=== PATIENT | female | born 1945 | race Caucasian/White ===

== ENCOUNTER 2021-11-24 10:31 | Emergency (ER) | payer MEDICARE, SELFPAY ==
--- NOTE | ~2021-11-24 | XR_ITS ---
EXAMINATION: XR chest 2V DATE: 11/24/2021 11:32 INDICATION: Cough TECHNIQUE: PA and lateral views of the chest are obtained. COMPARISON: None available FINDINGS: An 8 mm nodule projects in the right midlung zone PA view. There are minimal airspace opaci ties left lower lobe. There is no pleural effusion or pneumothorax. The cardiomediastinal silhouette is normal. There is moderate thoracic spondylosis. IMPRESSION: 1. Left lower lobe airspace opacity, likely infectious or inflammatory. 2. Indeterminate right lung nodule. Follow-up with nonemergent CT of the chest is recommended. Reviewed, dictated and finalized at location A. GGER
[2021-11-24 10:40] VITALS: BP 153/70; PULSE 88; RESP 16; TEMP 37.4; O2SAT 99
--- NOTE | 2021-11-24 11:33 | ED.GENADULT ---
HPI - General Adult General Chief complaint: Upper Respiratory Infection Stated complaint: losing voice/facial pressure/neck pain/fever Source: patient Mode of arrival: ambulatory Limitations: no limitations History of Present Illness HPI narrative: Patient presents for evaluation of respiratory symptoms for last 2 days. She indicates she feels like she is lost (her) voice . She reports postnasal drainage without any congestion or significant discharge from her nares. She had a temperature of 100.2 F last night. She has some chronic SOB which she attributes to asthma. She does have exertional dyspnea and nonproductive cough. No chills, nausea, vomiting, diarrhea or chest pain. No recent sick contacts. She took three COVID test within the last week and have as she was traveling. All of these tests were negative. She took a home Covid last night which was also negative. She does not smoke. She did receive both doses of her COVID vaccine but not her booster. She uses symbicort at home once per day but has not used an albuterol inhaler. No additional complaints or concerns. Related Data Home Medications Medication Instructions Recorded Confirmed budesonide-formoterol [Symbicort] INHALATION 11/24/21 escitalopram oxalate mg 11/24/21 Allergies Allergy/AdvReac Type Severity Reaction Status Date / Time No Known Allergies Allergy Verified 11/24/21 10:44 Review of Systems Review of Systems: CONSTITUTIONAL: Reports fever. Denies chills. EYES: Denies visual changes, redness, or discharge. ENT: Reports losing her voice and postnasal drainage. Denies sore throat, otalgia CARDIOVASCULAR: Denies chest pain, palpitations, or edema. RESPIRATORY: Nonproductive cough and shortness of breath. GASTROINTESTINAL: Denies abdominal pain, nausea, vomiting, or diarrhea. GENITOURINARY: Denies dysuria or hematuria. SKIN: Denies rash or itching. MUSCULOSKELETAL: Denies back pain, joint pain, or myalgia. NEUROLOGIC: Denies headache, numbness, dizziness, or weakness. PSYCHIATRIC: Denies anxiety or depression. ON LICENSE OF [facility] Past Medical History Medical History (Updated 11/24/21 @ 11:51 by Indio Baltazar, RADHA, ) History of breast cancer Surgical History Surgical History History of lumpectomy History of partial hysterectomy Family History Family History Mother COPD (chronic obstructive pulmonary disease) Breast cancer Social History Social History Smoking status: Never smoker Substance use: never Living arrangements: alone Gender identity (if verbalized by the patient): Female Sexual Orientation (if Verbalized by the Patient): Straight or Heterosexual Spiritual care concerns: No Exam Narrative: GENERAL: Well-appearing, well-nourished, and in no acute distress. HEAD: Normocephalic, atraumatic. EYES: PERRLA and EOMI. ENT: Nares clear, no rhinorrhea or epistaxis. Mucous membranes moist. Oropharynx without tonsillar hypertrophy exudate or other lesions. There is posterior pharyngeal erythema. Bilateral TMs pearly stapleton nonbulging NECK: Supple. No adenopathy or masses. No carotid bruits or JVD CHEST: Clear to auscultation. No respiratory distress. No wheezes rales or rhonchi HEART: Regular rate and rhythm. No murmur heard. Normal peripheral pulses. ABDOMEN: Soft, nontender, nondistended, normal active bowel sounds. EXTREMITIES: Normal range of motion. No edema. SKIN: Warm, dry, no rash. NEURO: No focal deficits. Alert and oriented x3. PSYCH: Normal mood and affect. Course Course Emergency Course: This is a 76-year-old female who presented with complaints of respiratory symptoms for last 2 days. Flu, strep are all negative. Chest x-ray with left lower lobe opacity. Will treat for pneumonia. She also has a pulmonary nodule and was ad
[2021-11-26 17:26] LABS: SARS-CoV-2 RNA PCR Negative
== END 2021-11-24 12:05 | disposition home or self-care (01) ==
PROVIDERS: Emergency Provider Nurse Practitioner; PCP Internal Medicine
DX: J18.1 Lobar pneumonia, unspecified organism (principal); Z20.822 Contact with and (suspected) exposure to COVID-19; Z85.3 Personal history of malignant neoplasm of breast
CPT/HCPCS: 71046; 87081; 87426; 87804; 87880; 99213; C9803; G0463; U0003; U0005

== ENCOUNTER 2022-01-03 08:26 | Outpatient (CLI) | payer MEDICARE, SELFPAY ==
--- NOTE | ~2022-01-03 | CT_ITS ---
EXAMINATION: CT diagnostic chest w con DATE: 01/03/2022 08:45 INDICATION: Solitary pulmonary nodule TECHNIQUE: Transaxial computed tomographic images of the chest were obtained after the administration of 75 cc of Omnipaque 350 intravenous contrast. The dose-length product (DLP) was 134.66 mGy-cm. Ite rative reconstruction was used. COMPARISON: Chest radiograph, 11/24/2021 FINDINGS: No suspicious nodule is identified to correlate with the abnormality seen on the recent marivel st radiograph. Calcified pulmonary nodules and calcified bilateral hilar and mediastinal lymph nodes are consistent with old granulomatous disease. There are minimal airspace opacities of the right uppe r lobe and left lower lobe. There is no pleural effusion or pneumothorax. There is moderate thoracic spondylosis. IMPRESSION: 1. No suspicious lung nodules identified. 2. Minimal airspace opacities of the right upper and left lower lobes, likely infectious or inflammat ory. Reviewed, dictated and finalized at location B. IMPRESSION: 1. No suspicious lung nodules identified. 2. Minimal airspace opacities of the right upper and left lower lobes, likely i nfectious or inflammatory.
== END 2022-01-03 08:27 | disposition home or self-care (01) ==
LOC: ANHIMG 08:29
PROVIDERS: PCP Internal Medicine; Visit Provider Internal Medicine
DX: R91.1 Solitary pulmonary nodule (principal)
CPT/HCPCS: 71260; Q9967

== ENCOUNTER 2022-03-14 12:52 | Outpatient (CLI) | payer MEDICARE, SELFPAY ==
--- NOTE | ~2022-03-14 | DEXA_ITS ---
Bone Density Report Name: DESTIN LOYA Age: 76 Sex: Female Ethnicity: White Date of : 1945 Indication: postmenopausal; screening for osteoporosis; height loss; cancer; asthma or emphysema; hysterectomy; Referring Provider: AFTAB GARRETT Study: Bone densitometry was performed. Exam Date: March 14, 2022 Accession number: [id number] Bone Density: Region BMD T-score Z-score Classification AP Spine(L1-L4) 0.923 -1.1 1.4 Osteopenia Femoral Neck (Left) 0.667 -1.6 0.5 Osteopenia Total Hip (Left) 0.793 -1.2 0.7 Osteopenia Femoral Neck (Right) 0.709 -1.3 0.9 Osteopenia Total Hip (Right) 0.731 -1.7 0.2 Osteopenia Total Hip Mean 0.762 -1.5 0.5 Osteopenia World Health Organization criteria for BMD impression classify patients as: Normal (T-score at or above -1.0), Osteopenia (T-score between -1.0 and -2.5), or Osteoporosis (T-score at or below -2.5). 10-year Fracture Risk(1): Major Osteoporotic Fracture 13% Hip Fracture 3.0% Reported Risk Factors: [place] (), Neck BMD=0.667, BMI=25.9 (1) FRAX(R) Version 3.08. Fracture probability calculated for an untreated patient. Fracture probability may be lower if the patient has received treatment. Clinical Information Provided by Patient: Has used the following medications: Vitamin D Has the following medical conditions: Asthma or Emphysema, Cancer, Hysterectomy Patient maximum height was 66 Menopause Age: 52 No regular weight bearing exercise Drinks caffeinated beverages Onset of menses at age 11 Number of children 2 Impression: The patient has low bone mass, based on the Right Total Hip T-score. The patient has an estimated ten-year risk of hip fracture of 3% and an estimated ten-year risk of major fracture of 13%, based on the WHO FRAX algorithm. Discussion: BONE DENSITY IS LOW AT ONE OR MORE SKELETAL SITES. THE PATIENT'S BMD AND CLINICAL RISK FACTORS CONTRIBUTE TO THIS PATIENT'S INCREASED RISK OF FRACTURE. This patient's lowest T-score is low at one or more skeletal sites. It meets the World Health Organization's (WHO) criteria for ?low bone mass? (T-score between -1.0 and -2.5). The patient's 10-year risk of hip fracture as calculated by FRAX exceeds the threshold where pharmacological therapy is recommended by the National Osteoporosis Foundation (NOF). However, all treatment decisions require clinical judgment and consideration of individual patient factors, including patient preferences, comorbidities, previous drug use, risk factors not captured in the FRAX model (e.g., frailty, falls, vitamin D deficiency, increased bone turnover, interval significant decline in bone density) and possible under or overestimation of fracture risk by FRAX. The patient should follow a healthful lifestyle (good nutrition with adequate
== END 2022-03-14 12:53 | disposition home or self-care (01) ==
PROVIDERS: PCP Internal Medicine; Visit Provider Internal Medicine
DX: Z78.0 Asymptomatic menopausal state (principal); M85.88 Other specified disorders of bone density and structure, other site; M85.851 Other specified disorders of bone density and structure, right thigh; M85.852 Other specified disorders of bone density and structure, left thigh
CPT/HCPCS: 77080

== ENCOUNTER 2022-10-23 12:17 | Outpatient (CLI) | payer MEDICARE, SELFPAY ==
--- NOTE | ~2022-10-23 | US_ITS ---
EXAMINATION: US soft tissue UE RT DATE: 10/23/2022 13:11 INDICATION: New onset pulsatile mass at the radial volar aspect of the wrist. TECHNIQUE: Multiple grayscale and Doppler ultrasound images of the region of concern at the radial si de of the volar aspect of the wrist/carpus were obtained. COMPARISON: None FINDINGS: 8 x 7 x 4 mm loculated anechoic fluid collection at the region of concern. There appears to be subtle hypoechoic neck tracking deeper towards the joint spaces at the palmar/radial aspect of the carpus. The radial artery and vein pass superficial to the cystic lesion. On real-time ultrasound a small bra nch of the radial artery can be seen tracking abutting the peripheral margin of but continuing beyond the cystic lesion. There is no evident internal flow within the cystic lesion on color Doppler to perez ggest pseudoaneurysm. Location appearance would be most consistent with a ganglion cyst. IMPRESSION: 1. 8 x 7 x 4 mm likely ganglion cyst at the region of concern Reviewed, dictated and finalized at location A. ET MARKER
== END 2022-10-23 12:18 | disposition home or self-care (01) ==
LOC: ANHIMG 12:18
PROVIDERS: PCP Internal Medicine; Visit Provider Internal Medicine
DX: M79.89 Other specified soft tissue disorders (principal)
CPT/HCPCS: 76882

== ENCOUNTER 2023-12-01 12:54 | Outpatient (CLI) | payer MEDICARE, SELFPAY ==
[2023-12-01 13:24] LABS: Basophils Absolute Auto 0.1 K/mm3 (0.0-0.1); Basophils Percent Auto 0.9 % (0.2-1.2); Eosinophils Absolute Auto 0.2 K/mm3 (0-0.3); Eosinophils Percent Auto 2.7 % (0-4.4); Hematocrit 37.5 % (37.0-47.0); Hemoglobin 12.2 g/dL (12.0-15.0); Immature Granulocyte Absolute 0.04 K/mm3 (0.00-0.031); Immature Granulocyte Percent A 0.5 % (0-0.5); Lymphocytes Absolute Auto 1.18 K/mm3 (0.9-3.2); Mean Corpuscular HGB Conc 32.5 g/dl (32-36); Mean Corpuscular Hemoglobin 30.8 pg (26-34); Mean Corpuscular Volume 94.7 fl (80-100); Mean Platelet Volume 8.5 fl (7.4-10.4); Monocytes Absolute Auto 0.8 K/mm3 (0.1-0.6); Monocytes Percent Auto 9.2 % (2.6-8.5); Neutrophils Absolute Auto 6.1 K/mm3 (1.3-6.7); Neutrophils Percent Auto 72.7 % (45.5-73.1); Platelet Count Result 402 k/mm3 (150-375); Red Blood Count 3.96 M/mm3 (4.2-5.4); Red Cell Distribution Width 12.9 % (11.5-14.5); White Blood Count 8.5 K/mm3 (4.5-10.0)
[2023-12-01 13:36] LABS: Anion Gap 7 mmol/L (8-16); Blood Urea Nitrogen 7 mg/dL (7-17); Calcium 9.2 mg/dL (8.4-10.2); Carbon Dioxide 27 mmol/L (22-30); Chloride 103 mmol/L (98-107); Estimated Glomerular Filt Rate > 60; Glucose 97 mg/dL (65-110); Potassium 4.2 mmol/L (3.4-5.0); Sodium 137 mmol/L (137-145)
[2023-12-01 13:37] LABS: INR 1.2; Prothrombin Time 16.4 Seconds (11.1-14.7)
[2023-12-01 13:39] LABS: Partial Thromboplastin Time 76.9 SECONDS (22.3-36.8)
[2023-12-01 13:45] LABS: NT Pro B Type Natriuretic Pept 373 pg/mL (19.9-100)
== END 2023-12-01 12:55 | disposition home or self-care (01) ==
LOC: ANHLAB 12:59
PROVIDERS: PCP Internal Medicine; Visit Provider Internal Medicine
DX: R07.9 Chest pain, unspecified (principal); R06.02 Shortness of breath; R06.09 Other forms of dyspnea; I10 Essential (primary) hypertension
CPT/HCPCS: 36415; 80048; 83880; 85025; 85610; 85730

== ENCOUNTER 2023-12-01 14:47 | Outpatient (CLI) | payer MEDICARE, SELFPAY ==
--- NOTE | ~2023-12-01 | CT_ITS ---
EXAMINATION: CTA chest PE protocol DATE: 12/01/2023 15:14 INDICATION: Shortness of breath TECHNIQUE: Computed tomography angiography (CTA) of the chest was performed with 100 mL Omnipaque-350 intravenous contrast timed to evaluate the pulmonary arteries. Coronal maximum intensity projection 3D-reconstructions were created by the technologist. The dose-length product (DLP) was 233.97 mGy-cm. Automated exposure control and iterative reconstruction technique were employed. COMPARISON: 01/03/2022 FINDINGS: The pulmonary arteries are well-opacified. No pulmonary embolism is identified. There are patchy airspace opacities throughout the lungs, worst in the upper lobes. No pleural effusion or pneu mothorax. Calcified pulmonary nodules and calcified bilateral hilar and mediastinal lymph nodes are c onsistent with old granulomatous disease. There is mild right hilar lymphadenopathy. The heart size i s normal. Calcified coronary artery atherosclerosis is noted. There is severe thoracic spondylosis. A chronic mild compression fracture of T6 is noted. IMPRESSION: 1. No pulmonary embolus identified. 2. Patchy airspace opacities throughout all lung zones, consistent with pneumonia. Reviewed, dictated and finalized at location B. UIT BOARD DRAFTER IMPRESSION: 1. No pulmonary embolus identified. 2. Patchy airspace opacities throughout all lung zones, consistent with pneumon ia.
== END 2023-12-01 14:48 | disposition home or self-care (01) ==
LOC: ANHIMG 14:50
PROVIDERS: PCP Internal Medicine; Visit Provider Internal Medicine
DX: R06.02 Shortness of breath (principal); R06.09 Other forms of dyspnea; R91.8 Other nonspecific abnormal finding of lung field
CPT/HCPCS: 36415; 71275; 80048; 83880; 85025; 85610; 85730; Q9967

== ENCOUNTER 2023-12-05 13:49 | Outpatient (CLI) | payer MEDICARE, SELFPAY ==
--- NOTE | ~2023-12-05 | XR_ITS ---
XR chest 2V 12/05/2023 14:02 Indication: Pneumonia. Procedure: 2 view chest Comparison: CT dated 12/01/19 Findings: Ill-defined infiltrates of the right mid and lower lung, compatible with pneumonia. Heart s ize normal. There is atherosclerosis and ectasia of the aorta. There are calcified granulomas bilater ally. No acute osseous abnormality. No significant effusion or pneumothorax. Impression: 1: Ill-defined infiltrates of the right mid and lower lung, compatible with pneumonia. Reviewed, dictated and finalized at location A. CH LANG PATH Impression: 1: Ill-defined infiltrates of the right mid and lower lung, compatible with pne umonia.
== END 2023-12-05 13:50 | disposition home or self-care (01) ==
PROVIDERS: PCP Internal Medicine; Visit Provider Internal Medicine
DX: J18.9 Pneumonia, unspecified organism (principal); R91.8 Other nonspecific abnormal finding of lung field
CPT/HCPCS: 71046

== ENCOUNTER 2024-01-01 13:18 | Outpatient (CLI) | payer MEDICARE, SELFPAY ==
--- NOTE | ~2024-01-01 | XR_ITS ---
XR chest 2V DATE: 01/01/2024 13:42 INDICATION: Cough TECHNIQUE: PA and lateral views COMPARISON: 12/05/2023 PA and lateral chest FINDINGS: Normal heart size. Mild aortic tortuosity and calcification. No hilar or mediastinal enlarg ement. Moderate bilateral hyperinflation. No pulmonary infiltrate or consolidation, pleural effusion or pulmonary mass congestion or pneumothor ax. Osteopenia. Mild degenerative spurring of the thoracic and lumbar spine. IMPRESSION: Moderate bilateral hyperinflation; no active cardiopulmonary disease Reviewed, dictated and finalized at location L. IMPRESSION: Moderate bilateral hyperinflation; no active cardiopulmonary diseas e
[2024-01-01 14:18] LABS: Anion Gap 5 mmol/L (8-16); Blood Urea Nitrogen 13 mg/dL (7-17); Calcium 9.8 mg/dL (8.4-10.2); Carbon Dioxide 31 mmol/L (22-30); Chloride 101 mmol/L (98-107); Estimated Glomerular Filt Rate > 60; Glucose 97 mg/dL (65-110); Potassium 3.8 mmol/L (3.4-5.0); Sodium 137 mmol/L (137-145)
[2024-01-01 14:24] LABS: NT Pro B Type Natriuretic Pept 232 pg/mL (19.9-100)
== END 2024-01-01 13:19 | disposition home or self-care (01) ==
PROVIDERS: PCP Internal Medicine; Visit Provider Internal Medicine
DX: R05.9 Cough, unspecified (principal); I10 Essential (primary) hypertension; R06.09 Other forms of dyspnea; R91.8 Other nonspecific abnormal finding of lung field
CPT/HCPCS: 36415; 71046; 80048; 83880

== ENCOUNTER 2024-04-28 15:42 | Outpatient (CLI) | payer MEDICARE, SELFPAY ==
--- NOTE | ~2024-04-28 | XR_ITS ---
AP lateral views of the right hip Clinical history: Pain Findings: No acute fracture or dislocation is seen. Osseous alignment is anatomic. There is mild dege nerative change of the right hip joint.. Soft tissues are unremarkable. Impression: Mild degenerative change of the right hip joint. Reviewed, dictated and finalized at location . Impression: Mild degenerative change of the right hip joint.
--- NOTE | ~2024-04-28 | XR_ITS ---
Lumbosacral Spine: AP and lateral views Clinical History: Pain Findings: The normal lordotic curve is maintained. No fracture evident. There is 5-6 mm anterolisthes is of L4 over L5. There are severe facet arthropathy cervical spine, especially from L3 through S1. T here are mild degenerative disc changes throughout.. The sacroiliac joints are normally outlined. Impression: Moderate to advanced degenerative spondylosis, with extensive facet arthropathy, as detailed above. 5-6 mm anterolisthesis of L4 over L5. No definite instability seen on flexion or extension. Reviewed, dictated and finalized at location . Impression: Moderate to advanced degenerative spondylosis, with extensive facet arthropathy , as detailed above. 5-6 mm anterolisthesis of L4 over L5. No definite instability seen on flexion o r extension.
== END 2024-04-28 15:43 | disposition home or self-care (01) ==
LOC: ANHIMG 15:43
PROVIDERS: PCP Internal Medicine; Visit Provider Internal Medicine
DX: M16.11 Unilateral primary osteoarthritis, right hip (principal); M47.896 Other spondylosis, lumbar region
CPT/HCPCS: 72110; 73502

== ENCOUNTER 2024-05-03 13:47 | Outpatient (CLI) | payer MEDICARE, SELFPAY ==
--- NOTE | ~2024-05-03 | MR_ITS ---
EXAMINATION: MR lumbar spine wo con DATE: 05/03/2024 14:25 INDICATION: Spondylosis without myelopathy or radiculopathy TECHNIQUE: Magnetic resonance imaging (MRI) of the lumbar spine was performed without intravenous con trast. Sequences included sagittal T2-weighted FSE, sagittal T2-weighted FS FSE, sagittal T1-weighted FSE, and axial T2-weighted FSE. COMPARISON: None FINDINGS: 9 degrees lumbar dextrocurvature. 1.5 mm retrolisthesis T12 on L1, 2 mm retrolisthesis L1 on L2, 4 mm anterolisthesis L4 on L5 and 2 mm retrolisthesis L5 on S1. Vertebral body heights are normal. Severa l scattered small T1 hyperintense hemangiomas throughout the lumbar and lower thoracic spine. Marrow signal is otherwise unremarkable. Mild disc height loss at T11-T12 through L2-L3, minimal disc height loss at L3-L4, mild to moderate disc height loss at L4-L5 and moderate to severe disc height loss at L5-S1. There are annular fissures at many of these levels. The conus medullaris terminates at L1. Th ere is normal signal in the caudal spinal cord. Paravertebral soft tissues are unremarkable. The foll owing disc levels are specifically discussed: T12-L1: Disc is bulging. There is moderate bilateral facet joint osteoarthritis. There is mild bilate ral neural foraminal stenosis. There is mild central canal stenosis. L1-L2: Disc is bulging. There is moderate bilateral facet joint osteoarthritis. There is moderate lef t and mild to moderate right neural foraminal stenosis. There is mild central canal stenosis. L2-L3: Disc is mildly bulging a superimposed bilateral foraminal zone disc protrusions. There is hype rtrophy of the ligamentum flavum. There is moderate left and mild to moderate right facet joint osteo arthritis. There is mild to moderate bilateral neural foraminal stenosis. There is mild central canal stenosis. L3-L4: Disc is mildly bulging. There is hypertrophy of the ligamentum flavum. There is severe bilater al facet joint osteoarthritis. There is mild bilateral neural foraminal stenosis. There is mild centr al canal stenosis. L4-L5: Disc is bulging. There is hypertrophy of the ligamentum flavum. There is severe bilateral face t joint osteoarthritis. There is mild to moderate bilateral neural foraminal stenosis. There is mild to moderate central canal stenosis with narrowing of the left and right lateral recesses. L5-S1: Disc is bulging with superimposed annular fissure and central disc extrusion with disc materia l extending up to 4 mm caudal to the level of the superior endplate of S1. There is severe right and moderate to severe left facet joint osteoarthritis. There is moderate bilateral neural foraminal sten osis. There is minimal central canal stenosis. IMPRESSION: 1. 9 degrees lumbar dextrocurvature with moderate to severe spondylosis. Reviewed, dictated and finalized at location A.
== END 2024-05-03 13:48 ==
PROVIDERS: Visit Provider Internal Medicine
DX: M47.812 Spondylosis without myelopathy or radiculopathy, cervical region (principal); M54.9 Dorsalgia, unspecified; M47.896 Other spondylosis, lumbar region
CPT/HCPCS: 72148

== ENCOUNTER 2024-09-13 13:06 | Outpatient (CLI) | payer MEDICARE, SELFPAY ==
--- NOTE | ~2024-09-13 | XR_ITS ---
XR_[id number]_CR Ordering provider: Faustino Kendrick MD History: . M54.9 - Dorsalgia, unspecified, PAIN TO NECK HX FALL . Comparison: None. FINDINGS: VERTEBRAL BODIES: Horizontal lucency seen in C5 which is highly suggestive of a fracture. CT is advis ed. Otherwise Normal height and alignment. No visible subluxation. The dens is intact. DISK SPACES: Narrowing of the disc C5-C6. Multilevel facet joint disease. Multilevel Uncovertebral beth int osteoarthritic changes PARASPINOUS SOFT TISSUES: No prevertebral soft tissue swelling. IMPRESSION: Highly suggestive horizontal fracture and C5. CT or MRI is advised for confirmation. Degenerative disc disease at the level of C5-C6. Reviewed, dictated and finalized at location A. TION AND MEASUREMENT TECHNICIAN IMPRESSION: Highly suggestive horizontal fracture and C5. CT or MRI is advised for confirma tion. Degenerative disc disease at the level of C5-C6.
--- NOTE | ~2024-09-13 | XR_ITS ---
XR ribs BI 3V w CXR 2V Ordering provider: Faustino Kendrick MD History: . M54.9 - Dorsalgia, unspecified . Comparison: None. FINDINGS: BONES: No acute rib fracture. Degenerative spine. MEDIASTINUM: The cardiac silhouette is not enlarged. LUNGS: No effusions or infiltrates. No pneumothorax. Emphysematous changes of the lungs. SOFT TISSUES: Normal. IMPRESSION: No acute osseous abnormality of the bilateral ribs. (Note: subtle/nondisplaced rib fractures can be o ccult on plain films and if there is continued clinical suspicion for rib fracture, recommend follow up CT chest.) Reviewed, dictated and finalized at location A. AL GENETICIST IMPRESSION: No acute osseous abnormality of the bilateral ribs. (Note: subtle/nondisplaced rib fractures can be occult on plain films and if there is continued clinical s uspicion for rib fracture, recommend follow up CT chest.)
--- NOTE | ~2024-09-13 | XR_ITS ---
3 VIEWS THORACIC SPINE Ordering provider: Faustino Kendrick MD History: . M54.9 - Dorsalgia, unspecified, PAIN UPPER BACK HX FALL . Comparison: None. FINDINGS: VERTEBRAL BODIES: Loss of volume of T4 and T5 which may be acute or chronic. CT evaluation advised. O therwise, Normal height and alignment. No visible subluxation. Degenerative changes. Severe kyphosis. DISK SPACES: Multilevel narrowing in the mid and lower thoracic area. SOFT TISSUES: Normal. IMPRESSION: Loss of volume of T4 and C5 which may be acute or chronic. CT evaluation advised. Reviewed, dictated and finalized at location A. SKATING INSTRUCTOR IMPRESSION: Loss of volume of T4 and C5 which may be acute or chronic. CT evaluation advise fernando
== END 2024-09-13 13:07 | disposition home or self-care (01) ==
PROVIDERS: PCP Internal Medicine; Visit Provider Internal Medicine
DX: M50.322 Other cervical disc degeneration at C5-C6 level (principal)
CPT/HCPCS: 71046; 71110; 72040; 72072

== ENCOUNTER 2024-09-14 12:33 | Emergency (ER) | payer MEDICARE, SELFPAY ==
--- NOTE | ~2024-09-14 | CT_ITS ---
EXAMINATION: CT thoracic spine wo con DATE: 09/14/2024 13:16 INDICATION: Back pain. TECHNIQUE: Computed tomography (CT) of the thoracic spine was performed without intravenous contrast. Automated exposure control and iterative reconstruction technique were employed. The dose-length pro duct was 542.07 mGy-cm. COMPARISON: Thoracic spine radiographs 09/13/2024, chest CT 12/01/2023 FINDINGS: Calcified pulmonary nodules and calcified hilar and mediastinal lymph nodes are consistent with old granulomatous disease. Calcifications in the liver and spleen are consistent with old granul omatous disease. There is kyphosis of thoracic spine. There are chronic compression fractures of T4 a nd T6 with 1/5 loss of height. There is a compression fracture of T5 with 1/5 loss of height, new fro m 12/01/2023. There is decreased disc height at many levels, severe from T4-T5 through T8-T9. There is multilevel facet joint osteoarthritis, severe at many levels. There is mild neural frontal stenosis at multiple levels on either side. On the left, there is moderate neural foraminal stenosis at L1-L2. There is mild central canal stenosis at T6-T7, T7-T8, T12-L1, and L1-L2. IMPRESSION: 1. Age-indeterminate T5 compression fracture, new from 12/01/2023. 2. Severe thoracic spondylosis. 3. Thoracic kyphosis. Reviewed, dictated and finalized at location A. 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
--- NOTE | ~2024-09-14 | CT_ITS ---
EXAMINATION: CT cervical spine wo con DATE: 09/14/2024 13:16 INDICATION: C5 fracture. Dorsalgia. TECHNIQUE: Computed tomography (CT) of the cervical spine was performed without intravenous contrast. Automated exposure control and iterative reconstruction technique were employed. The dose-length pro duct was 169.00 mGy-cm. COMPARISON: Cervical spine radiographs 09/13/2024 FINDINGS: There is 2 mm anterolisthesis of C4 on C5, 2 mm retrolisthesis of C5 on C6, and 2 mm scout listhesis of C7 on T1. Vertebral body heights are normal. There is moderately decreased disc height a t C2-C3, mildly decreased disc height at C4-C5, severely decreased disc height at C5-C6, moderately d ecreased disc height at C6-C7, and mildly decreased disc height at C7-T1. The following disc levels a re specifically discussed: C2-C3: There is mild bilateral uncovertebral joint osteoarthritis. There is severe bilateral facet beth int osteoarthritis. There is mild bilateral neural foraminal stenosis. There is no central canal sten osis. C3-C4: There is mild right and moderate left uncovertebral joint osteoarthritis. There is severe bila teral facet joint osteoarthritis. There is mild right and moderate left neural foraminal stenosis. Th ere is no central canal stenosis. C4-C5: There is mild bilateral uncovertebral joint osteoarthritis. There is severe bilateral facet beth int osteoarthritis. There is mild bilateral neural foraminal stenosis. There is mild central canal st enosis. C5-C6: There is severe bilateral uncovertebral joint osteoarthritis. There is severe bilateral facet joint osteoarthritis. There is mild right and moderate left neural foraminal stenosis. There is moder ate central canal stenosis. C6-C7: There is moderate right and mild left uncovertebral joint osteoarthritis. There is severe bila teral facet joint osteoarthritis. There is mild right and moderate left neural foraminal stenosis. Th ere is mild central canal stenosis. C7-T1: There is no uncovertebral joint osteoarthritis. There is severe bilateral facet joint osteoart hritis. There is mild bilateral neural foraminal stenosis. There is no central canal stenosis. IMPRESSION: 1. No fracture. 2. Severe cervical spondylosis. Reviewed, dictated and finalized at location A. 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
[2024-09-14 12:36] VITALS: BP 176/79; PULSE 72; RESP 16; TEMP 36.3; O2SAT 100
--- NOTE | 2024-09-14 13:52 | ED_ITS ---
HPI - General Adult General Chief complaint: Back Pain/Injury Stated complaint: told to come here by PCP for c-spine fracture Time Seen by Provider: 09/14/24 13:17 History of Present Illness HPI narrative: 78-year-old female presenting to the emergency department for evaluation for lalit k pain after having a ground level fall approximately 3 weeks ago. Patient states that she stumbled getting onto her porch when she laid on her right side. Patient denies striking head denies loss of consciousness. Patient states she is still having intermittent back pain. Patient did have follow-up with her primary care physician she had outpatient imaging that was concerning for neck pathology and patient was referred to the emergency department for further evaluation. Related Data Home Medications Medication Instructions Recorded Confirmed calcium carbonate (Calcium 600) 600 mg PO BID 03/20/22 09/13/24 cholecalciferol (vitamin D3) 25 50 mcg PO DAILY 03/20/22 09/13/24 mcg (1,000 unit) capsule fluticasone fur. 100 mcg-umeclid 1 inh inhalation DAILY 06/20/22 09/13/24 62.5 mcg-vilant 25 mcg inhalat.powder (Trelegy Ellipta) ascorbate calcium (vitamin C) 500 500 mg PO DAILY 07/16/23 09/13/24 mg tablet aspirin 81 mg tablet 81 mg PO DAILY 08/14/23 09/13/24 atorvastatin 20 mg tablet 20 mg PO DAILY 12/01/23 09/13/24 vit C 250 mg-vit E 90 mg-zinc 40 1 tablet PO DAILY 12/01/23 09/13/24 mg-copper 1 [id number] capsule (PreserVision AREDS-2) Allergies Allergy/AdvReac Type Severity Reaction Status Date / Time No Known Allergies Allergy Verified 09/14/24 13:42 Review of Systems Review of Systems: All systems reviewed & are unremarkable except as noted in HPI and below PMFSH Past Medical History Medical History (Reviewed 09/13/24 @ 15:03 by Cookie Baker [facility]) Asthma Benign essential hypertension BMI 25.0-25.9,adult BMI 26.0-26.9,adult BMI 27.0-27.9,adult BPPV (benign paroxysmal positional vertigo) Chest pain Congestion of both ears LEONE (dyspnea on exertion) Elevated blood pressure reading Encounter for Medicare annual wellness exam Encounter for routine adult health examination with abnormal findings Encounter to establish care Follow up H/O motion sickness Hearing loss History of breast cancer Hx of colonic polyps Hypersomnolence Lung nodule Mass of right wrist On nursing home drug therapy Palpitations Personal history of COVID-19 Post-menopausal Right hip pain Right leg pain Skin laceration URI (upper respiratory infection) Surgical History Surgical History (Reviewed 09/13/24 @ 15:03 by Cookie Baker [facility]) History of lumpectomy History of partial hysterectomy Family History Family History (Reviewed 09/13/24 @ 15:03 by Cookie Baker [facility]) Mother COPD (chronic obstructive pulmonary disease) Breast cancer Father Renal cancer Hypertension Sibling Asthma Social History Social History (Reviewed 09/13/24 @ 15:03 by Cookie Baker [facility]) Smoking status: Never smoker Second hand tobacco smoke exposure: Yes Alcohol intake: current Alcohol use details: social ETOH- wine Substance use: never Lack of Transportation: No Lack of Food: Never True Current Housing: I Have Housing Concerned About Future Housing: No Difficulty Paying Gas/Electric Bills: No Difficulty Paying for Meds: No Currently Unemployed: No Education: Trade/Vocational Certificate Difficulty w/ Childcare or Family Care: No Living arrangements: alone Occupation/Education: retired Gender identity (if verbalized by the patient): Female Sexual Orientation (if Verbalized by the Patient): Straight or Heterosexual Spiritual care concerns: No Exam Narrative: APPEARANCE: Well appearing, no pain, no distress, well-nourished. HEAD: normocephalic, atraumatic. EYES: PERRLA/EOMI, conjunctivae clear. NOSE: Normal no drainage NECK: Supple. No adenopathy, no masses. RESPIRATORY: Airway patent, respirations nonlabored. Clear to auscultation bilaterally, no rales, rhonchi, wheezing. CARDIOVASCULAR: Regular rate and rhythm without murmurs rubs or gallops. ABDOMINAL: Soft, nontender, nondistended, normal bowel sounds MUSCULOSKELETAL: Thoracic spine tenderness without deformity NEURO: Alert. Cranial nerves II through XII intact. Grossly intact SKIN: Warm, dry. Normal Color Course Vital Signs Vital signs: Vital Signs Temperature 97.4 F L 09/14/24 12:36 Pulse Rate 72 09/14/24 12:36 Respiratory Rate 16 09/14/24 12:36 Blood Pressure 176/79 H 09/14/24 12:36 Pulse Oximetry 100 09/14/24 12:36 Oxygen Delivery Room Air 09/14/24 12:36 Temperature 97.4 F L 09/14/24 12:36 Pulse Rate 72 09/14/24 12:36 Respiratory Rate 16 09/14/24 12:36 Blood Pressure 176/79 H 09/14/24 12:36 Pulse Oximetry 100 09/14/24 12:36 Oxygen Delivery Room Air 09/14/24 12:36 Medical Decision Making MDM Narrative Medical decision making narrative: 78-year-old female presenting to the emergency department for evaluation for outpatient x-ray showing possible fracture, patient's cervical spine CT showed no acute fracture. Patient's thoracic spine CT did show a 1/5 compression fracture of T5. Patient declined any medications for pain control. Patient was encouraged of close follow-up with primary care physician and with neurosurgery. All questions concerns were addressed patient was well-appearing at time of discharge. Differential Diagnosis Differential Diagnosis: Cervical spine fracture, thoracic spine fracture, muscular strain Vital Signs Vital Signs: Vital Signs Temperature 97.4 F L 09/14/24 12:36 Pulse Rate 72 09/14/24 12:36 Respiratory Rate 16 09/14/24 12:36 Blood Pressure 176/79 H 09/14/24 12:36 Pulse Oximetry 100 09/14/24 12:36 Oxygen Delivery Room Air 09/14/24 12:36 Temperature 97.4 F L 09/14/24 12:36 Pulse Rate 72 09/14/24 12:36 Respiratory Rate 16 09/14/24 12:36 Blood Pressure 176/79 H 09/14/24 12:36 Pulse Oximetry 100 09/14/24 12:36 Oxygen Delivery Room Air 09/14/24 12:36 Lab Data Lab results reviewed: Yes I reviewed the patient's lab results. Imaging Data Radiologist's impression: Impressions Cervical Spine CT 09/14/24 13:19 IMPRESSION: 1. No fracture. 2. Severe cervical spondylosis. Thoracic Spine CT 09/14/24 13:25 IMPRESSION: 1. Age-indeterminate T5 compression fracture, new from 12/01/2023. 2. Severe thoracic spondylosis. 3. Thoracic kyphosis. Discharge Plan Discharge Clinical Impression: Compression fracture of T5 vertebra Patient Disposition: Home, Self-Care Condition: Stable Instructions: Antibiotic Form, Vertebral Compression Fracture (ED), Thoracic Back Strain (ED) Additional Instructions: Tylenol and ibuprofen for pain control. Have close follow-up with your primary care physician. Have close follow-up with Neurosurgery. If you have any worsening symptoms then please call or return to the emergency department. Prescriptions: No Action ascorbate calcium (vitamin C) 500 mg tablet 500 mg PO DAILY scopolamine base 1 mg over 3 days patch 3 day 1 patch transdermal Q3D PRN (Reason: motion sickness) Qty: 3 0RF Trelegy Ellipta 100-62.5-25 mcg blister with device 1 inh inhalation DAILY aspirin 81 mg tablet 81 mg PO DAILY PreserVision AREDS-2 250-90-40-1 mg capsule 1 tablet PO DAILY atorvastatin 20 mg tablet 20 mg PO DAILY tramadol 50 mg tablet 50 mg PO Q6H PRN (Reason: pain) Qty: 50 0RF calcium carbonate [Calcium 600] 600 mg calcium (1,500 mg) tablet 600 mg PO BID cholecalciferol (vitamin D3) 25 mcg (1,000 unit) capsule 50 mcg PO DAILY mupirocin 2 % ointment 1 applic topical BID Qty: 22 0RF diltiazem HCl 240 mg capsule,extended release 24hr See Rx Instructions .ROUTE .COMPLEX Qty: 90 0RF Dose Instruction: TAKE 1 CAPSULE BY MOUTH DAILY Rx Instructions: TAKE 1 CAPSULE BY MOUTH DAILY escitalopram oxalate 10 mg tablet See Rx Instructions .ROUTE .COMPLEX Qty: 90 0RF Dose Instruction: TAKE 1 TABLET BY MOUTH EVERY DAY Rx Instructions: TAKE 1 TABLET BY MOUTH EVERY DAY Follow-up/Referrals: Faustino Kendrick MD [Primary Care Provider] - Ray Thomas MD [Physician] -
== END 2024-09-14 14:02 | disposition home or self-care (01) ==
PROVIDERS: Emergency Provider Emergency Medicine; PCP Internal Medicine
DX: S22.050A Wedge compression fracture of T5-T6 vertebra, initial encounter for closed fracture (principal); M47.814 Spondylosis without myelopathy or radiculopathy, thoracic region; M47.812 Spondylosis without myelopathy or radiculopathy, cervical region; J45.909 Unspecified asthma, uncomplicated; I10 Essential (primary) hypertension; W01.0XXA Fall on same level from slipping, tripping and stumbling without subsequent striking against object, initial encounter
CPT/HCPCS: 72125; 72128; 99284

== ENCOUNTER 2024-11-01 12:39 | Outpatient (CLI) | payer MEDICARE, SELFPAY ==
--- NOTE | ~2024-11-01 | XR_ITS ---
Thoracic spine: Clinical Indication: Fracture AP and lateral views were performed. COMPARISON: 10/21/2024 There is mild compression fracture deformity of T8, acute. There is mild to moderate degenerative dis c change throughout the thoracic spine. Paravertebral soft tissues appear normal. Impression: Mild T8 compression fracture deformity, acute, appearing new since 10/21/2024. Reviewed, dictated and finalized at location . CHECKER Impression: Mild T8 compression fracture deformity, acute, appearing new since 10/21/2024.
--- NOTE | ~2024-11-01 | XR_ITS ---
EXAMINATION: XR lumbar spine min 4V DATE: 11/01/2024 13:10 INDICATION: Dorsalgia, unspecified. TECHNIQUE: 5 views of lumbar spine including standing views were obtained. COMPARISON: Lumbar spine radiographs 02/27/24 FINDINGS: There is 3 mm anterolisthesis of L4 on L5. There is 8degrees dextrocurvature of thoracolumb ar spine. Vertebral body heights are normal. There is mildly decreased disc height at L1-L2, L2-L3, a nd L4-L5 and moderately decreased disc height at L5-S1. There is multilevel severe facet joint osteoa rthritis. IMPRESSION: 1. Moderate lumbar spondylosis. Reviewed, dictated and finalized at location B. E PLANT
== END 2024-11-01 12:40 | disposition home or self-care (01) ==
PROVIDERS: PCP Internal Medicine; Visit Provider Internal Medicine
DX: M43.06 Spondylolysis, lumbar region (principal); S22.060A Wedge compression fracture of T7-T8 vertebra, initial encounter for closed fracture; X58.XXXA Exposure to other specified factors, initial encounter
CPT/HCPCS: 72072; 72110

== ENCOUNTER 2024-11-22 10:02 | Emergency (ER) | payer MEDICARE, SELFPAY ==
--- NOTE | ~2024-11-22 | XR_ITS ---
EXAMINATION: XR chest 2V DATE: 11/22/2024 13:41 INDICATION: Weakness. TECHNIQUE: Frontal and lateral views of the chest were obtained. COMPARISON: Chest 2 views 09/13/2024, thoracic spine radiographs 11/22/2024 FINDINGS: A calcified left lung nodule is consistent with old granulomatous disease. No pleural effus ion or pneumothorax. The heart size is normal. There are changes of vertebroplasty at 2 levels. There is height loss of multiple vertebral bodies without change from 11/01/2024. IMPRESSION: 1. No acute cardiopulmonary disease. Reviewed, dictated and finalized at location A. 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
[2024-11-22 10:34] VITALS: BP 140/69; PULSE 70; RESP 15; TEMP 36.4; O2SAT 98
--- OUTSIDE RECORDS SUMMARY | 2024-11-22 10:46 | XMS_ITS ---
Author Organization [facility] Address [address] [place] [address] Care Team Providers Care Forest Fire Prevention Specialist Name Role Phone Faustino Kendrick Primary Care Provider Hermilo Venegas Unavailable [phone] REASON FOR VISIT Mri Encounters Encounter Location Date Provider Diagnosis [facility] [address] [place] [address] 11/03/2024 Hermilo Martínez PLAN OF TREATMENT No Information
--- OUTSIDE RECORDS SUMMARY | 2024-11-22 10:46 | XMS_ITS | Clinical Summary ---
Author Organization [facility] Address [address] [place] [address] Phone Care Team Providers Care Hoop Flaring Machine Operator Helper Name Role Phone Peter Garcia MD Primary Care Provider [phone] Allergies No known active allergies Medications escitalopram oxalate (LEXAPRO) 10 mg tablet Take 10 mg by mouth daily. Active omeprazole (PriLOSEC) 20 mg Capsule, Delayed Release(E.C.) Take 20 mg by mouth daily. Active fluticasone furoate-vilante roL (Breo Ellipta) 200-25 mcg/dose Disk with Device Take 1 Puff by inhalation daily. Active Active Problems No known active problems Social History Tobacco Use Types Packs/Day Years Used Date Smoking Tobacco: Never Smokeless Tobacco: Never Comments Unknown Sex and Gender Information Value Date Recorded Sex Assigned at Not on file Legal Sex Female 9:52 AM CDT Gender Identity Not on file Sexual Orientation Not on file Last Filed Vital Signs Vital Sign Reading Time Taken Comments Blood Pressure 142/68 07/17/2020 11:56 AM CDT Pulse 85 07/17/2020 11:56 AM CDT Temperature - - Respiratory Rate 16 07/17/2020 11:5 6 AM CDT Oxygen Saturation 97% 07/17/2020 11: 56 AM CDT RA Inhaled Oxygen Concentration - - Weight 67.9 kg (149 lb 12.8 oz) 020 11:56 AM CDT Height 161.3 cm (5' 3.5 ) 07/17/2020 11 :56 AM CDT Body Mass Index 26.12 07/17/2020 11:56 AM CDT Plan of Treatment Health Maintenance Due Date Last Done Comments DTAP/TDAP/TD VACCINES (1 - Tdap) 1964 PNEUMOCOCCAL VACCINE 65+ YEA RS (2 of 2 - PPSV23) 09/08/2019 07/14/2019, 06/22/2019, 07/18/2017 RSV VACCINE (60+ or ) (1 - 1-dose 75+ series) 2019 INFLUENZA VACCINE (#1) 2024 9, 06/22/2019, 07/15/2018, Additional history exists OSTEOPOROSIS SCREENING Completed 7, 04/07/2017, 04/30/2013 ZOSTER VACCINE Completed 04/08/2019, 02/2019, 10/09/2018, Additional history exists Insurance MEDICARE PART A AND B [facility] MEDICARE SUPPLEMENT Care Teams Hoop Flaring Machine Operator Helper Relationship Specialty [place] [address] [address] [place] [address] PCP - General Internal Medicine 06/16/20
--- OUTSIDE RECORDS SUMMARY | 2024-11-22 10:46 | XMS_ITS | CONTINUITY OF CARE DOCUMENT ---
Author Name rosa lee Address Unknown Organization [facility] Address [address] [place] [address] Phone [phone] Care Team Providers Care Machine Setter Sheet Metal Name Role Phone J Luis Loza MD Unavailable [phone] J Luis Loza MD Unavailable [phone] INSURANCE PROVIDERS Payer name Policy type / Coverage type [place] red republican ID AARP MEDICARE ADVANTAGE [facility] (PPO) Medicare [id number]
--- OUTSIDE RECORDS SUMMARY | 2024-11-22 10:47 | XMS_ITS | Patient Health Record ---
Author Organization [facility] Address [address] [place] [address] Care Team Providers Care Water And Fire Technician Name Role Phone Faustino Kendrick Primary Care Provider Hermilo Venegas Unavailable [phone] Glendy Borges Unavailable [phone] ALLERGIES No Known Allergies RESULTS Component Value Reference Range Notes X ray : Lumbar Spine 3 views , AP, Lateral, Spot Reviewed date:06/24/2024 11:45:26 AM Interpretation:1033 Performing Lab: Notes/Report: 1033 X ray : Thoracic Spine 3 vie ws, AP, Lateral, Swimmers Reviewed date:11/10/2024 12:17:25 PM Interpretation:1056 Performing Lab: Notes/Report: 1056 X ray : Lumbar Spine 3 views , AP, Lateral, Spot Reviewed date:11/10/2024 12:17:11 PM Interpretation:1056 Performing Lab: Notes/Report: 1056 REASON FOR REFERRAL No Information MEDICATIONS Medication SIG (Take, Route, Frequency, Duration) Notes Start Date End Date Status Escitalopram Oxalate Active Trelegy Ellipta Acti ve Diltiazem CD Active Aspirin 81 Active PreserVision AREDS A ctive Vitamin D3 Active Vitamin C Active Calcium Active Medrol (Kurtis) 4 MG as directed on the p ackage Orally as directed on the package 11/01/2024 Not-Taking predniSONE 10 MG 1 tablet Orally bid for 10 days 06/25/2024 Not-Taking Doxycycline Active Gabapentin Not-Takin g Atorvastatin Calcium Active PROBLEMS Problem Type ICD Code Onset Dates Problem Status W/U Status Risk SNOMED Code Notes Problem Low back pain of multiple sites of spine with sciatica (M54.40) Active confirmed Sciatica (15004333) Problem Spondylolisthesis of lumbar region (M43.16) Active confirmed Acquired spondylolisthesis (847010794) Problem Osteoarthritis of right hip (M16.11) Active confirmed Localized , primary osteoarthritis of the pelvic region and thigh (230012675) Problem Compression fracture of body of thoracic vertebra (M48.54XA) Active confirmed Compression fracture of thoracic vertebra (disorder) (2151282902337) VITAL SIGNS Height 62 in 11/10/2024 Weight 142 lbs 11/10/2024 BMI 25.97 kg/m2 11/10/2024 PROCEDURES Procedure Date Ordered Date Performed Result Body Sit e Kyphoplasty, Thoracic 11/10/2024 11/10/2024 completed Kyphoplasty, Thoracic 11/10/2024 11/10/2024 completed Encounters Encounter Location Date Provider Diagnosis [facility] [address] [address] 06/24/2024 Glendytessa Marcialmary Neurogenic claudicat ion M48.062 ; Spondylolisthesis of lumbar region M43.16 ; Other low back pain M54.59 and Osteoarthritis of right hip M16.11 [facility] [address] [address] 11/10/2024 Glendy Lbiff Thoracic back pain M54.6 ; Compression fracture of body of thoracic vertebra M48.54XA and Other low back pain M54.59 [facility] [address] [address] 06/25/2024 Hermilo Martínez [facility] [address] [address] 07/14/2024 Hermilo Martínez [facility] [address] [address] 11/01/2024 Hermilo Martínez [facility] [address] [address] 11/02/2024 Hermilo Martínez [facility] [address] [address] 11/03/2024 Hermilo Martínez [facility] [address] [address] 11/10/2024 Hermilo Martínez Compression fracture of body of thoracic vertebra M48.54XA ASSESSMENTS Encounter Date Diagnosis Assessment Notes Treatment Notes Treatment Clinical Notes 06/24/2024 Neurogenic claudicat ion (ICD-10 - M48.062) 11/10/2024 Thoracic back pain (ICD-10 - M54.6) 06/24/2024 Spondylolisthesis of lumbar region (ICD-10 - M43.16) 11/10/2024 Compression fracture of body of thoracic vertebra (ICD-10 - M48.54XA) 11/10/2024 Compression fracture of body of thoracic vertebra (ICD-10 - M48.54XA) 06/24/2024 Other low back pain (ICD-10 - M54.59) 11/10/2024 Other low back pain (ICD-10 - M54.59) 06/24/2024 Osteoarthritis of ri ght hip (ICD-10 - M16.11) PLAN OF TREATMENT No Information Insurance Providers Payer Name Payer Address Payer Phone Subscriber Number Group Number Insured Name Patient Relationship to Insured Coverage Start Date Coverage End Date [facility] Medicare Advantage PPO [address] [address] [place] [address] [id number] Jamilah Kaur Self - patient is the insured MEDICAL (GENERAL) HISTORY Medical History History ICD Code Hypertension Depression Asthma Cancer, Breast and Skin Vertigo Surgical History Surgery Date(Month/Year) Bladder Suspension Hysterectomy Breast Lumpectomy Hospitalization History Reason Date(Month/Year) As per above.
--- OUTSIDE RECORDS SUMMARY | 2024-11-22 10:47 | XMS_ITS | Patient Health Record ---
Author Organization [employer] [facility] Address [address] [place] [address] Care Team Providers Care Feeder Tender Name Role Phone Faustino Kendrick Primary Care Provider Anand Segovia Jr, MD, [facility] ALLERGIES No Known Allergies REASON FOR REFERRAL No Information MEDICATIONS Medication SIG (Take, Route, Fr equency, Duration) Notes Start Date End Date Status Aspirin 81 Active dilTIAZem HCl Active Gabapentin Active Trelegy Ellipta Acti ve Escitalopram Oxalate Active Atorvastatin Calcium Active SOCIAL HISTORY Tobacco Use: Social History Observation Description Date Details (start date - stop date) Never Smoker NA - NA Sex Assigned At : Social History Observation Description Sex Assigned At Unknown Tobacco Use: Question Answer Notes Patient is a: nonsmoker Alcohol screening: Question Answer Notes Did you have a drink contain ing alcohol in the past year? Yes How often did you have a dri nk containing alcohol in the past year? Four or more times a week (4 points) How many drinks did you have on a typical day when you were drinking in the past year? 1 or 2 (0 points) How often did you have six o r more drinks on one occasion in the past year? Never (0 points) Points 4 Interpretation Positive PROBLEMS Problem Type ICD Code Onset Dates Problem Status W/U Status Risk SNOMED Code Notes Problem Primary osteoarthritis of right hip (M16.11) 02/18/20 24 Active confirmed [id number] VITAL SIGNS Height 63 in 07/20/2024 Weight 143 lbs 07/20/2024 BMI 25.33 kg/m2 07/20/2024 Encounters Encounter Location Date Provider Diagnosis [facility] [address] [place] [address] 07/20/2024 Heath Segovia Jr, MD Primary osteoarthritis of right hip M16.11 ASSESSMENTS Encounter Date Diagnosis Assessment Notes Treatment Notes Treatment Clinical Notes 07/20/2024 Primary osteoarthritis of right hip (ICD-10 - M16.11) PLAN OF TREATMENT No Information Insurance Providers Payer Name Payer Address Payer Phone Subscriber Number Group Number Insured Name Patient Relationship to Insured Coverage Start Date Coverage End Date [facility] Medicare Advantage PPO [address] [address] [place] [address] [id number] Jamilah Kaur Self - patient is the insured MEDICAL (GENERAL) HISTORY Medical History History ICD Code asthma hypertension breast cancer Surgical History Surgery Date(Month/Year) hysterectomy bladder suspension
--- OUTSIDE RECORDS SUMMARY | 2024-11-22 10:47 | XMS_ITS | Clinical Summary ---
Author Organization [facility] Address [address] [place] [address] Care Team Providers Care Tester Waste Disposal Leakage Name Role Phone Faustino Kendrick MD Primary Care Provider [phone] J Luis Loza MD Unavailable Allergies No known active allergies Medications cholecalciferol (VITAMIN D3) 2,000 unit capsule Take 1 capsule (2,000 Units total) by mouth daily Active calcium-vits B7-C-R4-mineral s 166.75 mg- 166.75 unit capsule Take 1 capsule by mouth daily Active escitalopram (LEXAPRO) 10 mg tablet Take 1 tablet (10 mg total) by mouth daily 9 Active fluticasone-ume clidin-vilanter (Trelegy Ellipta) 100-62.5-25 mcg inhaler Inhale 1 puff daily Active ki-mg-XZ-vit P-wbqep-ioao-ze ax (Ocuvite Eye Plus Multi) 200-15-150 mcg tablet Take 1 tablet by mouth daily Active dilTIAZem CD 240 mg 24 hr capsule Take 1 capsule (240 mg total) by mouth daily 3 Active aspirin 81 mg enteric coated tablet Take 1 tablet (81 mg total) by mouth daily Active tobramycin (TOBREX) 0.3 % ophthalmic solution Administer 1 drop into the right eye 4 (four) times a day 3 Active prednisoLONE acetate (PRED FORTE) 1 % ophthalmic suspension Administer 1 drop into the right eye 4 (four) times a day 3 Active fluticasone propionate (FLONASE) 50 mcg/actuation nasal spray Administer 1 spray into each nostril daily as needed for rhinitis or allergies Active atorvastatin (LIPITOR) 20 mg tablet Take 1 tablet (20 mg total) by mouth daily 90 tablet 3 4 Active gabapentin (NEURONTIN) 100 mg capsule Take 1 capsule (100 mg total) by mouth 3 (three) times a day 4 Active furosemide (LASIX) 20 mg tablet Take 1 tablet (20 mg total) by mouth 2 (two) times a day Active potassium chloride ER 10 mEq CR tablet Take 1 tablet/capsule (10 mEq total) by mouth daily Active oseltamivir (TAMIFLU) 75 mg capsule Take 1 capsule (75 mg total) by mouth 2 (two) times a day for 5 days 10 capsule 5 11/25/19 25 Active Active Problems Problem Noted Date Diagnosed Date Coronary artery disease of n ative artery of [place] heart with stable angina pectoris 10/31/2023 Assessment & Plan (06/18/2024 1:52 PM CDT): Stable. Continue aspirin and Lipitor. Assessment & Plan (10/31/2023 1:48 PM DIETARY AIDE TEACHER): Explained to the patient and family that by definition the presence of coronary artery calcification indicates the presence of coronary artery disease however her stress test would argue that her coronary disease is not severe. Therefore favor a secondary prevention with aspirin and statin. Encouraged her to start Lipitor as prescribed elsewhere. Continue aspirin. Continue diltiazem. Essential hypertension 10/31/2023 Assessment & Plan (06/18/2024 1:52 PM CDT): Well controlled. Continue diltiazem Assessment & Plan (10/31/2023 1:48 PM DIETARY AIDE TEACHER): Reasonably well controlled. Continue diltiazem. Trichiasis 10/10/2023 Acute chest pain 10/03/2023 Tinnitus of both ears 05/24/2019 Vitamin B12 deficiency 05/24/2019 Depression 01/01/2019 Dizziness and giddiness 01/01/2019 Gastroesophageal reflux disease 01/01/2019 Lipoma 01/01/2019 Mild intermittent asthma without complication Old tear of meniscus of left knee 01/01/2019 Osteopenia of multiple sites 01/01/2019 Primary osteoarthritis 01/01/2019 Screening for osteoporosis 01/01/2019 Allergic conjunctivitis 09/29/2018 Pinguecula 09/29/2018 Knee pain 11/16/2012 Plantar fascial fibromatosis 11/09/2012 Allergic rhinitis 05/12/2006 Shortness of breath Chronic obstructive pulmonary disease Encounters Date Type Department Care Team Description 11/20/2024 10:15 AM DIETARY AIDE TEACHER Office Visit [facility] [address] [address] Ana Herman NP Influenza A (Primary Dx) from Last 3 Months Immunizations Name Administration Dates Next Due Influenza, Quadrivalent, Hig h Dose, Preservative Free, Intrr 07/15/2018 Influenza, Quadrivalent, Spl it, Preservative Free, Intramuscular 07/14/2019 Influenza, Trivalent, High D ose, Split, Preservative Free, Intramuscular 06/22/2019,07/15/2018,07/06/2018,07/18 Influenza, Trivalent, IM (MDV) 09/02/2014 Influenza, Trivalent, Preser vative Free, Intramuscular 11/01/2013 Pneumococcal Conjugate PCV 13 07/14/2019, 019,07/18/2017 ZOSTER Recombinant 04/08/2019, 9,10/09/2018,08/13,07/07/2018,07/06/2018,06/13/2018 Surgical History Surgery Date Site/Laterality Comments HYSTERECTOMY 1998 Hysterectomy Medical History Medical History Date Comments Osteoarthritis Osteoarthritis Malignant neoplasm of female breast (HCC) Cancer, breast Family History Medical History Relation Name Comments Arthritis Father Cancer Father Diabetes Father Gout Father Hypertension Father Kidney disease Father Arthritis Mother Cancer Mother Hypertension Mother Mental illness Mother Asthma Other 1 Family history of Asthma; Breast cancer Other 2 Family history of Cancer, breast; COPD Other 3 Family history of COPD; Diabetes Other 4 Family history of Diabetes mellitus; Hypertension Other 5 Family history of Hypertension; Stroke Other 6 Family history of Stroke; Osteoarthritis Other 7 Family histor y of Osteoarthritis; Arthritis Sister Hypertension Sister Relation Name Status Comments Father Mother Other 1 Other 2 Other 3 Other 4 Other 5 Other 6 Other 7 Sister Social History Tobacco Use Types Packs/Day Years Used Date Smoking Tobacco: Never Smokeless Tobacco: Never Tobacco Cessation:Counseling Given: Not Answered Alcohol Use Standard Drinks/Week Comments Yes 0 (1 standard drink = 0.6 oz pur e alcohol) Personal Safety Answer Date Recorded Have you ever been in or are you currently in a harmful physical or emotional relationship or is someone making you feel afraid or unsafe? Denies 10/03/2023 Comments Unknown Sex and Gender Information Value Date Recorded Sex Assigned at Not on file Legal Sex Female 9:13 AM DIETARY AIDE TEACHER Gender Identity Female 03/19/2018 2:40 PM CDT Sexual Orientation Not on file Occupation Industry Job Start Date Job End Date Retired Not on file Not on file Not on file Obstetrics History Last Filed Vital Signs Vital Sign Reading Time Taken Comments Blood Pressure 134/64 11/20/2024 9:21 AM DIETARY AIDE TEACHER Pulse 72 11/20/2024 9:21 AM DIETARY AIDE TEACHER Temperature 38 C (100.4 F) 11/20/2024 9:21 AM DIETARY AIDE TEACHER Respiratory Rate 18 11/20/2024 9:21 AM DIETARY AIDE TEACHER Oxygen Saturation 96% 11/20/2024 9:21 AM DIETARY AIDE TEACHER Inhaled Oxygen Concentration - - Weight 66.7 kg (147 lb) 11/20/2024 9:21 AM DIETARY AIDE TEACHER Height 160 cm (5' 3 ) 11/20/2024 9:21 AM DIETARY AIDE TEACHER Body Mass Index 26.04 11/20/2024 9:21 AM DIETARY AIDE TEACHER Plan of Treatment Health Maintenance Due Date Last Done Comments Depression Screening 1944 DTaP/Tdap/Td Vaccine (1 - Tdap) 1955 Hepatitis B Screening 1962 Well Visit 65+ 2009 Osteoporosis Screening-Bone Density Scan 04/07/2019 04/07/2017, 04/30/2013 Pneumococcal vaccine 65+ (2 of 2 - PPSV23 or PCV20) 09/08/2019 07/14/2019, 06/22/2019, 07/18/2017 Influenza Vaccine (#1) 2024 9, 06/22/2019, 07/15/2018, Additional history exists Fall Risk Assessment 10/04/2024 10/04/2023 Zoster Vaccine Completed 04/08/2019, 03/0 02/2019, 10/09/2018, Additional history exists Procedures Procedure Name Priority Date/Time Associated Diagnosis Comments POC INFLUENZA A/B, COVID-19 ANTIGEN Routine 11/20/2024 9:30 AM DIETARY AIDE TEACHER Influenza A DEXA AXIAL SKELETON BONE DENSITY 1 OR MORE SITES Routine 04/07/2017 5:00 PM CDT from Last 3 Months or Most Recently Relevant to Health Maintenance Results * (ABNORMAL) POC Influenza A/B, COVID-19 antigen (11/20/2024 9:30 AM DIETARY AIDE TEACHER) Influenza A Ag, POC Positive(A) Negative [facility] Influenza B Ag, POC Negative Negative [facility] COVID-19 Ag POC Presumptive Negative Presumptive Negative, Invalid [facility] Nasal 11/20/2024 9:30 AM DIETARY AIDE TEACHER us Ana Herman NP POINT OF CARE TEST ORDERABLES F inal Result Performing Organization Address City/State/[facility] Co de Phone Number [facility] [address] [place] [address] * Dexa Axial Skeleton Bone Density 1 or 2 Site (04/07/2017 5:00 PM CDT) Anatomical Region Laterality Modality Body N/A Radiographic Rosalee ging 04/07/2017 5:00 PM CDT Narrative 04/07/2017 5:00 PM CDT DATE OF EXAM: Apr 07 2017 12:00PM Acc#: [id number] [facility] 0001 - DEXA Bone Density Axial DIAGNOSIS: ENCOUNTER FOR SCREENING FOR OSTEOPOROSIS CLINICAL HISTORY: OSTEOPOROSIS SCREENING RESULT: EXAM: Dexa bone densitometry DATE: 04/07/2017 12:00 PM CLINICAL HISTORY: Postmenopausal, osteopenia COMPARISON: 04/30/2013 TECHNIQUE: The T-score compares the patient's bone mineral density to peak bone mass of young normal adults. The more negative than number, the greater loss of bone. T-score % of Normal AP lumbar spine: -0.9 91 Total hip: -0.9 88 Femoral neck: -1.5 80 The T-score compares the patient's bone mineral density to peak bone mass of young normal adults. The more negative than number, the greater loss of bone. IMPRESSION: The results of this patient's bone mineral density test are abnormal. This assessment is based on comparison with the average value found in healthy young adults. In at least one area tested the bone loss was greater than 10%. The T score of the femoral neck is consistent with osteopenia. Bone mineral density of the AP lumbar spine has decreased 2.5% compared to the prior exam and decreased 8.3% compared to baseline. Bone mineral density of the total hip has decreased 7.5% compared to the prior exam and decreased 13.0% compared to baseline. TREATMENT RECOMMENDATIONS: The patient is not on a daily calcium supplement or an antiresorptive medicine. FOLLOW UP RECOMMENDATIONS: Follow-up exam in 2 years is recommended. Electronically signed by: Héctor Lockwood M.D. POULTRY HELPER: [employer] TRANSCRIBE DATE/TIME: Apr 07 2017 3:49P RADIOLOGIST: HÉCTOR LOCKWOOD M.D. READ ON: Apr 07 2017 3:53P ORDERING DR: CHUCK GARLAND M.D. THIS DOCUMENT HAS BEEN ELECTRONICALLY SIGNED BY: HÉCTOR LOCKWOOD M.D. ON: Apr 07 2017 3:49P Attending: CHUCK GARLAND Requesting: CHUCK GARLAND Requesting Attending Attending ID: [id number] Requesting ID: [id number] Report To 1 ID: Report To 1 Name: , Report To 1 FAX: -- Report To 2 ID: Report To 2 Name: , Report To 2 FAX: -- NextGen Order #: Procedure Note Miscellaneous, Not In File / Provider, MD Jasbir - 04/07/2017 DATE OF EXAM: Apr 07 2017 12:00PM Acc#: [id number] [facility] 0001 - DEXA Bone Density Axial DIAGNOSIS: ENCOUNTER FOR SCREENING FOR OSTEOPOROSIS CLINICAL HISTORY: OSTEOPOROSIS SCREENING RESULT: EXAM: Dexa bone densitometry DATE: 04/07/2017 12:00 PM CLINICAL HISTORY: Postmenopausal, osteopenia COMPARISON: 04/30/2013 TECHNIQUE: The T-score compares the patient's bone mineral density to peak bone mass of young normal adults. The more negative than number, the greater loss of bone. T-score % of Normal AP lumbar spine: -0.9 91 Total hip: -0.9 88 Femoral neck: -1.5 80 The T-score compares the patient's bone mineral density to peak bone mass of young normal adults. The more negative than number, the greater loss of bone. IMPRESSION: The results of this patient's bone mineral density test are abnormal. This assessment is based on comparison with the average value found in healthy young adults. In at least one area tested the bone loss was greater than 10%. The T score of the femoral neck is consistent with osteopenia. Bone mineral density of the AP lumbar spine has decreased 2.5% compared to the prior exam and decreased 8.3% compared to baseline. Bone mineral density of the total hip has decreased 7.5% compared to the prior exam and decreased 13.0% compared to baseline. TREATMENT RECOMMENDATIONS: The patient is not on a daily calcium supplement or an antiresorptive medicine. FOLLOW UP RECOMMENDATIONS: Follow-up exam in 2 years is recommended. Electronically signed by: Héctor Lockwood M.D. POULTRY HELPER: [employer] TRANSCRIBE DATE/TIME: Apr 07 2017 3:49P RADIOLOGIST: HÉCTOR LOCKWOOD M.D. READ ON: Apr 07 2017 3:53P ORDERING DR: CHUCK GARLAND M.D. THIS DOCUMENT HAS BEEN ELECTRONICALLY SIGNED BY: HÉCTOR LOCKWOOD M.D. ON: Apr 07 2017 3:49P Attending: CHUCK GARLAND Requesting: CHUCK GARLAND Requesting Attending Attending ID: [id number] Requesting ID: [id number] Report To 1 ID: Report To 1 Name: , Report To 1 FAX: -- Report To 2 ID: Report To 2 Name: , Report To 2 FAX: -- NextGen Order #: Chuck Garland MD IM DXA PROCEDURES Final Result from Last 3 Months or Most Recently Relevant to Health Maintenance Additional Health Concerns Infection Onset Date Last Indicated Influenza, adult 11/20/2024 11/20/2024 Insurance [facility] INSURANCE MEDICARE [facility] Address: [address] [address] [place] [address] MEDICARE COMMERCIAL GENERIC MEDICARE [facility] Address: [address] [address] [place] [address] Advance Directives For more information, please contact: [phone] * Full Code (Latest Code Status on File) Date Activated Date Inactivated Comments 10/03/2023 3:33 AM 10/04/2023 5:48 PM Care Teams Tester Waste Disposal Leakage Relationship Specialty Start Date End Date Faustino Kendrick MD [address] [facility] [address] [place] [address] PCP - General Internal Medicine 10/03/23 J Luis Loza MD [address] [facility] [address] [place] [address] Referring Physician Cardiology 10/04/23
--- OUTSIDE RECORDS SUMMARY | 2024-11-22 10:47 | XMS_ITS | Continuity of Care Document ---
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 Name Role Phone Peter Noguera MD Unavailable Unavailable Allergies, Adverse Reactions, Alerts Substance Reaction Status Criticality No Known Drug Allergies Active No I nformation Medications Medication Instructions Dosage Effective Dates (start - stop) Status Comments ESCITALOPRAM 10MG TABLETS TAKE 1 TABLET BY MOUTH EVERY DAY - Active Breo Ellipta 200 mcg-25 mcg/dose powder for inhalation inhale 1 puff by inhalation route every day at the same time each day 1.00 puff - Active omeprazole 20 mg capsule,delayed release take 1 capsule by oral route every day - Active Trelegy Ellipta 100 mcg-62.5 mcg-25 mcg powder for inhalation inhale 1 puff by inhalation route every day at the same time each day 1.00 puff - Active OCUVITE EYE PLUS MULTI (unknown strength) take 1 tablet daily Not Available - Active Vitamin D3 25 mcg (1,000 unit) tablet take 2 tablet by oral route every day - Active Calcium 600 mg calcium (1,500 mg) tablet take 1 tablet by oral route 2 times every day 1 tablet - Active alendronate 70 mg tablet take 1 tablet by oral route every week in the morning, at least 30 min before first food, beverage, or medication of day 70 MG - Active Procedures Procedure Date Percutaneous Vertebral Augme ntation- 1 Vertebral Boday, Incl Imaging, Thoracic Percutaneous Vertebral Augmentation- Eac h Addt'l Thor/lumbar SURGICAL TRAY LOW OSMOLAR CONTRAST (200 TO 299 MG IODI NE) KENALOG 10 MG ASP/INJ MAJOR JOINTOR BURSA, SHOULDER, H IP,KNEE W/O US GUIDANCE OFFICE [id number] X-RAY EXAM OF KNEE, A/P & LAT 2 SCREENING COLONOSCOPY ; HIGH RISK FALL RISK ASSESSMENT DOC'D PRES/ABSN URINE INCON ASSESS Pt inelig neg scrn depres CBC, INC PLATELETS AND DIFFERENTIAL COMPREHEN METABOLIC PANEL CMP 1 LIPID PANEL VITAMIN D, 25-HYDROXY ROUTINE VENIPUNCTURE PPPS, subseq visit SYST BP GE 130 - 139MM HG DIAST BP < 80 MM HG FALL PLAN OF CARE DOC'D URINE INCON PLAN DOC'D PRES/ABSN URINE INCON ASSESS Pt inelig neg scrn depres OFFICE [id number] SYST BP LT 130 MM HG DIAST BP < 80 MM HG FALL PLAN OF CARE DOC'D URINE INCON PLAN DOC'D PRES/ABSN URINE INCON ASSESS Pt inelig neg scrn depres CBC, INC PLATELETS AND DIFFERENTIAL COMPREHEN METABOLIC PANEL CMP 9 VITAMIN B12 (SERUM) VITAMIN D, 25-HYDROXY ROUTINE VENIPUNCTURE OFFICE [id number] SYST BP LT 130 MM HG DIAST BP 80-89 MM HG FALL PLAN OF CARE DOC'D URINE INCON PLAN DOC'D PRES/ABSN URINE INCON ASSESS Pt inelig neg scrn depres OFFICE [id number] SYST BP LT 130 MM HG DIAST BP < 80 MM HG Advance Directives Directive Yes / No Effective Date File Name No Information Encounters Encounter Description Practice Location Reason(s) For Visit Diagnoses Date Provider Providers Copied on Encounter [facility], [address], [place], [place], [address] , [place] tel:[phone] [facility] No Information 5 Chuckie Green. [address], [place], [place], [address], [place]. [phone] Referring Provider: Hermilo Martínez, [address], [place], [address]. tel:[phone] OFFICE BRNDL-YSH-ZT [facility] Deangelo Rivas, [address], [place], [place], [address] , [place] tel: [phone] [facility] knee (chief complaint) Primary osteoarthritis of right knee 2 Kenya Carpio. [address], [facility] [address], [place], [place], [address], [place]. [phone] Referring Provider: Shirin Zambrano, [address] [facility] [address], [place], [address] . tel:[phone] [facility] [facility], [address], [place], [place], [address] , [place] tel: [phone] [facility] No Information 2 Jose Green. [address] [place] [address], [address] , [place], [place], [address], [place]. tel:[phone] [facility], [address], [place], [place], [address] , [place] tel:[phone] [facility] Shortness of breath 2 Jose Green. [address] [place] [address], [address], [place], [place], [address], [place]. [phone] [facility], [address], [place], [place], [address] , [place] tel:[phone] [facility] No Information [address]. [address] [facility], [address], [place], [place], [address], . tel:[phone] Referring Provider: Cristin Messer, [address] [place] [address] [address], [place], [address] . tel:[phone] [facility], [address], [place], [place], [address] , tel: [phone] [facility] Medicare preventive (chief complaint)b ack pain (chief complaint)C hronic Conditions (chief complaint) Body mass index (BMI) 26.0-26.9, adultMedicare annual wellness visit, subsequentGastro esophageal reflux disease without esophagitisRecur rent major depressive disorder, remission status unspecifiedPrima ry osteoarthritis involving multiple jointsOsteopenia of multiple sitesVitamin D deficiencyAcute bilateral low back pain without sciaticaAcute bilateral thoracic back pain 1 Gui Amaral. [address] [place] [address], [address] , [place], [place], [address], . [phone] Referring Provider: Peter Garcia, [address] [place] [address] [address] , [place], [address] . tel:[phone] [facility], [address], [place], [place], [address] , tel:[phone] [facility] COVID-19 virus IgG antibody test result unknown 1 Jose Green. [address] [place] [address], [address] , [place], [place], [address], . tel:[phone] OFFICE LRWSN-MVG-PW PANDED [facility], [address], [place], [place], [address] , tel: [phone] [facility] stuffy head, nasal agusto/ ears stuffy (chief complaint) Body mass index (BMI) 25.0-25.9, adultUpper respiratory tract infection, unspecified type 0 Gui Amaral. [address] [place] [address], [address] , [place], [place], [address], . [phone] Referring Provider: Peter Garcia [address] [place] [address] [address], [place], [address] . tel:[phone] OFFICE DOUYF-PEB-BI TAILED [facility], [address], [place], [place], [address] , tel: [phone] [facility] vertigo (chief complaint)C hronic Conditions (chief complaint) Body mass index (BMI) 26.0-26.9, adultVertigoOste openia of multiple sitesPrimary osteoarthritis involving multiple jointsGastroesop hageal reflux disease without esophagitisTinni tus of both earsRecurrent major depressive disorder, in partial remission 9 Gui Amaral. [address] [place] [address], [address], [place], [place], [address], . tel:[phone] Referring Provider: Peter Garcia, [address] [place] [address] [address], [place], [address] . tel:[phone] OFFICE IAQXV-FCA-FH PANDED [facility], [address], [place], [place], [address] , tel: [phone] [facility] left ankle pain (chief complaint) Body mass index (BMI) 27.0-27.9, adultAcute left ankle pain Gui Amaral. [address] [place] [address], [address], [place], [place], [address], . tel:[phone] Referring Provider: Peter Garcia [address] [place] [address] [address], [place], [address] . tel:[phone] [facility], [address], [place], [place], [address] , tel: [phone] [facility] Elevated blood pressure readingWeight gainDyspnea on exertionGastroes ophageal reflux disease, esophagitis presence not specifiedDepress ion, unspecified depression typeEncounter for immunization 8 Jose Green. [address] [place] [address], [address], [place], [place], [address], . tel:[phone] Referring Provider: Peter Garcia [address] [place] [address] [address], [place], [address] . tel:[phone] [facility], [address], [place], [address] , [place] tel: [phone] [facility] Left ankle swellingPrimary osteoarthritis, unspecified siteMild episode of recurrent major depressive disorderGastroes ophageal reflux disease, esophagitis presence not specifiedScreeni ng for osteoporosis 7 Gui Amaral. [address] [facility], [address], [place], [place], [address], [place]. tel:[phone] Referring Provider: Peter Garcia, [address] [facility] [address], [place], [address] . tel:[phone] [facility], [address], [place], [place], [address] , [place] tel: [phone] [facility] S/P left knee arthroscopy [facility]. [address], [place], [place], [address], [place]. tel:[phone] Referring Provider: Shirin Zambrano, [address], [place], [address] . tel:[phone] [facility], [address], [place], [address] , [place] tel: [phone] [facility] S/P left knee arthroscopy 6 [facility]. [address], [address], [place], [place], [address], [place]. tel:[phone] Referring Provider: Shirin Zambrano, [address], [place], [address] . tel:[phone] [facility], [address], [place], [place], [address] , [place] tel: [phone] [facility] Chronic meniscal tear of knee, left Dec-3 - [facility]. [address], [address], [place], [place], [address], . tel:[phone] Referring Provider: Shirin Zambrano, [address], [place], [address] . tel:[phone] [facility] [facility], [address], [place], [place], [address] , [place] tel: [phone] [facility] Left knee pain, unspecified chronicity 6 [facility]. [address], [address], [place], [place], [address], [place]. tel: [phone] Referring Provider: Shirin Zambrano, [address], [place], [address] . tel:[phone] [employer] [facility] [facility], [address], [place], [place], [address] , [place] tel: [phone] [facility] OsteoarthritisDe pressionEsophage al refluxDizzinessH yperlipidemia 5 Gui Amaral. [address] [place] [address], [address], [place], [place], [address], . tel:[phone] Referring Provider: Peter Garcia, [address] [place] [address] [address], [place], [address] . tel:[phone] [employer] [facility] [facility], [address], [place], [address] , [place] tel: [phone] [facility] No Information 4 Jose Green. [address] [place] [address], [address], [place], [place], [address], . tel:[phone] Referring Provider: Peter Garcia, [address] [place] [address] [address], [place], [address] . tel:[phone] [employer] [facility] [facility], [address], [place], [place], [address] , tel: [phone] [facility] Esophageal refluxOsteoarthr itisLipomaDepres ari 4 Jose Green. [address] [place] [address], [address], [place], [place], [address], . tel:[phone] Referring Provider: Peter Garcia, [address] [place] [address] [address], [place], [address] . tel:[phone] [facility] [facility], [address], [place], [place], [address] , tel: [phone] [facility] No Information 4 Jose Green. [address] [place] [address], [address], [place], [place], [address], . tel:[phone] [facility], [address], [place], [address] , [place] tel: [phone] [facility] Esophageal reflux 3 Jose Green. [address] [place] [address], [address], [place], [place], [address], . tel:[phone] [facility], [address], [place], [place], [address] , tel: [phone] [facility] Plantar fascial fibromatosisDepr essionScreening for diabetes mellitusScreenin g for lipoid disordersChest wall discomfort 3 Lwa Henderson. [address] [place] [address], [address], [place], [place], [address]. tel:[phone] Referring Provider: Peter Garcia, [address] [place] [address] [address], [place], [address] . tel:[phone] [facility] [facility], [address], [place], [place], [address] , [place] tel: [phone] [facility] Depressive disorder, not elsewhere classified 2 Jose Green. [address] [place] [address], [address], [place], [place], [address], . tel:[phone] [facility], [address], [place], [address] , [place] tel: [phone] [facility] JOINT PAIN-L/LEGSCREEN LIPOID DISORDERSMALAISE AND FATIGUE NEC 0 Jose Green. [address] [place] [address], [address], [place], [place], [address], . tel:[phone] [facility], [address], [place], [place], [address] , [place] tel: [phone] [facility] ALLERGIC RHINITIS NOSLONG-TERM USE MEDS NEC 7-201 0 [facility]. [address], [place], [address], [place]. [facility], [address], [place], [place], [address] , tel: [phone] [facility] DEPRESSIVE DISORDER NEC 1-200 7 [facility]. [address] [place], [address], . [facility] [facility], [address], [place], [place], [address] , tel: [phone] [facility] ACUTE URI NOS 6-200 6 Con[facility]. [facility] [place], [address], [place]. [facility], [address], [place], [place], [address] , tel: [phone] [facility] ESOPHAGEAL REFLUXDERMATITIS NOSSYMPT FEM CLIMACT STATE 200 4 Jose Green. [address] [facility], [address], [place], [place], [address], [place]. tel:[phone] Family History Family Member Type Diagnosis Age At Onset Mother Problem (finding) malignant neop lasm of breast in first degree relative Father Problem (finding) hypertension Mother Problem (finding) osteoporosis Father Problem (finding) diabetes melli tus in first degree relative Immunizations Vaccine Date Status Comments Moderna COVID19 Vaccine, 0.5 mL per dose, 2 doses, administered 28 days apart administered Source: Source Unspe cified Fluzone High-Dose, high dose , preservative free administered Source: Source Unspe cified Pneumococcal polysaccharide PPV23 administered Source: Other Provid er Pneumococcal conjugate PCV 13 administere d Source: Other Provider Fluzone Quad, preservative free, split virus, 0.5mL dosage administered Source: Other Provider SHINGRIX (Zoster vaccine recombinant, adjuvanted) administered Source: Other P rovider SHINGRIX (Zoster vaccine recombinant, adjuvanted) administered Source: Other P rovider SHINGRIX (Zoster vaccine recombinant, adjuvanted) administered Source: Source Unspecified Fluzone High-Dose, high dose , preservative free administered Source: Source Unspe cified SHINGRIX (Zoster vaccine recombinant, adjuvanted) administered Source: Source Unspecified Influenza, seasonal, injecta ble (3 yrs or older) administered Source: New Immuniza tion Record Payers Payer name Insurance type Covered constitution party ID Authoriza tion(s) [facility] [id number] MEDICARE MB [id number] [employer] CI [id number] Social History Type Description Quantity Date Captured Comments Sex Female Smoking Status No Information Sexual Orientation Straight or heterosexual Gender Identity Female Chief Complaint And Reason For Visit No Information Reason For Referral Reason For Referral No Information Plan Of Treatment Date Type Action Status Goal Dietary manageme nt education, guidance, and counseling completed Goal Tobacco cessation counseling completed Goal Tobacco cessation counseling completed Goal Dietary manageme nt education, guidance, and counseling completed Goal Tobacco cessation counseling completed Goal Dietary manageme nt education, guidance, and counseling completed Goal Dietary manageme nt education, guidance, and counseling completed Goal Tobacco cessation counseling completed Referral Ordered: X-RAY EXAM OF KNEE, ONE OR TWO VIEWS Right Right ordered Referral Ordered: XR chest, AP and lateral views ordered Referral Referred To: [address] [place] [address], [id number] Ordered: X-RAY EXAM OF THORACIC SPINE, A/P AND LAT ordered Referral Referred To: [address] [place] [address], [id number] Ordered: X-RAY EXAM OF LUMBAR SPINE, A/P & LAT ordered Patient Education [place]orne Exercises for Vertigo: Care~ completed Patient Education Benign Paroxysmal Posit ional Vertigo ~ completed History Of Present Illness Encounter Date Complaint History Of Prese nt Illness knee hx right knee sc ope 2016 and here with recent intermittent aching of right knee with walking and about to take trips to [place] and [place] xrys mild med djd righ tknee plan inj given right knee fu as needed Chronic Conditions *See Chronic Conditions HPI back pain The symptoms beg an on 05/20/2021. She states the symptoms are acute and are of new onset. She denies any injury. States she woke up with back pain on morning of 05/20/2021. She states she has used Tylenol ES for pain, has to sleep in recliner, as bed is painful. She notes she does have a little relief when she is in warm shower. Medicare preventive The patient has not felt depressed and has had interest and pleasure doing things recently. Functional Status: (Functional status has not changed) on 05/24/2021. SLUMS assessment completed, with a total score of 30, Normal. Cognitive Status: (Cognitive status has not changed) on 05/24/2021. The ''Up and Go'' test took less than 30 seconds and the patient does not need help with activities of daily living. The patient is not at risk for falls. The patient has not fallen in the last year. The fall(s) did not result in injury. Patient's activity level is moderate. Patient exercises 3-4 times/week. The patient has smoke detectors, carbon monoxide detectors, gas heating in the home. The patient does not have firearms in the home. Patient's home has not been tested for radon. Patient reports using a seatbelt in vehicles. Patient reports a regular diet. Patient reports recent weight gain of 4 lbs, 1.82 kgs over 19 Months. Patient reports getting 250 mg/day calcium from dietary sources. Patient reports taking a vitamin D supplement. Patient is getting adequate sunlight exposure. Patient reports taking a multivitamin daily. Patient does not take folic acid. Relevant history is positive for alcohol use. Relevant history is negative for passive vaping exposure and passive smoke exposure. Patient is a former tobacco user. In the past year the patient has had 4 or more drinks in a day 0 time(s). Screening services were reviewed and updated. stuffy head, nasal c karlie/ ears stuffy The symptoms began 2 weeks ago. She states the symptoms are acute and have improved. She notes she got sick while on a cruise about 2 weeks ago. She had rx for augmentin which she completed today and symptoms are improved but 'not gone yet'. She states she has continued zytrec and sudafed and mucinex. She states she continues to feel fatigued, ears are stopped up. She notes she is leaving in a few days for 10 days in [place]. Chronic Conditions *See Chronic Conditions HPI vertigo The symptoms beg an 3 weeks ago. The symptoms are reported as being mild. She states the symptoms are acute and have improved. She states she noticed about 3 weeks ago that she had feeling of room spinning and feeling off balance. She notes she had similar episode about a year ago which lasted longer and was more severe. She states then she couldn't get out of bed and had nausea as well. She saw ENT at that time. She has not used meclizine with this episode She notes she has to sleep with head of bed up 45 degrees. She states she has not fallen and always makes position changes slowly. left ankle pain The symptoms beg an on 06/16/2019. She states the symptoms are acute and are unchanged. She notes she was on a trip and noticed that her left ankle was hurting. She states it has been on a trip with a lot of walking with her sister and brother in law. Did not fall or stumble. No calf pain is noted. She states she has been using ibuprofen 200 mg every 4-6 hours. She notes her ankle is swollen, no redness, no warmth to touch. Functional Status Date Functional Assessmen t No Information Instructions Date Instruction Additional Infor marjan mild med djd right k nee plan inj given right knee fu as needed Related to Primary osteoarthritis of right knee Disease process She is here today fo r a Medicare preventive exam. She notes she had Moderna vaccine yesterday and does not feel great today. She is , no longer smokes, drinks alcohol daily. She notes she is planning trip to [place] with family in few days. She states she has mammograms yearly. will have again in 2020. she continues to live on her own, denies difficulty with ADLs. She has good support from family and friends. Related to Medicare annual wellness visit, subsequent She denies any injur y. States she woke up with back pain on morning of 05/20/2021. She states she has used Tylenol ES for pain, has to sleep in recliner, as bed is painful. She notes she does have a little relief when she is in warm shower. Related to Acute bilateral thoracic back pain She denies any injur y. States she woke up with back pain on morning of 05/20/2021. She states she has used Tylenol ES for pain, has to sleep in recliner, as bed is painful. She notes she does have a little relief when she is in warm shower. Related to Acute bilateral low back pain without sciatica Labs are drawn for f ollow up of chronic conditions Related to Vitamin D deficiency Continue present plan of care, R elated to Osteopenia of multiple sites Continue present plan of care Re lated to Primary osteoarthritis involving multiple joints Status: Able to self -manage condition. Goals: Your goal is to manage stress. No barriers to goal achievement have been identified. Related to Recurrent major depressive disorder, remission status unspecified Continue present dony n of care, watching for diet and lifestyle triggers to avoid. Related to Gastroesophageal reflux disease without esophagitis Urinary Incontinence Disease process Fall Risk Prevention Dietary management e ducation, guidance, and counseling Related to Body mass index (BMI) 26.0-26.9, adult Counseled on dietary changes She notes she got si ck while on a cruise about 2 weeks ago. She had rx for augmentin which she completed today and symptoms are improved but 'not gone yet'. She states she has continued zytrec and sudafed and mucinex. She states she continues to feel fatigued, ears are stopped up. She notes she is leaving in a few days for 10 days in [place]. Related to Upper respiratory tract infection, unspecified type Urinary Incontinence Disease process Fall Risk Prevention Prescribed activity/ exercise education Related to Body mass index (BMI) 25.0-25.9, adult Dietary management e ducation, guidance, and counseling Related to Body mass index (BMI) 25.0-25.9, adult She states she notic ed about 3 weeks ago that she had feeling of room spinning and feeling off balance. She notes she had similar episode about a year ago which lasted longer and was more severe. She states then she couldn't get out of bed and had nausea as well. She saw ENT at that time. She has not used meclizine with this episode She notes she has to sleep with head of bed up 45 degrees. She states she has not fallen and always makes position changes slowly. Related to Vertigo Status: Able to self -manage condition. Goals: Your goal is to manage stress. No barriers to goal achievement have been identified. Related to Recurrent major depressive disorder, in partial remission Continue present plan of care. R elated to Primary osteoarthritis involving multiple joints Will continue to monitor. Relate d to Tinnitus of both ears Continue present plan of care. R elated to Gastroesophageal reflux disease without esophagitis Will check labs toda y- last with Dr Thomas were 'about a year' ago. Related to Osteopenia of multiple sites Disease process Dietary management e ducation, guidance, and counseling Related to Body mass index (BMI) 26.0-26.9, adult Prescribed activity/ exercise education Related to Body mass index (BMI) 26.0-26.9, adult She notes she was on a trip and noticed that her left ankle was hurting. She states it has been on a trip with a lot of walking with her sister and brother in law. Did not fall or stumble. No calf pain is noted. She states she has been using ibuprofen 200 mg every 4-6 hours. She notes her ankle is swollen, no redness, no warmth to touch. Related to Acute left ankle pain Disease process Prescribed activity/ exercise education Related to Body mass index (BMI) 27.0-27.9, adult Dietary management e ducation, guidance, and counseling Related to Body mass index (BMI) 27.0-27.9, adult Assessments Type Assessment Date No Information Patient Care Teams Name Effective Dates (start - stop) Status Members No Information
--- OUTSIDE RECORDS SUMMARY | 2024-11-22 10:47 | XMS_ITS | Referral Summary ---
Author Organization [facility] Address [address] [place] [address] Care Team Providers Care Dipper And Drier Name Role Phone Faustino Kendrick MD Primary Care Provider [phone] J Luis Loza MD Unavailable Encounters Date Type Department Care Team Description 11/20/2024 10:15 AM PR SPECIALIST Office Visit [facility] at [address] [address] Ana Herman NP Influenza A (Primary Dx) from Last 3 Months Allergies No known active allergies Medications cholecalciferol (VITAMIN D3) 2,000 unit capsule Take 1 capsule (2,000 Units total) by mouth daily Active calcium-vits O1-C-A0-mineral s 166.75 mg- 166.75 unit capsule Take 1 capsule by mouth daily Active escitalopram (LEXAPRO) 10 mg tablet Take 1 tablet (10 mg total) by mouth daily 9 Active fluticasone-ume clidin-vilanter (Trelegy Ellipta) 100-62.5-25 mcg inhaler Inhale 1 puff daily Active qb-ci-MY-vit C-tfjsv-oobk-ze ax (Ocuvite Eye Plus Multi) 200-15-150 mcg [...] artery disease of n ative artery of [place] heart with stable angina pectoris 10/31/2023 Assessment & Plan (06/18/2024 1:52 PM CDT): Stable. Continue aspirin and Lipitor. Assessment & Plan (10/31/2023 1:48 PM PR SPECIALIST): Explained to the patient and family that [...] diltiazem Assessment & Plan (10/31/2023 1:48 PM PR SPECIALIST): Reasonably well controlled. Continue diltiazem. Trichiasis 10/10/2023 [...] Shortness of breath Chronic obstructive pulmonary disease Immunizations Name Administration Dates Next Due Influenza, Quadrivalent, Hig h Dose, Preservative Free, Intrr 07/15/2018 Influenza, Quadrivalent, Spl it, Preservative Free, Intramuscular 07/14/2019 Influenza, Trivalent, High D ose, Split, Preservative Free, Intramuscular 06/22/2019,07/15/2018,07/06/2018,07/18 Influenza, Trivalent, IM (MDV) 09/02/2014 Influenza, Trivalent, Preser vative Free, Intramuscular 11/01/2013 Pneumococcal Conjugate PCV 13 07/14/2019, 019,07/18/2017 ZOSTER Recombinant 04/08/2019, 9,10/09/2018,08/13,07/07/2018,07/06/2018,06/13/2018 Social History Tobacco Use Types Packs/Day Years [...] on file Legal Sex Female 9:13 AM PR SPECIALIST Gender Identity Female 03/19/2018 2:40 PM CDT Sexual Orientation Not on file Occupation Industry Job Start Date Job End Date Retired Not on file Not on file Not on file Last Filed Vital Signs Vital Sign Reading Time Taken Comments Blood Pressure 134/64 11/20/2024 9:21 AM PR SPECIALIST Pulse 72 11/20/2024 9:21 AM PR SPECIALIST Temperature 38 C (100.4 F) 11/20/2024 9:21 AM PR SPECIALIST Respiratory Rate 18 11/20/2024 9:21 AM PR SPECIALIST Oxygen Saturation 96% 11/20/2024 9:21 AM PR SPECIALIST Inhaled Oxygen Concentration - - Weight 66.7 kg (147 lb) 11/20/2024 9:21 AM PR SPECIALIST Height 160 cm (5' 3 ) 11/20/2024 9:21 AM PR SPECIALIST Body Mass Index 26.04 11/20/2024 9:21 AM PR SPECIALIST Plan of Treatment Not on file Procedures Procedure Name Priority Date/Time Associated Diagnosis Comments POC INFLUENZA A/B, COVID-19 ANTIGEN Routine 11/20/2024 9:30 AM PR SPECIALIST Influenza A DEXA AXIAL SKELETON BONE DENSITY 1 OR MORE SITES Routine 04/07/2017 5:00 PM CDT from Last 3 Months or Most Recently Relevant to Health Maintenance Results * (ABNORMAL) POC Influenza A/B, COVID-19 antigen (11/20/2024 9:30 AM PR SPECIALIST) Influenza A Ag, POC Positive(A) Negative [facility] Influenza B Ag, POC Negative Negative [facility] COVID-19 Ag POC Presumptive Negative Presumptive Negative, Invalid [facility] Nasal 11/20/2024 9:30 AM PR SPECIALIST Ana Herman NP POINT OF CARE TEST ORDERABLES F inal Result [facility] [address] [place] [address] * Dexa Axial Skeleton Bone Density 1 or 2 Site (04/07/2017 5:00 PM CDT) Anatomical Region Laterality Modality Body N/A Radiographic Rosalee ging 04/07/2017 5:00 PM CDT Narrative 04/07/2017 5:00 PM CDT DATE OF EXAM: Apr 07 2017 12:00PM Acc#: [id number] [facility] 0001 - DEXA Bone Density Axial DIAGNOSIS: [...] recommended. Electronically signed by: Héctor Lockwood M.D. LENS AND FRAMES PRESCRIPTION CLERK: PSC TRANSCRIBE DATE/TIME: Apr 07 2017 3:49P RADIOLOGIST: HÉCTOR LOCKWOOD M.D. READ ON: Apr 07 2017 3:53P ORDERING DR: CHUCK GARLAND M.D. THIS DOCUMENT HAS BEEN ELECTRONICALLY SIGNED BY: HÉCTOR LOCKWOOD M.D. ON: Apr 07 2017 3:49P Attending: CHUCK GARLAND Requesting: CHUCK GARLAND Requesting Attending Attending ID: [id number] Requesting ID: [id number] Report To 1 ID: Report To 1 Name: , Report To 1 FAX: -- Report To 2 ID: Report To 2 Name: , Report To 2 FAX: -- NextGen Order #: Procedure Note Miscellaneous, Not In File / Provider, MD Jasbir - 04/07/2017 DATE OF EXAM: Apr 07 2017 12:00PM Acc#: [id number] [facility] 0001 - DEXA Bone Density Axial DIAGNOSIS: [...] recommended. Electronically signed by: Héctor Lockwood M.D. LENS AND FRAMES PRESCRIPTION CLERK: PSC TRANSCRIBE DATE/TIME: Apr 07 2017 3:49P RADIOLOGIST: HÉCTOR LOCKWOOD M.D. READ ON: Apr 07 2017 3:53P ORDERING DR: CHUCK GARLAND M.D. THIS DOCUMENT HAS BEEN ELECTRONICALLY SIGNED BY: HÉCTOR LOCKWOOD M.D. ON: Apr 07 2017 3:49P Attending: CHUCK GARLAND Requesting: CHUCK GARLAND Requesting Attending Attending ID: [id number] Requesting ID: [id number] Report To 1 ID: Report To 1 Name: , Report To 1 FAX: -- Report To 2 ID: Report To 2 Name: , Report To 2 FAX: -- NextGen Order #: Chuck Garland MD IMG DXA PROCEDURES Final Result from Last 3 Months or Most Recently Relevant to Health Maintenance Additional Health Concerns Infection Onset Date Last Indicated Influenza, adult 11/20/2024 11/20/2024 Insurance [facility] INSURANCE MEDICARE SOLUTIONS MEDICARE COMMERCIAL GENERIC MEDICARE SOLUTIONS Advance Directives For more information, please contact: [phone] * Full Code (Latest Code Status on File) Date Activated Date Inactivated Comments 10/03/2023 3:33 AM 10/04/2023 5:48 PM Care Teams Dipper And Drier Relationship Specialty Start Date End Date Faustino Kendrick MD [address] [facility] [address] INTERNAL MEDICINE [place] [address] [place] [id number] PCP - General Internal Medicine 10/03/23 J Luis Loza MD [address] [place] [address] INTERNAL MEDICINE [facility] [address] [place] [address] Referring Physician Cardiology 10/04/23
--- OUTSIDE RECORDS SUMMARY | 2024-11-22 10:47 | XMS_ITS | Patient Health Summary ---
Author Organization [facility] Address [address] [place] [place] [address] Care Team Providers Care Clinical Abstractor Name Role Phone Sg Chung MD Unavailable [phone] Shirin Zambrano MD Unavailable [phone] Peter Garcia MD Primary Care Provider [phone] Note from [facility],non-owned Affiliates and Associated Physician Practices is amultiple site organization consisting of ambulatory clinics and hospital sitesin [place], [place], [place] and [place]. This disclosure is being madepursuant to the Care Everywhere program and may not contain all information available regarding this patient. Last updated 18.[facility] Allergies No known active allergies Medications * Be aware that medications may not be up to date on this document. Alwaysverify current medications with the patient. * Cholecalciferol (VITAMIN D PO) Take 1 tablet by mouth once daily * VENTOLIN HFA 108 (90 BASE) MCG/ACT inhaler(Started 11/26/2018) Inhale 2 puffs by mouth once daily * meclizine (ANTIVERT) 25 MG tablet(Started 10/12/2018) Take 1 tablet by mouth every 8 hours as needed * multivitamin (OCUVITE PRESERVISION) TABS tablet Take 1 tablet by mouth once daily * calcium 600 MG tablet Take 1 tablet by mouth daily with food * escitalopram (LEXAPRO) 10 MG tablet(Started 05/24/2019) Take 1 tablet by mouth at bedtime 3 refills remaining * Fluticasone Furoate-Vilanterol (BREO ELLIPTA IN) * Cyanocobalamin (B-12) 500 MCG Dissolve 500 mcg under the tongue * omeprazole (PRILOSEC) 20 MG capsule(Started 10/16/2020) Take 1 capsule by mouth once daily 3 refills by 10/16/2021 Active Problems Problem Noted Date Diagnosed Date Tinnitus of both ears 05/24/2019 Vitamin B12 deficiency 05/24/2019 Old tear of meniscus of left knee 01/01/2019 Depression 01/01/2019 Dizziness and giddiness 01/01/2019 Gastroesophageal reflux disease 01/01/2019 Other and unspecified hyperlipidemia 01/01/2019 Lipoma 01/01/2019 Primary osteoarthritis 01/01/2019 Screening for osteoporosis 01/01/2019 Osteopenia of multiple sites 01/01/2019 Mild intermittent asthma without complication Left knee pain 11/16/2012 Plantar fascial fibromatosis 11/09/2012 Allergic rhinitis 05/12/2006 Contact dermatitis and other eczema 07/31/2004 Resolved Problems Problem Noted Date Diagnosed Date Resolved Date Painful respiration 01/01/2019 01/02/20 19 Dyspnea on exertion 01/01/2019 03/20/20 20 Elevated blood pressure reading 01/01/2019 01/01/2019 Encounter for immunization 01/01/2019 0 01/01/2019 Left ankle swelling 01/01/2019 05/24/20 19 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 01/01/2019 03/20/2020 Osteoarthrosis 01/01/2019 05/24/2019 Other specified postprocedural states 01/01/2019 01/01/2019 Screening for diabetes mellitus 01/01/2019 01/01/2019 Weight gain 01/01/2019 05/24/2019 Pain in joint, lower leg 03/19/2010 Encounter for long-term (cur rent) use of other medications 03/19/2010 01/01/2019 Other malaise and fatigue 03/19/2010 Screening for lipoid disorders 03/19/2010 01/01/2019 Other depressive disorder 04/22/2007 Acute upper respiratory infection 12/16/2005 01/01/2019 Esophageal reflux 07/31/2004 01/01/2019 Symptomatic menopausal or fe male climacteric states 07/31/2004 01/01/2019 Immunizations * INFLUENZA VACCINE, TRIV. (AFLURIA, FLUZONE TRIVALENT; 6MO+) (IIV3)(Given 09/02/2014) * INFLUENZA VACCINE, HIGH-DOSE, QUADR. (FLUZONE HIGH-DOSE QUADRIVALENT; 65Y+), 0.7 ML (HD-IIV4)(Given 07/15/2018) Social History Tobacco Use Types Packs/Day Years Used Date Smoking Tobacco: Former Cigarettes Q uit: 1966 Smokeless Tobacco: Never Alcohol Use Standard Drinks/Week Comments Yes 0 (1 standard drink = 0.6 oz pur e alcohol) occasional Sex and Gender Information Value Date Recorded Sex Assigned at Not on file Gender Identity Not on file Sexual Orientation Not on file Last Filed Vital Signs Vital Sign Reading Time Taken Comments Blood Pressure 115/77 03/20/2020 3:20 PM CDT Pulse 77 03/20/2020 3:20 PM CDT Temperature 36.3 C (97.3 F) 03/20/2020 3:20 PM CDT Respiratory Rate 16 03/20/2020 3:20 PM CDT Oxygen Saturation 97% 03/20/2020 3:20 PM CDT Inhaled Oxygen Concentration - - Weight 68.4 kg (150 lb 12.8 oz) 03/20/2020 3:20 PM CDT Height 160 cm (5' 3 ) 05/24/2019 3:25 PM CDT Body Mass Index 26.71 05/24/2019 3:25 PM CDT Procedures * VITAMIN B12(Performed 01/08/2019) * TSH(Performed 01/08/2019) * CBC W AUTO DIFFERENTIAL(Performed 01/08/2019) * COMPREHENSIVE METABOLIC PANEL(Performed 01/08/2019) * [place] CHMSRG MOHS MG TQ H/N/H/F/G 1ST STAG 5 BLOC(Performed 09/09/2018) Performed for Basal cell carcinoma of nose * [place] INTMD WND REPAIR FACE,FACIAL <2.5CM(Performed 09/09/2018) Performed for Basal cell carcinoma of nose * DERMATOPATHOLOGY(Performed 02/17/2017) * ARTHROSCOPY KNEE(Performed 02/02/2016) * XR KNEE RIGHT 2VW OR LESS(Performed 12/23/2014) Performed for Knee pain, right * DERMATOPATHOLOGY(Performed 05/03/2014) * XR KNEE LEFT 2VW OR LESS(Performed 11/16/2012) Performed for Knee pain Results * (ABNORMAL) CBC WITH DIFFERENTIAL (01/08/2019 7:55 AM CDT) White Blood Cell Count 3.7(L) 3.8 - 10.8 Thousand/u L [facility] RBC 4.47 3.80 - 5.10 Million/uL [facility] Hemoglobin 13.7 11.7 - 15.5 g/dL [facility] Hematocrit 41.0 35.0 - 45.0 % [facility] MCV 91.7 80.0 - 100.0 fL [facility] MCH 30.6 27.0 - 33.0 pg [facility] MCHC 33.4 32.0 - 36.0 g/dL [facility] RDW 12.8 11.0 - 15.0 % [facility] Platelet Count 319 140 - 400 Thousand/u L [facility] MPV 9.3 7.5 - 12.5 fL [facility] Neutrophil Absolute 2261 1500 - 7800 cells/uL [facility] Lymphocytes Absolute 855 850 - 3900 cells/uL [facility] Absolute Monocytes 403 200 - 950 cells/uL [facility] Eosinophils Absolute 130 15 - 500 cells/uL [facility] Basophils Absolute 52 0 - 200 cells/uL [facility] Granulocytes % 61.1 % [facility] Lymphocytes % 23.1 % [facility] Monocytes % 10.9 % [facility] Eosinophils % 3.5 % [facility] Basophils % 1.4 % [facility] Comment: Test Performed at: [facility] [address] [place] [address] GIOVANI EVANS DO,MPH 01/08/2019 7:55 AM CDT 01/08/2019 7:56 AM CDT Tonya Thomas MD LAB - HEMATOLOGY ORD ERABLES [facility] [address] [place] [address] * COMPREHENSIVE METABOLIC PANEL (01/08/2019 7:55 AM CDT) Pathologist [facility] Glucose 95 65 - 99 mg/dL [facility] Comment: Fasting reference interval BUN 11 7 - 25 mg/dL [facility] Creatinine 0.71 0.60 - 0.93 mg/dL [facility] Comment: For patients >49 years of age, the reference limit for Creatinine is approximately 13% higher for people identified as -Grenadian. eGFR by MDRD 84 > OR = 60 mL/min/1 .73m2 [facility] eGFR by MDRD 97 > OR = 60 mL/min/1 .73m2 [facility] BUN/Creatinine Ratio NOT APPLICABLE 6 - 22 (calc) [facility] Sodium 141 135 - 146 mmol/L [facility] Potassium 4.2 3.5 - 5.3 mmol/L [facility] Chloride 103 98 - 110 mmol/L [facility] CO2 28 20 - 32 mmol/L [facility] Calcium 9.6 8.6 - 10.4 mg/dL [facility] Protein Total 7.1 6.1 - 8.1 g/dL [facility] Albumin 4.7 3.6 - 5.1 g/dL [facility] Globulin Total 2.4 1.9 - 3.7 g/dL (calc) [facility] Albumin/Globulin Ratio 2.0 1.0 - 2.5 (calc) [facility] Bilirubin Total 0.6 0.2 - 1.2 mg/dL [facility] Alkaline Phosphatase 75 33 - 130 U/L [facility] AST 24 10 - 35 U/L [facility] ALT 16 6 - 29 U/L [facility] Comment: Test Performed at: [facility] [id number] GIOVANI EVANS DO,MPH 01/08/2019 7:55 AM CDT 01/08/2019 7:56 AM CDT Tonya Thomas MD LAB - CHEMISTRY [facility] Organization Address City/State/ZIP Co de Phone Number [facility] [address] [place] [address] * VITAMIN B12 (01/08/2019 7:55 AM CDT) Vitamin B12 224 200 - 1100 pg/mL [facility] Comment: Please Note: Although the reference range for vitamin B12 is 200-1100 pg/mL, it has been reported that between 5 and 10% of patients with values between 200 and 400 pg/mL may experience neuropsychiatric and hematologic abnormalities due to occult B12 deficiency; less than 1% of patients with values above 400 pg/mL will have symptoms. REPORT COMMENT: FASTING:YES Test Performed at: [email or web address] [id number] GIOVANI EVANS DO,MPH 01/08/2019 7:55 AM CDT 01/08/2019 7:56 AM CDT Tonya Thomas MD LAB - CHEMISTRY STACEY DAVIES Performing Organization Address [facility] Co de Phone Number [facility] [address] [place] [address] * TSH (01/08/2019 7:55 AM CDT) TSH 2.58 0.40 - 4.50 mIU/L [facility] Comment: Test Performed at: [facility] [address] [place] [address] GIOVANI EVANS DO,MPH 01/08/2019 7:55 AM CDT 01/08/2019 7:56 AM CDT Tonya Thomas MD LAB - CHEMISTRY STACEY JACKYCHUCK Performing Organization Address [facility] Co de Phone Number [facility] [address] [place] [phone] * [place] INTMD WND REPAIR FACE,FACIAL <2.5CM, [place] CHMSRG MOHS MG TQ H/N/H/F/G 1ST STAG 5 BLOC (09/09/2018 4:51 PM HELP DESK ANALYST) Narrative Kyra Guan MD - 09/09/2018 4:51 PM HELP DESK ANALYST Kyra Guan MD 09/09/2018 4:51 PM Date of Service: 09/09/2018 Surgery: Mohs micrographic surgery Indication: Tumor location Repair Type: intermediate/purse string Repair Size: 1.8cm Suture Material: monocryl 4-0 Tumor Type: Basal cell carcinoma Location: left alar crease Derm-Path PreOp Size: 0.9x0.7 cm. PostOp Size: 1.2x1.1 cm. Mohs Level of Defect: fat Procedure: The patient was placed supine on the operating table. The cancer was identified, outlined with a marker, and verified by the patient. The entire surgical field was prepped with iodine. The surgical site was anesthetized using Lidocaine 1% with epinephrine 1:100,000 buffered with sodium bicarbonate 8.4% in a 1:10 ratio. The area of clinically apparent tumor was debulked with 2mm curette. The layer of tissue was then surgically excised using a #15 blade and was then transferred onto a specimen sheet maintaining the orientation of the specimen. Hemostasis was obtained using monopolar electrodessication. The wound site was then covered with a dressing while the tissue samples were processed for examination. The excised tissue was transported to the Mohs histology laboratory maintaining the tissue orientation. The tissue specimen was relaxed so that the entire surgical margin was in a a single horizontal plane for sectioning andinked for precise mapping. A precise reference map was drawn to reflect the sectioning of the specimen, colored inking of the margins, and orientation on the patient. The tissue was processed using horizontal sectioning ofthe base and continuous peripheral margins. The histopathologic sections were reviewed in conjunction with the reference map. Total blocks: 1 Total slides: 4 No additional tumor was identified on microscopic examination, therefore Mohs surgery was complete. Reconstruction: Intermediate/Purse String Closure Primary Surgeon : [facility] Supervisor Surgeon : Jordin The open wound was cleansed with iodine and draped in the usual sterile fashion. The area was infiltrated with Lidocaine 1% with epinephrine 1:100,000 buffered with sodium bicarbonate 8.4% in a 1:10 ratio. A buried vertical mattress suture was placed to narrow the wound. A circumferential horizontal buried suture was distributed evenly throughout the edge of the wound and the wound was drawn closed. The wound was cleansed with saline and ointment was applied to the wound surface. A sterile pressure dressing was applied. Wound care instructions were given verbally and in writing. The patient left the operating suite in stable condition. Dr. Guan performed the entire surgery, and documentation used to initiate this operative report. I entered the information in our [employer] DocFlowsheet with the information provided by Dr. Guan on her handwritten, paper format, surgical worksheet, which was then used to initiate the create of this note. Dr. Guan then reviewed and edited the note as needed to complete the note. Denise Brenner LPN I have reviewed the note, edited it as necessary and performed the entire procedure. Kyra Guan MD Scanner Operator Kyra Guan MD PROCEDURE/MINOR SURG ICAL ORDERABLES * PATHOLOGY TISSUE FOR DERMATOLOGY (02/17/2017 12:00 AM CDT) Only the most recent of2 resultswithin the time period is included. Result CASE: [id number] PATIENT: JAMILAH SHALINI PATHOLOGIC DIAGNOSIS: Left lateral leg: SEBORRHEIC KERATOSIS, CLONAL TYPE ACTINIC KERATOSIS. FOCAL CLINICAL DATA: ISK R/O other. GROSS DESCRIPTION: Received is one formalin filled container labeled with the patients name and designated left lateral leg. The specimen consists of a shave biopsy measuring [id number]. Jar 0. MICROSCOPIC DESCRIPTION: Sections show a proliferation of keratinocytes with overlying hyperkeratosis. Aggregates of keratinocytes with abundant pale-staining cytoplasm appear demarcated from surrounding basaloid keratinocytes. There is also focal parakeratosis. The lower half of the epidermis focally shows disorderly maturation of keratinocytes with nuclear pleomorphism. Electronically signed out by Linn Saenz M.D., PhD. 02/19/2017 1:14:53PM [facility] Comment: Performed at: Dermatopathology Laboratory [facility] Department of Dermatology [address] [place] [address] 5th [place] [address] Phone number: [phone] FAX: [phone] 02/17/2017 02/18/2017 Historical Provider MD LAB - PATHOLOGY/C YTOLOGY ORDERABLES [facility] [address] [place] [address]. 5th Floor Lab [address] [phone] * XR KNEE 1 OR 2 VW RIGHT (12/23/2014 11:14 AM CDT) Anatomical Region Laterality Modality Lower Extremity Radiographic Rosalee ging Narrative 12/26/2014 9:20 AM CDT Negra Kimball 12/26/2014 9:20 AM Please see progress notes for result. Shirin Zambrano MD DIAGNOSTIC IMAGING O RDERABLES * XR KNEE 1 OR 2 VW LEFT (11/16/2012 2:23 PM HELP DESK ANALYST) Anatomical Region Laterality Modality Lower Extremity Other Narrative 11/16/2012 2:23 PM HELP DESK ANALYST RT Amy(R) 11/16/2012 2:23 PM See Chart For Xray Report Procedure Note Crissy Baldwin, RT(R) - 11/16/2012 2:23 PM CST See Chart For Xray Report Sg D Sheldon MD [facility] Care Teams Clinical Abstractor Relationship Specialty [place] [address] [phone] PCP - General Internal Medicine 12/23/14 Sg Chung MD Orthopedic Surgery 11/16/12 Shirin Zambrano MD Orthopedic Surgery 12/23/14
--- OUTSIDE RECORDS SUMMARY | 2024-11-22 10:47 | XMS_ITS ---
Author Organization [facility] , Address [address] [place] [address] Care Team Providers Care Wagon Washer Name Role Phone Faustino Kendrick Primary Care Provider Hermilo Venegas Unavailable [phone] KaterinaMaríaen Unavailable [phone] RESULTS Component Value Reference Range Notes X ray : Thoracic Spine 3 vie ws, AP, Lateral, Swimmers Reviewed date:11/10/2024 12:17:25 PM Interpretation:1056 Performing Lab: Notes/Report: 1056 X ray : Lumbar Spine 3 views , AP, Lateral, Spot Reviewed date:11/10/2024 12:17:11 PM Interpretation:1056 Performing Lab: Notes/Report: 1056 REASON FOR VISIT Compression Fracture MEDICATIONS Medication SIG (Take, Route, Frequency, Duration) Notes Start Date End Date Status Vitamin D3 Active Vitamin C Active Calcium Active Medrol (Kurtis) 4 MG as directed on the p ackage Orally as directed on the package 11/01/2024 Not-Taking predniSONE 10 MG 1 tablet Orally bid for 10 days 06/25/2024 Not-Taking Escitalopram Oxalate Active Trelegy Ellipta Acti ve Doxycycline Active Gabapentin Not-Takin g Atorvastatin Calcium Active Diltiazem CD Active Aspirin 81 Active PreserVision AREDS A ctive PROBLEMS Problem Type ICD Code Onset Dates Problem Status W/U Status Risk SNOMED Code Notes Problem Compression fracture of body of thoracic vertebra (M48.54XA) Active confirmed Compression fracture of thoracic vertebra (disorder) ([id number]) VITAL SIGNS BMI 25.97 kg/m2 11/10/2024 Height 62 in 11/10/2024 Weight 142 lbs 11/10/2024 PROCEDURES Procedure Date Ordered Date Performed Result Body Sit e Kyphoplasty, Thoracic 11/10/2024 11/10/2024 completed Encounters Encounter Location Date Provider Diagnosis [facility] [address] [place] [address] 11/10/2024 Glendy Borges Thoracic back pain M54.6 ; Compression fracture of body of thoracic vertebra M48.54XA and Other low back pain M54.59 ASSESSMENTS Encounter Date Diagnosis Assessment Notes Treatment Notes Treatment Clinical Notes 11/10/2024 Thoracic back pain (ICD-10 - M54.6) 11/10/2024 Compression fracture of body of thoracic vertebra (ICD-10 - M48.54XA) 11/10/2024 Other low back pain (ICD-10 - M54.59) PLAN OF TREATMENT No Information Progress Notes * Examination Category Sub-Category Detail Notes X-Ray LUMBAR X-RAY: AP and lateral v iews of the lumbar spine were obtained today. They demonstrate moderate to severe right hip arthritis and mild left hip arthritis. L4 to 5 shows a spondylolisthesis measuring approximately 5 mm. L5 to S1 shows mild disc degeneration. There is diffuse facet arthritis throughout the lumbar spine MRI Imaging Studies THORACIC SPINE MRI: MRI of t he thoracic spine from 11/04/2024 demonstrates acute T4 and T7 compression fractures, and mild T5 and T6 fractures with a little bit of edema. There is no spinal cord compression or significant nerve impingement
--- OUTSIDE RECORDS SUMMARY | 2024-11-22 10:47 | XMS_ITS | Continuity of Care Document ---
Author Organization [facility] [place] [address] [place] [address] Phone Care Team Providers Care Tractor Trailer Mechanic Name Role Phone iMsha GLEZ, Nichelle Unavailable Unavailable Allergies, Adverse Reactions, Alerts Substance Reaction Status Criticality No Known Allergies Active No Inform ation Medications Medication Instructions Dosage Effective Dates (start - stop) Status Comments Artificial Tears (PF) 0.1 %-0.3 % drops in a dropperette instill 1 gtt into both eyes prn ou - Active Calcium 800 ORAL TABLET 1 tablet by mouth once a day - Active Lexapro 10 mg tablet take 1 tablet by or al route every day 10 MG - Active Vitamin D3 1,000 unit capsule take 1 by oral route every day 1 - Active Procedures Procedure Date Fundus Photography W/ Report Eye Exam & Treatment No Charge Refraction Post-op Follow-up Visit Post-op Follow-up Visit Laser Cataract SX With Toric Lens Remove Cataract, Insert Lens I[facility]-Professional No Charge Refraction Post-op Follow-up Visit Post-op Follow-up Visit Laser Cataract SX With Toric Lens Remove Cataract, Insert Lens IOLMaster-Professional No Charge Refraction No Charge Optomap Fundus Photos Oct-10-2 023 SCODI, Retina Oct-10-2023 Office/outpatient Visit, Est Revise Eyelashes IOLMaster-Technical No Charge Orbscan No Charge [facility] Fundus Photos 022 Revise Eyelashes Office/outpatient Visit, New Office/outpatient Visit, Est Office/outpatient Visit, New Advance Directives Directive Yes / No Effective Date File Name Other Directive No N/A N/A WARNING:The information contained in this section is historical and is provided for information only and does not constitute a legal document or any assurance that the information is still accurate. Please verify the information with the trujillo of the legal document before using it for clinical purposes. Encounters Encounter Description Practice Location Reason(s) For Visit Diagnoses Date Provider Providers Copied on [facility] [facility], [facility] [address], [place], [place], [address], tel:[phone] SEC Werner MONTANO Professional Complete Exam (chief complaint) Other secondary cataract, bilateralPres ence of intraocular lensVitreous degeneration, left eyeDrusen (degenerative ) of macula, bilateral [address] Misha OD [address]helle[address] [facility] [address], [address], [place], [place], [address], . tel:[phone] Referring Provider: Obey Barahona, [facility] [address], [place], [address] . tel:[phone] [facility], [facility] [address], [place], [place], [address], tel:[phone] SEC Werner CHARMAINE Professional Post-Op (chief complaint) Post op visit [address] Misha OD Nichelle. [facility] [address], [address], [place], [place], [address], [place]. tel:[phone] Referring Provider: Obey Barahona, [facility] [address], [place], [address] . tel:[phone] [facility], [address], [place], [place], [address], tel:[phone] [place] CHARMAINE Professional 1 Day CE/IOL Eyehance/To dionna/LensAR (chief complaint) Post op visit [address] Misha OD Nichelle. [facility] [address], [address], [place], [place], [address], . tel:[phone] Referring Provider: Obey Barahona, [facility] [address], [place], [address] . tel:[phone] [facility], [facility] [address], [place], [place], [address], tel:[phone] [facility] [place] No Information [address] [facility] [address], [address], [place], [place], [address], . tel:[phone] Referring Provider: Obey Barahona, [facility] [address], [place], [address] . tel:[phone] [facility], [facility] [address], [place], [place], [address], tel:[phone] SEC [place] No Information [address] [facility] [address], [address], [place], [place], [address], [place]. tel:[phone] Referring Provider: Obey Barahona, [address], [place], [address] . tel:[phone] [facility], [facility] [address], [place], [place], [address], tel:[phone] SEC Werner CHARMAINE Professional Post-Op (chief complaint) Post op visit [address] Augie OD Camila. [facility] [address], [address], [place], [place], [address], [place]. tel:[phone] Referring Provider: Obey Barahona, [facility] [address], [place], [address] . tel:[phone] [facility], [address] [address], [place], [place], [address], [place] tel:[phone] SEC Werner MONTANO Professional Post-Op (chief complaint) Post op visit 3 Misha NEWTON Nichelle. [facility] [address], [address], [place], [place], [address], [place]. tel:[phone] Referring Provider: Obey Barahona, [facility] [address], [place], [address] . tel:[phone] [facility] [employer] [facility], [facility] [address], [place], [place], [address], [place] tel:[phone] [facility] No Information [address] [facility] [address], [address], [place], [place], [address], [place]. tel:[phone] Referring Provider: Obey Barahona, [facility] [address], [place], [address] . tel:[phone] [facility], [facility] [address], [place], [place], [address], [place] tel:[phone] SEC Cathy B[place] No Information [address] [facility] [address], [address], [place], [place], [address], [place]. tel:[phone] Referring Provider: Obey Barahona, [facility] [address], [place], [address] . tel:[phone] Office/outpa tient Visit, Est [facility] [employer] [facility], [facility] [address], [place], [place], [address], [place] tel:[phone] SEC [place] CHARMAINE Professional Cataract evaluation (chief complaint) Combined forms of age-related cataract, bilateralDrus en (degenerative ) of macula, bilateralTric hiasis without entropion right lower eyelidPuckeri ng of macula, left eye Oct-1 0- [address] [facility] [address], [address], [place], [place], [address], [place]. tel:[phone] Referring Provider: Obey Barahona, [facility] [address], [place], [address] . tel:[phone] Office/outpa tient Visit, [facility], [address] [address], [place], [place], [address], [place] [phone] SEC Werner MONTANO Professional Cataract evaluation (chief complaint) Age-related nuclear cataract, bilateralDry eye syndrome of bilateral lacrimal glandsTrichia sis of right lower eyelid Dec- 2 Don Pierce. [address], [facility] [address], [place], [place], [address], [place]. tel:[phone] Referring Provider: Stan Platt, [address] [facility], [place], [address] . tel:[phone] Office/outpa tient Visit, [facility] [address], [place], [place], [address], [place] [phone] SEC Werner MONTANO Professional 2 wk Cornea check (chief complaint) Allergic conjunctiviti s of both eyesPinguecul a of both eyes 201 9 Don Pierce. [address], [facility], [place], [place], [address], [place]. tel:[phone] Referring Provider: Stan Platt, [address], [place], [address] . tel:[phone] Office/outpa tient Visit, [facility], [address], [place], [place], [address], tel:[phone] SEC Werner [place] Professional irritation (chief complaint) Allergic conjunctiviti s of both eyesPinguecul a of both eyes 8 Don Pierce. [address] [facility], [address], [place], [place], [address], [place]. tel:[phone] Referring Provider: Stan Platt, [address] [facility] [address], [place], [address] . tel:[phone] Family History Family Member Type Diagnosis Age At Onset Mother Problem (finding) degenerative disorder o f macula Father Problem (finding) Diabetes mellitus Sister Problem (finding) glaucoma Payers Payer name Insurance type Covered libertarian ID Authoriza timichael(s) [facility] Mdcr Adv CI [id number] Social History Type Description Quantity Date Captured Comments Alcohol Use Details Caffeine Use Details Tobacco Use Status Current non-smoker Smoking Status Never smoker Non-Smoking Tobacco Use Details : No Details Available : No Details Available Sex Female Chief Complaint And Reason For Visit From encounter dated '04/30/2024 11:00'. Complete Exam (chief complaint). Description: The 78 year old patient presents for evaluation of Complete Exam in the right eye and left eye. Hx of PCIOL Toric OU. Pt started a new BP med, and cholesterol pill but unsure of the names of both of them. Pt is on Prednisone for leg currently but it is temporary. Pt states she feels her eyes are only so-so sometimes she feels her DV is not that great. Pt states she is not sure if vision has gotten worse since last visit but knows its not crisp. Pt states she notices it mostly when she has been reading with her reading glasses on for a while and then she notices her DV isn't as clear. Reason For Referral Reason For Referral No Information Plan Of Treatment Date Type Action Status Patient Education Learning About YAG Lase r Capsulotomy completed Patient Education Cataracts: Care Instruc tions completed Patient Education Learning About Your Eye s completed Patient Education Pterygium and Pinguecul a: Care Instru~ completed History Of Present Illness Encounter Date Complaint History Of Prese nt Illness Complete Exam The 78 year old patient presents for evaluation of Complete Exam in the right eye and left eye. Hx of PCIOL Toric OU. Pt started a new BP med, and cholesterol pill but unsure of the names of both of them. Pt is on Prednisone for leg currently but it is temporary. Pt states she feels her eyes are only so-so sometimes she feels her DV is not that great. Pt states she is not sure if vision has gotten worse since last visit but knows its not crisp. Pt states she notices it mostly when she has been reading with her reading glasses on for a while and then she notices her DV isn't as clear. Post-Op The 77 year old patient presents for a 2 week post op CE OS with Toric IOL. Patient is using Diclofenac tid OS and Pred bid OS. Patient states OS is doing good. 1 Day CE/IOL Eyehance/Toric/Lens AR The 77 year old patient presents for evaluation of 1 Day CE/IOL Eyehance/Toric/LensAR in the left eye. Pt states that vision seems blurry today but vision does seem brighter pt states. Pt states no pain or discomfort. Pt has all gtts and understands how to take them as instructed. Post-Op The 77 year old patient presents for evaluation of 2 week Post-Op in the right eye. Pt had CE w/ Eyehance Toric w/LensAR OD on 09/30/2023. Pt is using Diclofenac TID OD and Pred BID OD. Pt feels her eye is doing pretty good, states it scott a little bit in the AM but feels better once the drops are in. Pt states distance vision is doing well. Pt is scheduled for CE/IOL OS on 10/28/2023. Pt still reports having difficulty reading small print, trouble reading road signs, and difficulty filling out forms with OS. Post-Op The 77 year old patient presents for evaluation of 1 day PO for CE/IOL Eyehance Toric w/ LensAR OD. Pt is using Diclofenac TID, Pred QID, and Tobramycin QID. Pt states she is not seeing as clear as she was hoping yet. Cataract evaluation The 77 year old patient presents for a cataract evaluation ou. Patient is having a hard time seeing road signs. Patient is having difficulty reading small print. Cataract evaluation The 76 year old client presents for a cataract evaluation ou. Patient states she was told she has cataracts but states they are not bothersome. Patient states she just would like them looked at. Patient has no VA complaints. 2 wk Cornea check The 72 year ol d female presents for evaluation of 2 wk Cornea check in the right eye. Pt reports she has been using the Pred QID OD. Pt reports OD feels a lot better. irritation The 72 year old female presents for evaluation of irritation in the right eye. Patient states that over the last 3 weeks the right eye has been irritated, FBS, and has a mattery discharge. Patient wears 2 week disposable contact lenses, tosses every 2 weeks, and doesn't sleep in them. Functional Status Date Functional Assessmen t No Information Instructions Date Instruction Additional Infor marjan Impression/Plan Impression/Plan Impression/Plan Impression/Plan Impression/Plan Impression/Plan Impression/Plan Impression/Plan Impression/Plan Assessments Type Assessment Date assessment Other secondary cataract, bilate ral assessment Presence of intraocular lens Apr assessment Vitreous degeneration, left eye assessment Drusen (degenerative) of macula, bilateral Patient Care Teams Name Effective Dates (start - stop) Status Members No Information
--- OUTSIDE RECORDS SUMMARY | 2024-11-22 10:47 | XMS_ITS ---
Author Organization [facility] Address [address] [facility] [address] [place] [address] Care Team Providers Care Toy Maker Name Role Phone Faustino Kendirck Primary Care Provider Hermilo Venegas Unavailable [phone] REASON FOR VISIT schedule 2nd kypho PROCEDURES Procedure Date Ordered Date Performed Result Body Sit e Kyphoplasty, Thoracic 11/10/2024 11/10/2024 completed Encounters Encounter Location Date Provider Diagnosis [facility], [address] [place] [address] 11/10/2024 Hermilo Martínez Compression fractur e of body of thoracic vertebra M48.54XA ASSESSMENTS Encounter Date Diagnosis Assessment Notes Treatment Notes Treatment Clinical Notes 11/10/2024 Compression fracture of body of thoracic vertebra (ICD-10 - M48.54XA) PLAN OF TREATMENT No Information
--- OUTSIDE RECORDS SUMMARY | 2024-11-22 10:47 | XMS_ITS ---
Author Organization [facility] Address [address] [place] [address] Care Team Providers Care Placement Coordinator Name Role Phone Faustino Kendrick Primary Care Provider Anand Segovia Jr, MD, [facility] [phone] ALLERGIES No Known Allergies REASON FOR VISIT Right hip pain MEDICATIONS Medication SIG (Take, Route, Fr equency, Duration) Notes Start Date End Date Status Aspirin 81 Active dilTIAZem HCl Active Gabapentin Active Escitalopram Oxalate Active Atorvastatin Calcium Active Trelegy Ellipta Acti ve SOCIAL HISTORY Tobacco Use: Social History Observation [...] right hip (M16.11) 02/18/20 24 Active confirmed [id number] VITAL SIGNS Height 63 in 07/20/2024 Weight 143 lbs 07/20/2024 BMI 25.33 kg/m2 07/20/2024 Encounters Encounter Location Date Provider Diagnosis [facility] [address], [place] [address] 07/20/2024 Heath Segovia Jr, MD Primary osteoarthritis of right hip M16.11 ASSESSMENTS Encounter Date Diagnosis Assessment Notes Treatment Notes Treatment Clinical Notes 07/20/2024 Primary osteoarthritis of right hip (ICD-10 - M16.11) PLAN OF TREATMENT No Information History and Physical Notes * HPI (History of Present Illness) Category Sub-Category Detail Notes Depression Screening PHQ-2 (2015 Edition) Little interest or pleasure in doing things?: Not at all Feeling down, depressed, or hopeless?: N ot at all Total Score: 0
--- OUTSIDE RECORDS SUMMARY | 2024-11-22 10:47 | XMS_ITS | Referral Summary ---
Author Organization [facility] Address [address] [place] [address] Care Team Providers Care Medical Record Consultant Name Role Phone Sg Chung MD Unavailable [phone] Shirin Zambrano MD Unavailable [phone] Peter Garcia MD Primary Care Provider [phone] Source Comments [facility],non-owned Affiliates and Associated Physician Practices is amultiple site organization consisting of ambulatory clinics and hospital sitesin [place], [place], [place] and [place]. This disclosure is being madepursuant to the Care Everywhere program and may not contain all information available regarding this patient. Last updated 18.[facility] [employer] Allergies No known active allergies Medications * Be aware that medications may not be up to date on this document. Alwaysverify current medications with the patient. Medication Sig Dispensed Refills Start Date End Date Status Cholecalciferol (VITAMIN D PO) Take 1 tablet by mouth once daily Active VENTOLIN HFA 108 (90 BASE) MCG/ACT inhaler Inhale 2 puffs by mouth once daily 11/26/2018 Active meclizine (ANTIVERT) 25 MG tablet Take 1 tablet by mouth every 8 hours as needed 10/12/2018 Active multivitamin (OCUVITE PRESERVISION) TABS tablet Take 1 tablet by mouth once daily Active calcium 600 MG tablet Take 1 tablet by mouth daily with food Active escitalopram (LEXAPRO) 10 MG tablet Take 1 tablet by mouth at bedtime 90 tablet 3 05/24/2019 Active Fluticasone Furoate-Vilanterol (BREO ELLIPTA IN) Active Cyanocobalamin (B-12) 500 MCG Dissolve 500 mcg under the tongue Active omeprazole (PRILOSEC) 20 MG capsule Take 1 capsule by mouth once daily 90 capsule 3 10/16/2020 Active Active Problems Problem Noted Date Diagnosed [...] fe male climacteric states 07/31/2004 01/01/2019 Immunizations Name Administration Dates Next Due INFLUENZA VACCINE, TRIV. (AF LURIA, FLUZONE TRIVALENT; 6MO+) (IIV3) 09/02/2014 INFLUENZA VACCINE, HIGH-DOSE , QUADR. (FLUZONE HIGH-DOSE QUADRIVALENT; 65Y+), 0.7 ML (HD-IIV4) 07/15/2018 Social History Tobacco Use Types Packs/Day Years [...] Mass Index 26.71 05/24/2019 3:25 PM CDT Functional Status Functional Status Response Date of Assess ment Is person deaf or have serious hearing difficult y? No 02/02/2016 Is person blind or have serious difficulty seein g? No 02/02/2016 Does person have serious dif ficulty walking/climbing stairs? No 02/02/2016 Does person have difficulty dressing/bathing? No 02/02/2016 Does person have difficulty doing errands alone? No 02/02/2016 Cognitive Status Response Date of Assessm ent Does person have difficulty concentrating/remembering/making decisions? No 02/02/2016 Plan of Treatment Not on file Care Teams Medical Record Consultant Relationship Specialty [place] [address] [id number] PCP - General Internal Medicine 12/23/14 Sg Chung MD Orthopedic Surgery 11/16/12 Shirin Zambrano MD Orthopedic Surgery 12/23/14
--- OUTSIDE RECORDS SUMMARY | 2024-11-22 10:47 | XMS_ITS | Clinical Summary ---
Author Organization [facility] Address [address] [place] [address] Care Team Providers Care Environmental Manager Name Role Phone Sg Chung MD Unavailable [phone] Shirin Zambrano MD Unavailable [phone] Peter Garcia MD Primary Care Provider [phone] Source Comments [facility],non-owned Affiliates and Associated Physician Practices is amultiple site organization consisting of ambulatory clinics and hospital sitesin [place], [place], [place] and [place]. This disclosure is being madepursuant to the Care Everywhere program and may not contain all information available regarding this patient. Last updated 18.[facility] Allergies No known active allergies Medications * [...] Mass Index 26.71 05/24/2019 3:25 PM CDT Plan of Treatment Health Maintenance Due Date Last Done Comments BONE DENSITY TESTING 1945 MEDICARE AWV 12 MONTHS 1945 DTAP/TDAP/TD VACCINES (1 - Tdap) 1963 PNEUMOCOCCAL VACCINE 50+ (1 of 2 - PCV) 1963 ZOSTER VACCINE (1 of 2) 1994 Respiratory Syncytial Virus (RSV) Vaccine Pt: or over 60 yrs (1 - 1-dose 75+ series) 2019 COVID-19 VACCINE (2023-2 5 season) 2024 INFLUENZA VACCINE (#1) 2024 9, 07/15/2018, 09/02/2014 DEPRESSION SCREENING 10/13/2024 HEPATITIS B VACCINE Aged Out No longe r eligible based on patient's age to complete this topic HIB VACCINE Aged Out No longer eligi ble based on patient's age to complete this topic HPV VACCINE Aged Out No longer eligi ble based on patient's age to complete this topic MENINGOCOCCAL (Group B) VACCINE Aged Out No longer eligible b ased on patient's age to complete this topic MENINGOCOCCAL VACCINE Aged Out No destin hayden eligible based on patient's age to complete this topic Care Teams Environmental Manager Relationship Specialty [place] [id number] [address] PCP - General Internal Medicine 12/23/14 Sg Chung MD Orthopedic Surgery 11/16/12 Shirin Zambrano MD Orthopedic Surgery 12/23/14
--- OUTSIDE RECORDS SUMMARY | 2024-11-22 10:47 | XMS_ITS | Clinical Summary ---
Author Organization [facility] Address [address] [place] [id number] Care Team Providers Care Poultryman Name Role Phone Faustino Kendrick MD Primary Care Provider [phone] Social History Tobacco Use Types Packs/Day Years Used Date Smoking Tobacco: Never Assessed Comments Unknown Sex and Gender Information Value Date Recorded Sex Assigned at Not on file Legal Sex Female 11:44 AM CDT Gender Identity Not on file Sexual Orientation Not on file Plan of Treatment Health Maintenance Due Date Last Done Comments DTaP, Tdap and Td Vaccines (1 - Tdap) 1964 Annual Medicare Wellness Visit 2009 RSV Immunization or 60+ Years (1 - 1-dose 75+ series) 2019 COVID-19 Vaccine ( season) 2024 07/18/2021, 05/23/2021 Influenza Adult (#1) 2024 07/14/2019, 06/22/2019, 07/15/2018, Additional history exists Dexa Scan (General) Completed 04/07/2017, 04/07/2017, 04/30/2013 Zoster Vaccines Completed 04/08/2019, 02/2019, 10/09/2018, Additional history exists Pneumococcal Vaccine: 65+ Years Completed 12/06/2019, 07/14/2019, 06/22/2019, Additional history exists Meningococcal B Vaccine Aged Out No l onger eligible based on patient's age to complete this topic Meningococcal Vaccine Aged Out No destin hayden eligible based on patient's age to complete this topic RSV Immunizations Under 20 Months Aged Out No longer eligible based on patient's age to complete this topic Insurance [facility] Care Teams Poultryman Relationship Specialty Start Date End Date Faustino Kendrick MD [address] [place] [address] PCP - General INTERNAL MEDICINE 08/14/23
--- NOTE | 2024-11-22 12:11 | ED.NAVMDI ---
HPI - Nausea/Vomiting/Diarrhea General Chief complaint: Nausea/Vomiting/Diarrhea <Katarina Louis PA-C - Last Filed: 11/24/24 17:40> Stated complaint: nausea, vomiting, FLUA+ <Katarina Louis PA-C - Last Filed: 11/24/24 17:40> Time Seen by Provider: 11/22/24 12:11 <Katarina Louis PA-C - Last Filed: 11/24/24 17:40> Focused HPI: This is a 79 year old female that presents to the ER for generalized weakness. She is influenza A positive. Reports she has not been able to eat or keep anything down. She has had a lot of nausea, vomiting, headaches, lightheadedness. GENERAL: Elderly, well-nourished, and in no acute distress. HEAD: Normocephalic, atraumatic. CHEST: Clear to auscultation. ?No respiratory distress. HEART: Regular rate and rhythm.? NEURO: ?Alert and oriented x3. Patient screened in triage and initial orders placed.? ?Additional care and disposition to be based upon?diagnostic testing and treatment. <Katarina Louis PA-C - Last Filed: 11/24/24 17:40> History of Present Illness HPI Narrative: I agree with the above HPI. At time of evaluations patient's primary complaint was the nausea and concern for dehydration and inability to eat or drink at home. <Prasanna Gallegos MD - Last Filed: 11/22/24 19:52> Related Data Home medications: Home Medications ?Medication ?Instructions ?Recorded ?Confirmed ?Last Taken ?Type calcium carbonate (Calcium 600) 600 mg PO BID 03/20/22 11/15/24 Unknown History cholecalciferol (vitamin D3) 25 50 mcg PO DAILY 03/20/22 11/15/24 Unknown History mcg (1,000 unit) capsule fluticasone fur. 100 mcg-umeclid 1 inh inhalation DAILY 06/20/22 11/15/24 Unknown History 62.5 mcg-vilant 25 mcg inhalat.powder (Trelegy Ellipta) ascorbate calcium (vitamin C) 500 500 mg PO DAILY 07/16/23 11/15/24 Unknown History mg tablet aspirin 81 mg tablet 81 mg PO DAILY 08/14/23 11/15/24 Unknown History atorvastatin 20 mg tablet 20 mg PO DAILY 12/01/23 11/15/24 Unknown History vit C 250 mg-vit E 90 mg-zinc 40 1 tablet PO DAILY 12/01/23 11/15/24 Unknown History mg-copper 1 ur-jrbijl-gyougp capsule (PreserVision AREDS-2) gabapentin 100 mg capsule 100 mg PO DAILY 10/25/24 11/15/24 Unknown History <Katarina Louis PA-C - Last Filed: 11/24/24 17:40> Allergies/Adverse reactions: Allergies Allergy/AdvReac Type Severity Reaction Status Date / Time No Known Allergies Allergy Verified 11/22/24 10:38 <Katarina Louis PA-C - Last Filed: 11/24/24 17:40> Review of Systems Review of Systems: All systems reviewed & are unremarkable except as noted in HPI and below <Prasanna Gallegos MD - Last Filed: 11/22/24 19:52> [facility] Past Medical History Medical History: Medical History Skin laceration H/O motion sickness BMI 27.0-27.9,adult Right leg pain Right hip pain Chest pain Follow up Benign essential hypertension BMI 26.0-26.9,adult LEONE (dyspnea on exertion) Palpitations Elevated blood pressure reading Hypersomnolence Encounter for routine adult health examination with abnormal findings Mass of right wrist Congestion of both ears Personal history of COVID-19 Hearing loss Encounter for Medicare annual wellness exam Post-menopausal BPPV (benign paroxysmal positional vertigo) On care home drug therapy Lung nodule Hx of colonic polyps Asthma Encounter to establish care BMI 25.0-25.9,adult URI (upper respiratory infection) History of breast cancer <Katarina Louis PA-C - Last Filed: 11/24/24 17:40> Surgical History Surgical History: Surgical History History of partial hysterectomy History of lumpectomy <Katarina Louis PA-C - Last Filed: 11/24/24 17:40> Family History Family History: Family History Mother COPD (chronic obstructive pulmonary disease) Breast cancer Father Renal cancer Hypertension Sibling Asthma <Katarina Louis PA-C - Last Filed: 11/24/24 17:40> Social History Social History: Social History Smoking status: Never smoker Second hand tobacco smoke exposure: Yes Alcohol intake: current Alcohol use details: social ETOH- wine Substance use: never Do You Feel Safe in your Home?: Yes Lack of Transportation: No Lack of Food: Never True Current Housing: I Have Housing Concerned About Future Housing: No Difficulty Paying Gas/Electric Bills: No Difficulty Paying for Meds: No Currently Unemployed: No Education: High School Diploma/GED Difficulty w/ Childcare or Family Care: No Living arrangements: alone Occupation/Education: retired Gender identity (if verbalized by the patient): Female Sexual Orientation (if Verbalized by the Patient): Straight or Heterosexual Spiritual care concerns: No <Katarina Louis PA-C - Last Filed: 11/24/24 17:40> Exam Narrative: APPEARANCE: Well appearing, no pain, no distress, well-nourished. HEAD: normocephalic, atraumatic. EYES: PERRLA/EOMI, conjunctivae clear. NOSE: Normal no drainage EARS:TMS clear with good light reflex. THROAT: Pharynx clear, no exudate. NECK: Supple. No adenopathy, no masses. RESPIRATORY: Airway patent, respirations nonlabored. Clear to auscultation bilaterally, no rales, rhonchi, wheezing. CARDIOVASCULAR: Regular rate and rhythm without murmurs rubs or gallops. ABDOMINAL: Soft, nontender, nondistended, normal bowel sounds MUSCULOSKELETAL: Moves all extremities. Strength/ROM intact, No edema, No calf tenderness. NEURO: Alert. Cranial nerves II through XII intact. Grossly intact SKIN: Warm, dry. Normal Color <Prasanna Gallegos MD - Last Filed: 11/22/24 19:52> Course Vital Signs Vital signs: Vital Signs Temperature 97.6 F 11/22/24 10:34 Pulse Rate 70 11/22/24 10:34 Respiratory Rate 15 11/22/24 10:34 Blood Pressure 140/69 11/22/24 10:34 Pulse Oximetry 98 11/22/24 10:34 Oxygen Delivery Room Air 11/22/24 10:34 Temperature 97.6 F 11/22/24 10:34 Pulse Rate 71 11/22/24 18:01 Respiratory Rate 16 11/22/24 18:01 Blood Pressure 162/76 H 11/22/24 18:01 Pulse Oximetry 97 11/22/24 18:01 Oxygen Delivery Room Air 11/22/24 10:34 <Katarina Louis PA-C - Last Filed: 11/24/24 17:40> Vital Signs Temperature 97.6 F 11/22/24 10:34 Pulse Rate 70 11/22/24 10:34 Respiratory Rate 15 11/22/24 10:34 Blood Pressure 140/69 11/22/24 10:34 Pulse Oximetry 98 11/22/24 10:34 Oxygen Delivery Room Air 11/22/24 10:34 Temperature 97.6 F 11/22/24 10:34 Pulse Rate 71 11/22/24 18:01 Respiratory Rate 16 11/22/24 18:01 Blood Pressure 162/76 H 11/22/24 18:01 Pulse Oximetry 97 11/22/24 18:01 Oxygen Delivery Room Air 11/22/24 10:34 <Prasanna Gallegos MD - Last Filed: 11/22/24 19:52> MDM - Nausea/Vomiting/Diarrhea MDM Narrative Medical decision making narrative: 7-year-old female with diagnosis of influenza a presented emergency department for evaluation for nausea vomiting and suspected dehydration. Patient is currently afebrile she is not tachycardic and is normotensive. Patient has no elevated leukocytosis and a stable hemoglobin of 12.8. No acute electrolyte abnormalities on her CMP including normal kidney function normal BUN. UA was negative for acute infection. Once again patient did test positive for influenza A she was negative influenza B RSV and for COVID. Chest x-ray shows no acute cardiopulmonary abnormality. Patient was treated with IV fluids and IV Zofran. Patient is able to tolerate p.o.. Patient was updated results of workup patient was comfortable plan for discharge and close follow-up. <Prasanna Gallegos MD - Last Filed: 11/22/24 19:52> Differential Diagnosis Differential diagnosis: Likely other ( COVID, RSV, influenza, dehydration, pneumonia) <Prasanna Gallegos MD - Last Filed: 11/22/24 19:52> Lab Data Attestation: I reviewed the patient's lab results. <Prasanna Gallegos MD - Last Filed: 11/22/24 19:52> Result diagrams: 11/22/24 14:03 11/22/24 14:03 <Katarina Louis PA-C - Last Filed: 11/24/24 17:40> Labs: Lab Results 11/22/24 Range/Units 14:03 WBC 2.8 L (4.5-10.0) K/mm3 RBC 4.10 L (4.2-5.4) M/mm3 Hgb 12.8 (12.0-15.0) g/dL Hct 38.1 (37.0-47.0) % MCV 92.9 (80-100) fl MCH 31.2 (26-34) pg MCHC 33.6 (32-36) g/dl RDW 13.1 (11.5-14.5) % Plt Count 215 (150-375) k/mm3 MPV 8.5 (7.4-10.4) fl Immature Gran % (Auto) Not Reportable Neut % (Auto) Not Reportable Lymph % (Auto) Not Reportable Freestone % (Auto) Not Reportable Eos % (Auto) Not Reportable Baso % (Auto) Not Reportable Lymph # (Auto) Not Reportable [place] # (Auto) Not Reportable Eos # (Auto) Not Reportable Baso # (Auto) Not Reportable Abs Immat Gran (auto) Not Reportable Absolute Neuts (auto) Not Reportable Absolute Nucleated RBC Not Reportable Total Counted 100 Neutrophils % (Manual) 50 (46-73) % Band Neutrophils % 2 (0-6) % Lymphocytes % (Manual) 23.0 (18-44) % Monocytes % (Manual) 23 H (3-9) % Eosinophils % (Manual) 1 (0-4) % Basophils % (Manual) 1 (0-1) % Nucleated RBC % Not Reportable Abs Neuts (Manual) 1.45 L (1.7-7.2) K/mm3 Abs Lymphs (Manual) 0.64 L (1.1-4.5) K/mm3 Abs Monocytes (Manual) 0.64 (0.1-0.90) K/mm3 Absolute Eos (Manual) 0.02 (0.02-0.50) K/mm3 Abs Basophils (Manual) 0.02 (0.0-0.1) K/mm3 Platelet Estimate Adequate (Adequate) Schistocytes None seen Sodium 134 L (137-145) mmol/L Potassium 3.5 (3.4-5.0) mmol/L Chloride 98 (98-107) mmol/L Carbon Dioxide 27 (22-30) mmol/L Anion Gap 9 (4-12) mmol/L BUN 11 (7-17) mg/dL Creatinine 0.48 L (0.7-1.0) mg/dL Estim Creat Clear Calc 64 ml/min Estimated GFR > 60 (59 - ) Glucose 88 (65-110) mg/dL Calcium 8.8 (8.4-10.2) mg/dL Total Bilirubin 0.6 (0.2-1.3) mg/dL AST 39 H (14-36) U/L ALT 26 (6-35) U/L Alkaline Phosphatase 110 (38-126) U/L Total Protein 7.0 (6.3-8.2) g/dL Albumin 4.2 (3.5-5.1) g/dL Urine Color Yellow (Yellow) Urine Appearance Clear (Clear) Urine pH 6.0 (5.0-9.0) Ur Specific [place] 1.017 (1.001-1.035) Urine Protein Trace (Negative) mg/dL Urine Glucose (UA) Negative (Negative) mg/dL Urine Ketones 1+ H (Negative) mg/dL Ur Blood (Man) Negative (Negative) Urine Nitrate Negative (Negative) Urine Bilirubin Negative (Negative) Urine Urobilinogen 1.0 (<2.0) mg/dL Leukocyte Esterase Rfl Negative (Negative) TALHA/UL Urine RBC 0-2 (0-2) /hpf Urine WBC 0-5 (0-3) /hpf Ur Squamous Epith Cells None seen (Few) /hpf Urine Bacteria None seen /hpf Urine Casts 0-2 Influenza A (RT-PCR) Positive A (Negative) Influenza B (RT-PCR) Negative (Negative) RSV (RT-PCR) Negative (Negative) SARS-CoV-2 RNA (RT-PCR) Negative (Negative) <Katarina Louis PA-C - Last Filed: 11/24/24 17:40> Lab Results 11/22/24 Range/Units 14:03 WBC 2.8 L (4.5-10.0) K/mm3 RBC 4.10 L (4.2-5.4) M/mm3 Hgb 12.8 (12.0-15.0) g/dL Hct 38.1 (37.0-47.0) % MCV 92.9 (80-100) fl MCH 31.2 (26-34) pg MCHC 33.6 (32-36) g/dl RDW 13.1 (11.5-14.5) % Plt Count 215 (150-375) k/mm3 MPV 8.5 (7.4-10.4) fl Immature Gran % (Auto) Not Reportable Neut % (Auto) Not Reportable Lymph % (Auto) Not Reportable Freestone % (Auto) Not Reportable Eos % (Auto) Not Reportable Baso % (Auto) Not Reportable Lymph # (Auto) Not Reportable [place] # (Auto) Not Reportable Eos # (Auto) Not Reportable Baso # (Auto) Not Reportable Abs Immat Gran (auto) Not Reportable Absolute Neuts (auto) Not Reportable Absolute Nucleated RBC Not Reportable Total Counted 100 Neutrophils % (Manual) 50 (46-73) % Band Neutrophils % 2 (0-6) % Lymphocytes % (Manual) 23.0 (18-44) % Monocytes % (Manual) 23 H (3-9) % Eosinophils % (Manual) 1 (0-4) % Basophils % (Manual) 1 (0-1) % Nucleated RBC % Not Reportable Abs Neuts (Manual) 1.45 L (1.7-7.2) K/mm3 Abs Lymphs (Manual) 0.64 L (1.1-4.5) K/mm3 Abs Monocytes (Manual) 0.64 (0.1-0.90) K/mm3 Absolute Eos (Manual) 0.02 (0.02-0.50) K/mm3 Abs Basophils (Manual) 0.02 (0.0-0.1) K/mm3 Platelet Estimate Adequate (Adequate) Schistocytes None seen Sodium 134 L (137-145) mmol/L Potassium 3.5 (3.4-5.0) mmol/L Chloride 98 (98-107) mmol/L Carbon Dioxide 27 (22-30) mmol/L Anion Gap 9 (4-12) mmol/L BUN 11 (7-17) mg/dL Creatinine 0.48 L (0.7-1.0) mg/dL Estim Creat Clear Calc 64 ml/min Estimated GFR > 60 (59 - ) Glucose 88 (65-110) mg/dL Calcium 8.8 (8.4-10.2) mg/dL Total Bilirubin 0.6 (0.2-1.3) mg/dL AST 39 H (14-36) U/L ALT 26 (6-35) U/L Alkaline Phosphatase 110 (38-126) U/L Total Protein 7.0 (6.3-8.2) g/dL Albumin 4.2 (3.5-5.1) g/dL Urine Color Yellow (Yellow) Urine Appearance Clear (Clear) Urine pH 6.0 (5.0-9.0) Ur Specific [place] 1.017 (1.001-1.035) Urine Protein Trace (Negative) mg/dL Urine Glucose (UA) Negative (Negative) mg/dL Urine Ketones 1+ H (Negative) mg/dL Ur Blood (Man) Negative (Negative) Urine Nitrate Negative (Negative) Urine Bilirubin Negative (Negative) Urine Urobilinogen 1.0 (<2.0) mg/dL Leukocyte Esterase Rfl Negative (Negative) TALHA/UL Urine RBC 0-2 (0-2) /hpf Urine WBC 0-5 (0-3) /hpf Ur Squamous Epith Cells None seen (Few) /hpf Urine Bacteria None seen /hpf Urine Casts 0-2 Influenza A (RT-PCR) Positive A (Negative) Influenza B (RT-PCR) Negative (Negative) RSV (RT-PCR) Negative (Negative) SARS-CoV-2 RNA (RT-PCR) Negative (Negative) <Prasanna Gallegos MD - Last Filed: 11/22/24 19:52> Imaging Data Radiologist's impression: Impressions Chest X-Ray 11/22/24 13:42 IMPRESSION: 1. No acute cardiopulmonary disease. <Prasanna Gallegos MD - Last Filed: 11/22/24 19:52> Critical Care Time Critical Care Time Critical Care Time: No <Katarina Louis PA-C - Last Filed: 11/24/24 17:40> Discharge Plan Discharge Clinical Impression: Influenza A Nausea & vomiting Qualifiers: Vomiting type: unspecified Qualified Code(s): R11.2 - Nausea with vomiting, unspecified <Katarina Louis PA-C - Last Filed: 11/24/24 17:40> Patient Disposition: Home, Self-Care <Katarina Louis PA-C - Last Filed: 11/24/24 17:40> Condition: Stable <Katarina Louis PA-C - Last Filed: 11/24/24 17:40> Instructions: Antibiotic Form, Clear Liquid Diet (ED), Influenza (ED), Acute Nausea and Vomiting (ED) <Katarina Louis PA-C - Last Filed: 11/24/24 17:40> Additional Instructions: Zofran as needed for nausea control. Clear liquid diet for the next 1-3 days. Advance to bland diet as tolerated. Have close follow-up with your primary care physician. If you have any worsening symptoms then please call or return to the emergency department. <Katarina Louis PA-C - Last Filed: 11/24/24 17:40> Patient Language: Estonian <Katarina Louis PA-C - Last Filed: 11/24/24 17:40> Prescriptions: New ondansetron 4 mg tablet,disintegrating 4 mg PO Q8H PRN (Reason: nausea and vomiting) Qty: 14 0RF No Action ascorbate calcium (vitamin C) 500 mg tablet 500 mg PO DAILY scopolamine base 1 mg over 3 days patch 3 day 1 patch transdermal Q3D PRN (Reason: motion sickness) Qty: 3 0RF Trelegy Ellipta 100-62.5-25 mcg blister with device 1 inh inhalation DAILY aspirin 81 mg tablet 81 mg PO DAILY PreserVision AREDS-2 250-90-40-1 mg capsule 1 tablet PO DAILY atorvastatin 20 mg tablet 20 mg PO DAILY tramadol 50 mg tablet 50 mg PO Q6H PRN (Reason: pain) Qty: 50 0RF gabapentin 100 mg capsule 100 mg PO DAILY calcium carbonate [Calcium 600] 600 mg calcium (1,500 mg) tablet 600 mg PO BID cholecalciferol (vitamin D3) 25 mcg (1,000 unit) capsule 50 mcg PO DAILY mupirocin 2 % ointment 1 applic topical BID Qty: 22 0RF diltiazem HCl 240 mg capsule,extended release 24hr See Rx Instructions .ROUTE .COMPLEX Qty: 90 0RF Dose Instruction: TAKE 1 CAPSULE BY MOUTH DAILY Rx Instructions: TAKE 1 CAPSULE BY MOUTH DAILY escitalopram oxalate 10 mg tablet See Rx Instructions .ROUTE .COMPLEX Qty: 90 0RF Dose Instruction: TAKE 1 TABLET BY MOUTH EVERY DAY Rx Instructions: TAKE 1 TABLET BY MOUTH EVERY DAY benzonatate 200 mg capsule 200 mg PO TID PRN (Reason: cough) Qty: 40 0RF <Katarina Louis PA-C - Last Filed: 11/24/24 17:40> Follow-up/Referrals: Faustino Kendrick MD [Primary Care Provider] - <Katarina Louis PA-C - Last Filed: 11/24/24 17:40>
--- NOTE | 2024-11-22 12:12 | ECG_ITS ---
Test Date: 2024-11-22 14:03:51 Measurements Intervals [place] Rate: 68 P: 14 RI: 167 QRS: -51 QRSD: 128 T: 58 QT: 423 QTc: 452 Interpretive Statements SINUS RHYTHM RIGHT BUNDLE BRANCH BLOCK LEFT ANTERIOR FASCICULAR BLOCK LEFT VENTRICULAR HYPERTROPHY AND ST-T CHANGE CANNOT R/O SEPTAL INFARCT, AGE INDETERMINATE BASELINE ARTIFACT- I, III, AVR, AVL, AVF, V1-V6 ABNORMAL ECG No previous ECG available for comparison Electronically Signed On 11-22-2024 14:07:49 UNIT SECY by Nate العراقي D.O.
--- OUTSIDE RECORDS SUMMARY | 2024-11-22 12:42 | XMS_ITS | Continuity of Care Document ---
Author Organization [facility] Address [address] [place] [address] [place] [address] Phone Care Team Providers Care Internal Combustion Engineer Name Role Phone Misha GLEZ, Nichelle Unavailable Unavailable Allergies, Adverse Reactions, Alerts Substance Reaction Status Criticality No Known Allergies Active No Inform ation Medications Medication Instructions Dosage Effective Dates (start - stop) Status Comments Vitamin D3 1,000 unit capsule take 1 by oral route every day 1 - Active Lexapro 10 mg tablet take 1 tablet by or al route every day 10 MG - Active Calcium 800 ORAL TABLET 1 tablet by mouth once a day - Active Artificial Tears (PF) 0.1 %-0.3 % drops in a dropperette instill 1 gtt into both eyes prn ou - Active Procedures Procedure Date Fundus Photography [...] Diagnoses Date Provider Providers Copied on Encounter [facility], [facility] charity: water [facility] [address], [place], [place], [address], tel:[phone] SEC Werner MONTANO Professional Complete Exam (chief complaint) Other secondary cataract, bilateralPres ence of intraocular lensVitreous degeneration, left eyeDrusen (degenerative ) of macula, bilateral 4 Misha OD Nichelle. [facility] [address], [address], [place], [place], [address], . tel:[phone] Referring Provider: Obey Barahona, [facility] [address], [place], [address] . tel:[phone] [facility], [facility] [address], [place], [place], [address], tel:[phone] SEC Werner CHARMAINE Professional Post-Op (chief complaint) Post op visit 4 Misha OD Nichelle. [facility] [address], [address], [place], [place], [address], [place]. tel:[phone] Referring Provider: Obey Barahona, [facility] [address], [place], [address] . tel:[phone] [facility], [address] charity: water [address], [place], [place], [address], tel:[phone] [place] CHARMAINE Professional 1 Day CE/IOL Eyehance/To dionna/LensAR (chief complaint) Post op visit 4 Misha OD Nichelle. [facility] [address], [address], [place], [place], [address], . tel:[phone] Referring Provider: Obey Barahona, [facility] [address], [place], [address] . tel:[phone] [facility] Eye [facility], [facility] charity: water [address], [place], [place], [address], tel:[phone] [facility] [place] No Information 4 Gaetano Barnhart. [facility] [address], [address], [place], [place], [address], . tel:[phone] Referring Provider: Obey Barahona, [facility] [address], [place], [address] . tel:[phone] [facility] Eye [facility], [facility] charity: water [address], [place], [place], [address], tel:[phone] SEC [employer] [place] No Information 4 Gaetano Barnhart. [facility] [address], [address], [place], [place], [address], [place]. tel:[phone] Referring Provider: Obey Barahona, [address], [place], [address] . tel:[phone] [facility], [facility] charity: water [address], [place], [place], [address], tel:[phone] SEC Werner CHARMAINE Professional Post-Op (chief complaint) Post op visit 4 Augie OD Camila. [facility] charity: water [address], [address], [place], [place], [address], [place]. tel:[phone] Referring Provider: Obey Barahona, [facility] [address], [place], [address] . tel:[phone] [employer] [facility], [address] charity: water [address], [place], [place], [address], [place] tel:[phone] SEC Werner MONTANO Professional Post-Op (chief complaint) Post op visit 3 Misha NEWTON Nichelle. [facility] [address], [address], [place], [place], [address], [place]. tel:[phone] Referring Provider: Obey Barahnoa, [facility] [address], [place], [address] . tel:[phone] [facility] [employer] [facility], [facility] [address], [place], [place], [address], [place] tel:[phone] [facility] No Information 3 Gaetano Barnhart. [facility] [address], [address], [place], [place], [address], [place]. tel:[phone] Referring Provider: Obey Barahona, [facility] [address], [place], [address] . tel:[phone] [facility], [facility] charity: water [address], [place], [place], [address], [place] tel:[phone] SEC Cathy BUSTAMANTE No Information 3 Gaetano Barnhart. [facility] [address], [address], [place], [place], [address], [place]. tel:[phone] Referring Provider: Obey Barahona, [facility] [address], [place], [address] . tel:[phone] Office/outpa tient Visit, Est [facility] [employer] [facility], [facility] charity: water [address], [place], [place], [address], [place] tel:[phone] [place] CHARMAINE Professional Cataract evaluation (chief complaint) Combined forms of age-related cataract, bilateralDrus en (degenerative ) of macula, bilateralTric hiasis without entropion right lower eyelidPuckeri ng of macula, left eye Oct-1 0- 3 Gaetnao Barnhart. [facility] [address], [address], [place], [place], [address], [place]. tel:[phone] Referring Provider: Obey Barahona, [facility] [address], [place], [address] . tel:[phone] Office/outpa tient Visit, [facility], [address], [place], [place], [address], [place] [phone] SEC Werner MONTANO Professional Cataract evaluation (chief complaint) Age-related nuclear cataract, bilateralDry eye syndrome of bilateral lacrimal glandsTrichia sis of right lower eyelid Dec- 2 Don Pierce. [address] [facility] [address], [place], [place], [address], [place]. tel:[phone] Referring Provider: Stan Platt, [address] [facility] [address], [place], [address] . tel:[phone] Office/outpa tient Visit, [facility], [address], [place], [place], [address], [place] [phone] SEC Werner MONTANO Professional 2 wk Cornea check (chief complaint) Allergic conjunctiviti s of both eyesPinguecul a of both eyes 201 9 Don Pierce. [address], [facility] [address], [place], [place], [address], [place]. tel:[phone] Referring Provider: Stan Platt, [address], [place], [address] . tel:[phone] Office/outpa tient Visit, [facility], [address], [place], [place], [address], tel:[phone] SEC Werner [place] Professional irritation (chief complaint) Allergic conjunctiviti s of both eyesPinguecul a of both eyes 8 Don Pierce. [address] [facility], [place], [place], [address], [place]. tel:[phone] Referring Provider: Stan Platt, [address] [facility] [address], [place], [address] . tel:[phone] Family History Family Member Type Diagnosis Age At Onset Mother Problem (finding) degenerative disorder o f macula Father Problem (finding) Diabetes mellitus Sister Problem (finding) glaucoma Payers Payer name Insurance type Covered libertarian ID Authoriza timichael(s) [facility] Mdcr Adv CI [id number] Social History Type Description Quantity Date Captured [...]
--- OUTSIDE RECORDS SUMMARY | 2024-11-22 12:42 | XMS_ITS | CONTINUITY OF CARE DOCUMENT ---
Author Name rosa lee Address Unknown Organization [facility] Address [address] [place] [address] Phone [phone] Care Team Providers Care Exhaust Emissions Inspector Name Role Phone J Luis Loza MD Unavailable [phone] J Luis Loza MD Unavailable [phone] INSURANCE PROVIDERS Payer name Policy type / Coverage type [place] red republican ID AARP MEDICARE ADVANTAGE [facility] (PPO) Medicare [id number]
--- OUTSIDE RECORDS SUMMARY | 2024-11-22 12:42 | XMS_ITS | Patient Health Summary ---
Author Organization [facility] Address [address] [place] [address] Care Team Providers Care Engraver Flatware Name Role Phone Sg Chung MD Unavailable [phone] Shirin Zambrano MD Unavailable [phone] Peter Garcia MD Primary Care Provider [phone] Note from [facility],non-owned Affiliates and Associated Physician Practices is amultiple site organization consisting of ambulatory clinics and hospital sitesin [place], [place], [place] and [place]. This disclosure is being madepursuant to the Care Everywhere program and may not contain all information available regarding this patient. Last updated 18.[facility] Allergies No known active allergies Medications [...] 01/08/2019) * COMPREHENSIVE METABOLIC PANEL(Performed 01/08/2019) * NC CHMSRG MOHS MG TQ H/N/H/F/G 1ST STAG 5 BLOC(Performed 09/09/2018) Performed for Basal cell carcinoma of nose * NC INTMD WND REPAIR FACE,FACIAL <2.5CM(Performed 09/09/2018) Performed [...] 1.4 % [facility] Comment: Test Performed at: [facility] [address] [place] [address] GIOVANI EVANS DO,MPH 01/08/2019 7:55 AM CDT 01/08/2019 7:56 AM CDT Tonya Thomas MD LAB - HEMATOLOGY ORD ERABLES [facility] [address] [place] [address] * COMPREHENSIVE METABOLIC PANEL (01/08/2019 7:55 AM CDT) Pathologist [facility] Glucose 95 65 - 99 mg/dL [facility] Comment: Fasting reference interval BUN 11 7 - 25 mg/dL [facility] Creatinine 0.71 0.60 - 0.93 mg/dL [facility] Comment: For patients >49 years of age, the reference limit for Creatinine is approximately 13% higher for people identified as -Northern Irish. eGFR by MDRD 84 > OR = [...] 29 U/L [facility] Comment: Test Performed at: [facility] [address] GIOVANI EVANS DO,MPH 01/08/2019 7:55 AM CDT 01/08/2019 7:56 AM CDT Tonya Thomas MD LAB - CHEMISTRY [facility] Organization Address City/State/ZIP Co de Phone Number [facility] [address] [place] [address] * VITAMIN B12 (01/08/2019 7:55 AM CDT) [...] symptoms. REPORT COMMENT: FASTING:YES Test Performed at: [facility] [address] GIOVANI EVANS DO,MPH 01/08/2019 7:55 AM CDT 01/08/2019 7:56 AM CDT Tonya Thomas MD LAB - CHEMISTRY STACEY DAVIES Performing Organization Address [facility] Co de Phone Number [facility] [address] [place] [address] * TSH (01/08/2019 7:55 AM CDT) TSH 2.58 0.40 - 4.50 mIU/L [facility] Comment: Test Performed at: [employer] [place] [address] [place] [address] GIOVANI EVANS DO,MPH 01/08/2019 7:55 AM CDT 01/08/2019 7:56 AM CDT Tonya Thomas MD LAB - CHEMISTRY STACEY JACKYCHUCK Performing Organization Address [facility] Co de Phone Number [facility] [address] [place] [phone] * NC INTMD WND REPAIR FACE,FACIAL <2.5CM, NC CHMSRG MOHS MG TQ H/N/H/F/G 1ST STAG 5 BLOC (09/09/2018 4:51 PM RIGGER) Narrative Kyra Guan MD - 09/09/2018 4:51 PM RIGGER Kyra Guan MD 09/09/2018 4:51 PM Date [...] Intermediate/Purse String Closure Primary Surgeon : Freida Branding Machine Operator Surgeon : Jordin The open wound was [...] report. I entered the information in our [employer] DocFlowsheet with the information provided by Dr. Guan on her handwritten, paper format, surgical worksheet, which was then used to initiate the create of this note. Dr. Guan then reviewed and edited the note as needed to complete the note. Denise Brenner LPN I have reviewed the note, edited it as necessary and performed the entire procedure. Kyra Guan MD Change Coordinator Kyra Guan MD PROCEDURE/MINOR SURG ICAL ORDERABLES * PATHOLOGY TISSUE FOR DERMATOLOGY (02/17/2017 12:00 AM CDT) Only the most recent of2 resultswithin the time period is included. Result CASE: [id number] PATIENT: JAMILAH SHALINI PATHOLOGIC DIAGNOSIS: Left lateral leg: SEBORRHEIC KERATOSIS, CLONAL TYPE ACTINIC KERATOSIS. FOCAL CLINICAL DATA: ISK R/O other. GROSS DESCRIPTION: Received is one formalin filled container labeled with the patients name and designated left lateral leg. The specimen consists of a shave biopsy measuring [id number]. Jar 0. MICROSCOPIC DESCRIPTION: Sections show a proliferation of keratinocytes with overlying hyperkeratosis. Aggregates of keratinocytes with abundant pale-staining cytoplasm appear demarcated from surrounding basaloid keratinocytes. There is also focal parakeratosis. The lower half of the epidermis focally shows disorderly maturation of keratinocytes with nuclear pleomorphism. Electronically signed out by Linn Saenz M.D., PhD. 02/19/2017 1:14:53PM [facility] Comment: Performed at: Dermatopathology Laboratory [facility] Department of Dermatology [address] [place] [address] 5th [place] [address] Phone number: [phone] FAX: [phone] 02/17/2017 02/18/2017 Historical Provider MD LAB - PATHOLOGY/C YTOLOGY ORDERABLES [facility] [address] [place] [address]. 5th Floor Lab [address] [phone] * XR KNEE 1 OR 2 VW RIGHT (12/23/2014 11:14 AM CDT) Anatomical Region Laterality Modality Lower Extremity Radiographic Rosalee ging Narrative 12/26/2014 9:20 AM CDT Negra Kimball 12/26/2014 9:20 AM Please see progress notes for result. Shirin Zambrano MD DIAGNOSTIC IMAGING O RDERABLES * XR KNEE 1 OR 2 VW LEFT (11/16/2012 2:23 PM RIGGER) Anatomical Region Laterality Modality Lower Extremity Other Narrative 11/16/2012 2:23 PM RIGGER RT Amy(R) 11/16/2012 2:23 PM See Chart For Xray Report Procedure Note Crissy Baldwin, RT(R) - 11/16/2012 2:23 PM CST See Chart For Xray Report Sg D Sheldon MD DIAGNOSTIC IMAGING O [facility] Care Teams Engraver Flatware Relationship Specialty [place] [address] [phone] PCP - General Internal Medicine 12/23/14 Sg Chung MD Orthopedic Surgery 11/16/12 Shirin Zambrano MD Orthopedic Surgery 12/23/14
--- OUTSIDE RECORDS SUMMARY | 2024-11-22 12:42 | XMS_ITS | Referral Summary ---
Author Organization [facility] Address [address] [place] [address] Care Team Providers Care Pct Name Role Phone Faustino Kendrick MD Primary Care Provider [phone] J Luis Loza MD Unavailable Encounters Date Type Department Care Team Description 11/20/2024 10:15 AM QUANTITATIVE ASSOCIATE Office Visit [facility] at [address] [address] Ana Herman NP Influenza A (Primary Dx) from Last 3 Months Allergies No known active allergies Medications cholecalciferol (VITAMIN D3) 2,000 unit capsule Take 1 capsule (2,000 Units total) by mouth daily Active calcium-vits P7-B-O0-mineral s 166.75 mg- 166.75 unit capsule Take 1 capsule by mouth daily Active escitalopram (LEXAPRO) 10 mg tablet Take 1 tablet (10 mg total) by mouth daily 9 Active fluticasone-ume clidin-vilanter (Trelegy Ellipta) 100-62.5-25 mcg inhaler Inhale 1 puff daily Active yv-sf-CI-vit D-jfdum-tnbw-ze ax (Ocuvite Eye Plus Multi) 200-15-150 mcg [...] artery disease of n ative artery of [place] heart with stable angina pectoris 10/31/2023 Assessment & Plan (06/18/2024 1:52 PM CDT): Stable. Continue aspirin and Lipitor. Assessment & Plan (10/31/2023 1:48 PM QUANTITATIVE ASSOCIATE): Explained to the patient and family that [...] diltiazem Assessment & Plan (10/31/2023 1:48 PM QUANTITATIVE ASSOCIATE): Reasonably well controlled. Continue diltiazem. Trichiasis 10/10/2023 [...] on file Legal Sex Female 9:13 AM QUANTITATIVE ASSOCIATE Gender Identity Female 03/19/2018 2:40 PM CDT Sexual Orientation Not on file Occupation Industry Job Start Date Job End Date Retired Not on file Not on file Not on file Last Filed Vital Signs Vital Sign Reading Time Taken Comments Blood Pressure 134/64 11/20/2024 9:21 AM QUANTITATIVE ASSOCIATE Pulse 72 11/20/2024 9:21 AM QUANTITATIVE ASSOCIATE Temperature 38 C (100.4 F) 11/20/2024 9:21 AM QUANTITATIVE ASSOCIATE Respiratory Rate 18 11/20/2024 9:21 AM QUANTITATIVE ASSOCIATE Oxygen Saturation 96% 11/20/2024 9:21 AM QUANTITATIVE ASSOCIATE Inhaled Oxygen Concentration - - Weight 66.7 kg (147 lb) 11/20/2024 9:21 AM QUANTITATIVE ASSOCIATE Height 160 cm (5' 3 ) 11/20/2024 9:21 AM QUANTITATIVE ASSOCIATE Body Mass Index 26.04 11/20/2024 9:21 AM QUANTITATIVE ASSOCIATE Plan of Treatment Not on file Procedures Procedure Name Priority Date/Time Associated Diagnosis Comments POC INFLUENZA A/B, COVID-19 ANTIGEN Routine 11/20/2024 9:30 AM QUANTITATIVE ASSOCIATE Influenza A DEXA AXIAL SKELETON BONE DENSITY 1 OR MORE SITES Routine 04/07/2017 5:00 PM CDT from Last 3 Months or Most Recently Relevant to Health Maintenance Results * (ABNORMAL) POC Influenza A/B, COVID-19 antigen (11/20/2024 9:30 AM QUANTITATIVE ASSOCIATE) Influenza A Ag, POC Positive(A) Negative [facility] Influenza B Ag, POC Negative Negative [facility] COVID-19 Ag POC Presumptive Negative Presumptive Negative, Invalid [facility] Nasal 11/20/2024 9:30 AM QUANTITATIVE ASSOCIATE Ana Herman NP POINT OF CARE TEST ORDERABLES F inal Result [facility] [address] [place] [address] * Dexa Axial Skeleton Bone Density 1 or 2 Site (04/07/2017 5:00 PM CDT) Anatomical Region Laterality Modality Body N/A Radiographic Rosalee ging 04/07/2017 5:00 PM CDT Narrative 04/07/2017 5:00 PM CDT DATE OF EXAM: Apr 07 2017 12:00PM Acc#: [id number] [facility] 0001 - DEXA Bone Density Axial [...] recommended. Electronically signed by: Héctor Lockwood M.D. FILM PROJECTOR OPERATOR: PSC TRANSCRIBE DATE/TIME: Apr 07 2017 3:49P RADIOLOGIST: HÉCTOR LOCKWOOD M.D. READ ON: Apr 07 2017 3:53P ORDERING DR: CHUCK GARLAND M.D. THIS DOCUMENT HAS BEEN ELECTRONICALLY SIGNED BY: HÉCTOR LOCKWOOD M.D. ON: Apr 07 2017 3:49P Attending: CHUCK GARLAND Requesting: CHUCK GARLAND Requesting Attending Attending ID: [id number] Requesting ID: [id number] Report To 1 ID: Report To 1 Name: , Report To 1 FAX: -- Report To 2 ID: Report To 2 Name: , Report To 2 FAX: -- NextGen Order #: Procedure Note Miscellaneous, Not In File / Provider, MD Jasbir - 04/07/2017 DATE OF EXAM: Apr 07 2017 12:00PM Acc#: [id number] [facility] 0001 - DEXA Bone Density Axial [...] recommended. Electronically signed by: Héctor Lockwood M.D. FILM PROJECTOR OPERATOR: PSC TRANSCRIBE DATE/TIME: Apr 07 2017 3:49P RADIOLOGIST: HÉCTOR LOCKWOOD M.D. READ ON: Apr 07 2017 3:53P ORDERING DR: CHUCK GARLAND M.D. THIS DOCUMENT HAS BEEN ELECTRONICALLY SIGNED BY: HÉCTOR LOCKWOOD M.D. ON: Apr 07 2017 3:49P Attending: CHUCK GARLAND Requesting: CHUCK GARLAND Requesting Attending Attending ID: [id number] Requesting ID: [id number] Report To 1 ID: Report To 1 Name: , Report To 1 FAX: -- Report To 2 ID: Report To 2 Name: , Report To 2 FAX: -- NextGen Order #: Chuck Garland MD IMG DXA PROCEDURES Final Result from Last 3 Months or Most Recently Relevant to Health Maintenance Additional Health Concerns Infection Onset Date Last Indicated Influenza, adult 11/20/2024 11/20/2024 Insurance [facility] INSURANCE MEDICARE SOLUTIONS MEDICARE COMMERCIAL GENERIC MEDICARE SOLUTIONS Advance Directives For more information, please contact: [phone] * Full Code (Latest Code Status on File) Date Activated Date Inactivated Comments 10/03/2023 3:33 AM 10/04/2023 5:48 PM Care Teams Pct Relationship Specialty Start Date End Date Faustino Kendrick MD [address] [facility] [address] [address] INTERNAL MEDICINE [address] [place] [id number] PCP - General Internal Medicine 10/03/23 J Luis Loza MD [address] [place] [address] INTERNAL MEDICINE [facility] [address] [place] [address] Referring Physician Cardiology 10/04/23
--- OUTSIDE RECORDS SUMMARY | 2024-11-22 12:42 | XMS_ITS | Clinical Summary ---
Author Organization [facility] Address [address] [place] [address] Phone Care Team Providers Care Utilities And Maintenance Supervisor Name Role Phone Peter Garcia MD Primary Care Provider [phone] Allergies No known active allergies Medications escitalopram [...] 04/08/2019, 02/2019, 10/09/2018, Additional history exists Insurance [place] [employer] [place] CHARMA[place]air [id number] MEDICARE PART A AND B [facility] MEDICARE SUPPLEMENT Care Teams Utilities And Maintenance Supervisor Relationship Specialty [place] [address] [facility] [address] [place] [address] PCP - General Internal Medicine 06/16/20
--- OUTSIDE RECORDS SUMMARY | 2024-11-22 12:42 | XMS_ITS | Clinical Summary ---
Author Organization [facility] Address [address] [place] [address] Care Team Providers Care Metal Gauge Maker Name Role Phone Faustino Kendrick MD Primary Care Provider [phone] J Luis Loza MD Unavailable Allergies No known active allergies Medications cholecalciferol (VITAMIN D3) 2,000 unit capsule Take 1 capsule (2,000 Units total) by mouth daily Active calcium-vits N0-N-L5-mineral s 166.75 mg- 166.75 unit capsule Take 1 capsule by mouth daily Active escitalopram (LEXAPRO) 10 mg tablet Take 1 tablet (10 mg total) by mouth daily 9 Active fluticasone-ume clidin-vilanter (Trelegy Ellipta) 100-62.5-25 mcg inhaler Inhale 1 puff daily Active cy-ym-WZ-vit M-ltzuk-hcwd-ze ax (Ocuvite Eye Plus Multi) 200-15-150 mcg [...] 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 Continue aspirin and Lipitor. Assessment & Plan (10/31/2023 1:48 PM HOME SCHOOL COORDINATOR): Explained to the patient and family that [...] diltiazem Assessment & Plan (10/31/2023 1:48 PM HOME SCHOOL COORDINATOR): Reasonably well controlled. Continue diltiazem. Trichiasis 10/10/2023 [...] Department Care Team Description 11/20/2024 10:15 AM HOME SCHOOL COORDINATOR Office Visit [facility] at [address] [address] Ana Herman NP Influenza A [...] on file Legal Sex Female 9:13 AM HOME SCHOOL COORDINATOR Gender Identity Female 03/19/2018 2:40 PM CDT Sexual Orientation Not on file Occupation Industry Job Start Date Job End Date Retired Not on file Not on file Not on file Obstetrics History Last Filed Vital Signs Vital Sign Reading Time Taken Comments Blood Pressure 134/64 11/20/2024 9:21 AM HOME SCHOOL COORDINATOR Pulse 72 11/20/2024 9:21 AM HOME SCHOOL COORDINATOR Temperature 38 C (100.4 F) 11/20/2024 9:21 AM HOME SCHOOL COORDINATOR Respiratory Rate 18 11/20/2024 9:21 AM HOME SCHOOL COORDINATOR Oxygen Saturation 96% 11/20/2024 9:21 AM HOME SCHOOL COORDINATOR Inhaled Oxygen Concentration - - Weight 66.7 kg (147 lb) 11/20/2024 9:21 AM HOME SCHOOL COORDINATOR Height 160 cm (5' 3 ) 11/20/2024 9:21 AM HOME SCHOOL COORDINATOR Body Mass Index 26.04 11/20/2024 9:21 AM HOME SCHOOL COORDINATOR Plan of Treatment Health Maintenance Due Date [...] A/B, COVID-19 ANTIGEN Routine 11/20/2024 9:30 AM HOME SCHOOL COORDINATOR Influenza A DEXA AXIAL SKELETON BONE DENSITY 1 OR MORE SITES Routine 04/07/2017 5:00 PM CDT from Last 3 Months or Most Recently Relevant to Health Maintenance Results * (ABNORMAL) POC Influenza A/B, COVID-19 antigen (11/20/2024 9:30 AM HOME SCHOOL COORDINATOR) Influenza A Ag, POC Positive(A) Negative [facility] Influenza B Ag, POC Negative Negative [facility] COVID-19 Ag POC Presumptive Negative Presumptive Negative, Invalid [facility] Nasal 11/20/2024 9:30 AM HOME SCHOOL COORDINATOR us Ana Herman NP POINT OF CARE TEST ORDERABLES F inal Result Performing Organization Address City/State/[facility] Co de Phone Number [facility] [address] [place] [address] * Dexa Axial Skeleton Bone Density 1 or 2 Site (04/07/2017 5:00 PM CDT) Anatomical Region Laterality Modality Body N/A Radiographic Rosalee ging 04/07/2017 5:00 PM CDT Narrative 04/07/2017 5:00 PM CDT DATE OF EXAM: Apr 07 2017 12:00PM Acc#: [id number] [facility] 0001 - DEXA Bone Density Axial [...] recommended. Electronically signed by: Héctor Lockwood M.D. AUTOMATION CONTROL TECHNICIAN: [employer]SC TRANSCRIBE DATE/TIME: Apr 07 2017 3:49P RADIOLOGIST: HÉCTOR LOCKWOOD M.D. READ ON: Apr 07 2017 3:53P ORDERING DR: CHUCK GARLAND M.D. THIS DOCUMENT HAS BEEN ELECTRONICALLY SIGNED BY: HÉCTOR LOCKWOOD M.D. ON: Apr 07 2017 3:49P Attending: CHUCK GARLAND Requesting: CHUCK GARLAND Requesting Attending Attending ID: [id number] Requesting ID: [id number] Report To 1 ID: Report To 1 Name: , Report To 1 FAX: -- Report To 2 ID: Report To 2 Name: , Report To 2 FAX: -- NextGen Order #: Procedure Note Miscellaneous, Not In File / Provider, MD Jasbir - 04/07/2017 DATE OF EXAM: Apr 07 2017 12:00PM Acc#: [id number] [facility] 0001 - DEXA Bone Density Axial [...] recommended. Electronically signed by: Héctor Lockwood M.D. AUTOMATION CONTROL TECHNICIAN: [employer] TRANSCRIBE DATE/TIME: Apr 07 2017 3:49P RADIOLOGIST: HÉCTOR LOCKWOOD M.D. READ ON: Apr 07 2017 3:53P ORDERING DR: CHUCK GARLAND M.D. THIS DOCUMENT HAS BEEN ELECTRONICALLY SIGNED BY: HÉCTOR LOCKWOOD M.D. ON: Apr 07 2017 3:49P Attending: CHUCK GARLAND Requesting: CHUCK GARLAND Requesting Attending Attending ID: [id number] Requesting ID: [id number] Report To 1 ID: Report To 1 Name: , Report To 1 FAX: -- Report To 2 ID: Report To 2 Name: , Report To 2 FAX: -- NextGen Order #: Chuck Garland MD IM DXA PROCEDURES Final Result from Last 3 Months or Most Recently Relevant to Health Maintenance Additional Health Concerns Infection Onset Date Last Indicated Influenza, adult 11/20/2024 11/20/2024 Insurance [facility] INSURANCE MEDICARE [facility] Address: [address] [address] [place] [address] MEDICARE COMMERCIAL GENERIC MEDICARE [facility] Address: [address] [address] [place] [address] Advance Directives For more information, please contact: [phone] * Full Code (Latest Code Status on File) Date Activated Date Inactivated Comments 10/03/2023 3:33 AM 10/04/2023 5:48 PM Care Teams Metal Gauge Maker Relationship Specialty Start Date End Date Faustino Kendrick MD [address] [facility] [address] [place] [address] PCP - General Internal Medicine 10/03/23 J Luis Loza MD [address] [facility] [address] INTER[address] MEDICINE [address] [place] [address] Referring Physician Cardiology 10/04/23
--- OUTSIDE RECORDS SUMMARY | 2024-11-22 12:42 | XMS_ITS | Referral Summary ---
Author Organization [facility] Address [address] [place] [address] Care Team Providers Care Vice President Integrated Name Role Phone Sg Chung MD Unavailable [phone] Shirin Zambrano MD Unavailable [phone] Peter Garcia MD Primary Care Provider [phone] Source Comments [facility],non-owned Affiliates and Associated Physician Practices is amultiple site organization consisting of ambulatory clinics and hospital sitesin [place], [place], [place] and [place]. This disclosure is being madepursuant to the Care Everywhere program and may not contain all information available regarding this patient. Last updated 18.[facility] [employer] Allergies No known active allergies Medications * [...] of Treatment Not on file Care Teams Vice President Integrated Relationship Specialty [place] [address] [id number] PCP - General Internal Medicine 12/23/14 Sg Chung MD Orthopedic Surgery 11/16/12 Shirin Zambrano MD Orthopedic Surgery 12/23/14
--- OUTSIDE RECORDS SUMMARY | 2024-11-22 12:43 | XMS_ITS | Clinical Summary ---
Author Organization [facility] Address [address] [place] [address] Care Team Providers Care Plumber Assistant Name Role Phone Sg Chung MD Unavailable [phone] Shirin Zambrano MD Unavailable [phone] Peter Garcia MD Primary Care Provider [phone] Source Comments [facility] [employer],non-owned Affiliates and Associated Physician Practices is amultiple site organization consisting of ambulatory clinics and hospital sitesin [place], [place], [place] and [place]. This disclosure is being madepursuant to the Care Everywhere program and may not contain all information available regarding this patient. Last updated 18.[facility] [employer] Allergies No known active allergies Medications * [...] age to complete this topic Care Teams Plumber Assistant Relationship Specialty [place] [address] [address] PCP - General Internal Medicine 12/23/14 Sg Chung MD Orthopedic Surgery 11/16/12 Shirin Zambrano MD Orthopedic Surgery 12/23/14
--- OUTSIDE RECORDS SUMMARY | 2024-11-22 12:43 | XMS_ITS | Continuity of Care Document ---
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 Name Role Phone Peter Noguera MD Unavailable [...] SHOULDER, H IP,KNEE W/O US GUIDANCE OFFICE [id number] X-RAY EXAM OF KNEE, A/P & LAT [...] ASSESS Pt inelig neg scrn depres OFFICE [id number] SYST BP LT 130 MM HG DIAST BP < 80 MM HG FALL PLAN OF CARE DOC'D URINE INCON PLAN DOC'D PRES/ABSN URINE INCON ASSESS Pt inelig neg scrn depres CBC, INC PLATELETS AND DIFFERENTIAL COMPREHEN METABOLIC PANEL CMP 9 VITAMIN B12 (SERUM) VITAMIN D, 25-HYDROXY ROUTINE VENIPUNCTURE OFFICE [id number] SYST BP LT 130 MM HG DIAST BP 80-89 MM HG FALL PLAN OF CARE DOC'D URINE INCON PLAN DOC'D PRES/ABSN URINE INCON ASSESS Pt inelig neg scrn depres OFFICE [id number] SYST BP LT 130 MM HG DIAST BP < 80 MM HG Advance Directives Directive Yes / No Effective Date File Name No Information Encounters Encounter Description Practice Location Reason(s) For Visit Diagnoses Date Provider Providers Copied on Encounter [facility] [employer] [facility], [address], [place], [place], [address] , [place] tel:[phone] [facility] No Information 5 Chuckie Green. [address], [place], [place], [address], [place]. [phone] Referring Provider: Hermilo Martínez, [address], [place], [address]. tel:[phone] OFFICE [id number] [facility] De[facility] Rivas, [address], [place], [place], [address] , [place] tel: [phone] [facility] knee (chief complaint) Primary osteoarthritis of right knee 2 Kenya Carpio. [address], [facility] [address], [place], [place], [address], [place]. [phone] Referring Provider: Shirin Zambrano, [address] [facility] [address], [place], [address] . tel:[phone] [facility] [employer] [employer], [address], [place], [place], [address] , [place] tel: [phone] [facility] No Information 2 Jose Green. [address] [place] [address], [address] , [place], [place], [address], [place]. tel:[phone] [facility] [employer], [address], [place], [place], [address] , [place] tel:[phone] [facility] Shortness of breath 2 Jose Green. [address] [place] [address], [address], [place], [place], [address], [place]. [phone] [employer] [facility], [address], [place], [place], [address] , [place] tel:[phone] [facility] No Information 1 Agustin Aragon. [address] [facility], [address], [place], [place], [address], . tel:[phone] Referring Provider: Cristin Messer, [address] [place] [address] [address], [place], [address] . tel:[phone] [employer] [facility], [address], [place], [place], [address] , tel: [phone] [facility] Medicare preventive (chief complaint)b ack pain (chief complaint)C hronic Conditions (chief complaint) Body mass index (BMI) 26.0-26.9, adultMedicare annual wellness visit, subsequentGastro esophageal reflux disease without esophagitisRecur rent major depressive disorder, remission status unspecifiedPrima ry osteoarthritis involving multiple jointsOsteopenia of multiple sitesVitamin D deficiencyAcute bilateral low back pain without sciaticaAcute bilateral thoracic back pain 1 Gui Amaral. [address] [place] [address], [address] , [place], [place], [address], . [phone] Referring Provider: Peter Garcia, [address] [place] [address] [address] , [place], [address] . tel:[phone] [facility], [address], [place], [place], [address] , tel:[phone] [facility] COVID-19 virus IgG antibody test result unknown 1 Jose Green. [address] [place] [address], [address] , [place], [place], [address], . tel:[phone] OFFICE MAZDO-EZD-RQ PANDED [employer], [address], [place], [place], [address] , tel: [phone] [facility] stuffy head, nasal agusto/ ears stuffy (chief complaint) Body mass index (BMI) 25.0-25.9, adultUpper respiratory tract infection, unspecified type 0 Gui Amaral. [address] [place] [address], [address] , [place], [place], [address], . [phone] Referring Provider: Peter Garcia [address] [place] [address] [address], [place], [address] . tel:[phone] OFFICE EBYYY-KAB-LW TAILED [facility], [address], [place], [place], [address] , tel: [phone] [facility] vertigo (chief complaint)C hronic Conditions (chief complaint) Body mass index (BMI) 26.0-26.9, adultVertigoOste openia of multiple sitesPrimary osteoarthritis involving multiple jointsGastroesop hageal reflux disease without esophagitisTinni tus of both earsRecurrent major depressive disorder, in partial remission 9 Gui Amaral. [address] [place] [address], [address], [place], [place], [address], . tel:[phone] Referring Provider: Peter Garcia, [address] [place] [address] [address], [place], [address] . tel:[phone] OFFICE AJZPH-OYF-MW PANDED [facility], [address], [place], [place], [address] , tel: [phone] [facility] left ankle pain (chief complaint) Body mass index (BMI) 27.0-27.9, adultAcute left ankle pain Gui Amaral. [address] [place] [address], [address], [place], [place], [address], . tel:[phone] Referring Provider: Peter Garcia [address] [place] [address] [address], [place], [address] . tel:[phone] [facility], [address], [place], [place], [address] , tel: [phone] [facility] Elevated blood pressure readingWeight gainDyspnea on exertionGastroes ophageal reflux disease, esophagitis presence not specifiedDepress ion, unspecified depression typeEncounter for immunization 8 Jose Green. [address] [place] [address], [address], [place], [place], [address], . tel:[phone] Referring Provider: Peter Garcia [address] [place] [address] [address], [place], [address] . tel:[phone] [employer] [facility], [address], [place], [place], [address] , [place] tel: [phone] [facility] Left ankle swellingPrimary osteoarthritis, unspecified siteMild episode of recurrent major depressive disorderGastroes ophageal reflux disease, esophagitis presence not specifiedScreeni ng for osteoporosis 7 Gui Amaral. [address] [facility], [address], [place], [place], [address], [place]. tel:[phone] Referring Provider: Peter Garcia, [address] [facility] [address], [place], [address] . tel:[phone] [employer], [address], [place], [place], [address] , [place] tel: [phone] [facility] S/P left knee arthroscopy [facility]. [address], [place], [place], [address], [place]. tel:[phone] Referring Provider: Shirin Zambrano, [address], [place], [address] . tel:[phone] [employer], [address], [place], [place], [address] , [place] tel: [phone] [facility] S/P left knee arthroscopy 6 [facility]. [address], [place], [place], [address], [place]. tel:[phone] Referring Provider: Shirin Zambrano, [address], [place], [address] . tel:[phone] [employer] [facility], [address], [place], [place], [address] , [place] tel: [phone] [facility] Chronic meniscal tear of knee, left Dec-3 - [facility]. [address], [address], [place], [place], [address], . tel:[phone] Referring Provider: Shirin Zambrano, [address], [place], [address] . tel:[phone] [facility] [employer], [address], [place], [place], [address] , [place] tel: [phone] [facility] Left knee pain, unspecified chronicity 6 [facility]. [address], [address], [place], [place], [address], [place]. tel:[phone] Referring Provider: Shirin Zambrano, [address], [place], [address] . tel:[phone] [facility] [employer], [address], [place], [place], [address] , [place] tel: [phone] [facility] OsteoarthritisDe pressionEsophage al refluxDizzinessH yperlipidemia 5 Gui Amaral. [address] [place] [address], [address], [place], [place], [address], . tel:[phone] Referring Provider: Peter Garcia, [address] [place] [address] [address], [place], [address] . tel:[phone] [employer], [address], [place], [place], [address] , [place] tel: [phone] [facility] No Information 4 Jose Green. [address] [place] [address], [address], [place], [place], [address], . tel:[phone] Referring Provider: Peter Garcia, [address] [place] [address] [address], [place], [address] . tel:[phone] [facility] [employer], [address], [place], [place], [address] , tel: [phone] [facility] Esophageal refluxOsteoarthr itisLipomaDepres ari 4 Jose Green. [address] [place] [address], [address], [place], [place], [address], . tel:[phone] Referring Provider: Peter Garcia, [address] [place] [address] [address], [place], [address] . tel:[phone] [employer] [facility], [address], [place], [place], [address] , tel: [phone] [facility] No Information 4 Jose Green. [address] [place] [address], [address], [place], [place], [address], . tel:[phone] [employer], [address], [place], [address] , [place] tel: [phone] [facility] Esophageal reflux 3 Jose Green. [address] [place] [address], [address], [place], [place], [address], . tel:[phone] [employer] [facility], [address], [place], [place], [address] , tel: [phone] [facility] Plantar fascial fibromatosisDepr essionScreening for diabetes mellitusScreenin g for lipoid disordersChest wall discomfort 3 Law Henderson. [address] [place] [address], [address], [place], [place], [address]. tel:[phone] Referring Provider: Peter Garcia, [address] [place] [address] [address], [place], [address] . tel:[phone] [employer], [address], [place], [place], [address] , [place] tel: [phone] [facility] Depressive disorder, not elsewhere classified 2 Jose Green. [address] [place] [address], [address], [place], [place], [address], . tel:[phone] [employer] [facility], [address], [place], [place], [address] , [place] tel: [phone] [facility] JOINT PAIN-L/LEGSCREEN LIPOID DISORDERSMALAISE AND FATIGUE NEC 0 Jose Green. [address] [place] [address], [address], [place], [place], [address], . tel:[phone] [employer] [facility], [address], [place], [place], [address] , [place] tel: [phone] [facility] ALLERGIC RHINITIS NOSLONG-TERM USE MEDS NEC 7-201 0 Con[facility]. [address], [place], [address], [place]. [employer], [address], [place], [place], [address] , tel: [phone] [facility] DEPRESSIVE DISORDER NEC 1-200 7 Conversion Doctor. [address] [place], [address], . [employer], [address], [place], [place], [address] , tel: [phone] [facility] ACUTE URI NOS 6-200 6 Conversion Doctor. [facility] [place], [address], [place]. [employer], [address], [place], [place], [address] , tel: [phone] [facility] ESOPHAGEAL REFLUXDERMATITIS NOSSYMPT FEM [address] 4 Jose Green. [address] [facility], [address], [place], [place], [address], [place]. tel:[phone] Family History Family Member Type Diagnosis Age [...] Record Payers Payer name Insurance type Covered alliance party ID Authoriza tion(s) [facility] [id number] MEDICARE MB [id number] [employer] CI [id number] Social History Type Description Quantity Date Captured Comments Sex Female Smoking Status No Information Sexual Orientation Straight or heterosexual Gender Identity Female Chief Complaint And Reason For Visit No Information Reason For Referral Reason For Referral No Information Plan Of Treatment Date Type Action Status Goal Tobacco cessation counseling completed Goal Dietary [...] and lateral views ordered Referral Referred To: [address] [place] [address], [phone] Ordered: X-RAY EXAM OF THORACIC SPINE, A/P AND LAT ordered Referral Referred To: [address] [place] [address], [id number] Ordered: X-RAY EXAM OF LUMBAR SPINE, A/P [...] a few days for 10 days in [place]. Chronic Conditions *See Chronic Conditions HPI vertigo [...] She notes she is planning trip to [place] with family in few days. She states [...] Related to Gastroesophageal reflux disease without esophagitis Counseled on dietary changes Dietary management e ducation, guidance, and counseling Related to Body mass index (BMI) 26.0-26.9, adult Urinary Incontinence Disease process Fall Risk Prevention She notes she got si ck while [...] a few days for 10 days in [place]. Related to Upper respiratory tract infection, unspecified type Dietary management e ducation, guidance, and counseling Related to Body mass index (BMI) 25.0-25.9, adult Prescribed activity/ exercise education Related to Body mass index (BMI) 25.0-25.9, adult Urinary Incontinence Disease process Fall Risk Prevention She states she notic ed about 3 [...]
--- OUTSIDE RECORDS SUMMARY | 2024-11-22 12:43 | XMS_ITS | Clinical Summary ---
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
[2024-11-22 14:14] LABS: Hematocrit 38.1 % (37.0-47.0); Hemoglobin 12.8 g/dL (12.0-15.0); Mean Corpuscular HGB Conc 33.6 g/dl (32-36); Mean Corpuscular Hemoglobin 31.2 pg (26-34); Mean Corpuscular Volume 92.9 fl (80-100); Mean Platelet Volume 8.5 fl (7.4-10.4); Platelet Count Result 215 k/mm3 (150-375); Red Cell Distribution Width 13.1 % (11.5-14.5); White Blood Count 2.8 K/mm3 (4.5-10.0)
[2024-11-22 14:21] LABS: Add Urine Microscopic? YES; Appearance Urine Clear (Clear); Bacteria Urine None Seen /hpf; Bilirubin Urine Negative (Negative); Blood Urine Negative (Negative); Color Urine Yellow (Yellow); Glucose Urine UA Negative (Negative); Ketones Urine 1+ mg/dL (Negative); Leukocyte Esterase Ur Negative LEU/UL (Negative); Nitrate Urine Negative (Negative); Non Pathogenic Casts 0-2; Protein Urine Trace mg/dL (Negative); RBC Urine 0-2 /hpf (0-2); Specific Grav Ur 1.017 (1.001-1.035); Squamous Epithelial Cell Urine None Seen /hpf (Few); WBC Urine 0-5 /hpf (0-3)
[2024-11-22 14:24] LABS: Alanine Aminotransferase 26 U/L (6-35); Albumin Level 4.2 g/dL (3.5-5.1); Alkaline Phosphatase 110 U/L (38-126); Anion Gap 9 mmol/L (4-12); Aspartate Amino Transferase 39 U/L (14-36); Bilirubin,Total 0.6 mg/dL (0.2-1.3); Blood Urea Nitrogen 11 mg/dL (7-17); Calcium 8.8 mg/dL (8.4-10.2); Carbon Dioxide 27 mmol/L (22-30); Chloride 98 mmol/L (98-107); Estimated CRCL calculation 64 ml/min; Estimated Glomerular Filt Rate > 60; Glucose 88 mg/dL (65-110); Potassium 3.5 mmol/L (3.4-5.0); Sodium 134 mmol/L (137-145)
[2024-11-22 14:47] LABS: Band Neutrophils Percent 2 % (0-6); Basophils Absolute Manual 0.02 K/mm3 (0.0-0.1); Basophils Percent Manual 1 % (0-1); Eosinophils Absolute Manual 0.02 K/mm3 (0.02-0.50); Eosinophils Percent Manual 1 % (0-4); Lymphocytes Absolute Manual 0.64 K/mm3 (1.1-4.5); Monocytes Absolute Manual 0.64 K/mm3 (0.1-0.90); Monocytes Percent Manual 23 % (3-9); Neutrophils Absolute Manual 1.45 K/mm3 (1.7-7.2); Neutrophils Percent Manual 50 % (46-73); Total Cells Counted 100
[2024-11-22 14:48] LABS: Platelet Estimate Adequate (Adequate)
[2024-11-22 14:49] LABS: Schistocytes None Seen
[2024-11-22 14:52] LABS: Influenza A QL RT-PCR Positive (Negative); Influenza B QL RT-PCR Negative (Negative); RSV RNA, RT-PCR Negative (Negative); SARS-CoV-2 RNA PCR Negative (Negative)
[2024-11-22 15:39] VITALS: BP 131/67; PULSE 66; RESP 18; O2SAT 100
[2024-11-22] MEDS: ONDANSETRON INJ 4 MG/2 ML VIAL IV PUSH (15:46)
[2024-11-22] MEDS: LACTATED RINGERS 1,000 ML 999 ML IV CONT (15:46)
--- NOTE | 2024-11-22 16:35 | PC.NURSE ---
Patient given water per verbal order from Dr Gallegos. Patient states nausea has gotten better after the zofran
[2024-11-22 18:01] VITALS: BP 162/76; PULSE 71; RESP 16; O2SAT 97
== END 2024-11-22 18:05 | disposition home or self-care (01) ==
PROVIDERS: Physician Assistant; Emergency Provider Emergency Medicine; PCP Internal Medicine
DX: J10.1 Influenza due to other identified influenza virus with other respiratory manifestations (principal); R11.2 Nausea with vomiting, unspecified; Z20.822 Contact with and (suspected) exposure to COVID-19; I10 Essential (primary) hypertension; J45.909 Unspecified asthma, uncomplicated; R91.1 Solitary pulmonary nodule; Z85.3 Personal history of malignant neoplasm of breast
CPT/HCPCS: 36415; 71046; 80053; 81001; 85025; 87637; 93005; 96361; 96374; 99284; J2405; J7120

== ENCOUNTER 2025-05-16 08:37 | Outpatient (CLI) | payer MEDICARE, SELFPAY ==
--- NOTE | ~2025-05-16 | XR_ITS ---
XR hip LT 2V w AP pelvis 05/16/2025 08:57 Indication: Pelvic pain Procedure: AP pelvis and 2 views left Comparison: No prior studies for comparison. Findings: Pelvic rings intact. Mild osteoarthritis of the hips. No fracture, subluxation or dislocati on. Pelvic rings intact. There is lower lumbar spondylosis partially visualized. Impression: 1: No acute fracture. Reviewed, dictated and finalized at location A. Impression: 1: No acute fracture.
--- NOTE | ~2025-05-16 | XR_ITS ---
XR lumbar spine 2-3V 05/16/2025 08:57 Indication: Back pain Procedure: 3 views lumbar spine Comparison: 11/01/2024 Findings: There is disc narrowing at all lumbar levels. There is vertebroplasty change at L1. There i s mild superior endplate compression fracture of L4. There is facet hypertrophy at L3-4, L4-5 and L5- S1. There is grade 1 spondylolisthesis at L4-5 secondary to facet hypertrophy. Diffuse osteopenia. Th ere is dextroscoliosis centered at the thoracolumbar junction. Impression: 1: Mild superior endplate compression deformity of L4, not definitely seen on prior examination, age indeterminate. 2: Severe lumbar spondylosis with dextroscoliosis centered at the thoracolumbar junction. Reviewed, dictated and finalized at location A. Impression: 1: Mild superior endplate compression deformity of L4, not definitely seen on p rior examination, age indeterminate. 2: Severe lumbar spondylosis with dextroscoliosis centered at the thoracolumba r junction.
== END 2025-05-16 08:38 | disposition home or self-care (01) ==
PROVIDERS: PCP Internal Medicine; Visit Provider Internal Medicine
DX: S32.040A Wedge compression fracture of fourth lumbar vertebra, initial encounter for closed fracture (principal); M43.06 Spondylolysis, lumbar region; M41.85 Other forms of scoliosis, thoracolumbar region; M79.605 Pain in left leg; X58.XXXA Exposure to other specified factors, initial encounter
CPT/HCPCS: 72100; 73502